=== PATIENT | male | born 1960 | race African-American/Black ===

== ENCOUNTER 2017-05-15 19:20 | Inpatient (IN) | payer MEDICARE, MEDICAID ==
[~2017-05-15] VITALS: Ht 182.9 cm; Wt 108.9 kg
[~2017-05-15 19:20] MED LIST: AMBIEN5 M1 PO; ARTIFICIAL TEA1 EAC2 OP; ASPIR 8181 MG ORAL; AUGMENTIN 875-1 EAC1 ORAL; BUPROPION XL300 MG ORAL; CALCIUM + VITA1 EAC1 PO; CIPROFLOXACIN250 MG PO; CLONIDINE HCL0.1 MG PO; COLACE100 MG ORAL; COZAAR50 MG ORAL; DEPAKOTE250 MG PO; DEPAKOTE500 MG PO; DEXTROSE 50%-WA50 M1 IV; DIVALPROEX SOD500 MG PO; DOCUSATE SODIU100 MG ORAL; DOXYCYCLINE HY100 M2 PO; FERROUS SULFAT325 MG ORAL; FLAGYL500 MG ORAL; FUROSEMIDE40 MG ORAL; GABAPENTIN300 MG/61 ORAL; GEMFIBROZIL600 MG ORAL; GEODON40 MG ORAL; HEPARIN SO5000 UNIT2 SUBQ; LOPID600 MG ORAL; LORAZEPAM0.5 MG ORAL; LORAZEPAM2 MG/1 M3 IV; LOVENOX10 M1 SUBQ; LOVENOX60 MG/0.6 SUBQ; M.V.I. ADULT10 ML IV; MAXIPIME2 G1 IV; MILK OF MA400 MG/51 ORAL; MIRALAX17 G2 ORAL; MORPHINE 22 MG/1 ML IVP; MORPHINE SU4 MG/1 ML IJ; MULTIVITAMINS1 EAC8 ORAL; MYLANTA30 M1 ORAL; NEURONTIN400 MG ORAL; NOVOLOG100 UNIT/3 SUBQ; NOVOLOG100 UNIT/5; POTASSIUM CHLO20 ME3 PO; PROBIOTIC1 EAC2 PO; PROZAC20 MG ORAL; RISPERDAL2 MG ORAL; RISPERIDONE2 MG ORAL; SANTYL30 GM TP; TEMAZEPAM15 MG ORAL; TYLENOL650 MG/20. ORAL; VANCOMYCIN1 GM/2502 IVPB; VIBRAMYCIN100 MG ORAL; VIBRAMYCIN50 MG/5 M1 PO; VITAMIN C500 MG/11 PO; WELLBUTRIN SR100 MG ORAL; ZINC SULFATE220 M1 ORAL; ZOFRAN 4 MG4 MG/2 ML IV; ZYVOX600 MG ORAL; [UNRECOGNIZED DRUG - OTHER] SUBQ
[2017-05-15 20:30] VITALS: BP 157/107
[2017-05-15] MEDS ORDERED: Norco 5mg/325mg tab ORAL ONE (20:45)
[2017-05-15] MEDS ORDERED: Vancomycin 1.5gm/D5W 250ml 250 ML IVPB ONE (20:45)
[2017-05-15] MEDS ORDERED: ARTIFICIAL TEA1 EAC3 OP (20:47)
[2017-05-15] MEDS ORDERED: WELLBUTRIN SR100 MG ORAL (20:47)
[2017-05-15 21:05] LABS: BASOPHILS % (AUTO) 2.1 % (0.0-2.0); LYMPHOCYTES % (AUTO) 12.6 % (20.0-45.0); MEAN CORPUSCULAR HEMOGLOBIN 27.8 PG (27.0-31.0); MEAN CORPUSCULAR HGB CONC 32.4 G/DL (32.0-36.0); MEAN CORPUSCULAR VOLUME 86 FL (80-99); MEAN PLATELET VOLUME 7.3 FL (6.5-10.1); MONOCYTES % (AUTO) 15.7 % (1.0-10.0); NEUTROPHILS % (AUTO) 66.7 % (45.0-75.0); PLATELET COUNT 377 K/UL (150-450); RED CELL DISTRIBUTION WIDTH 13.8 % (11.6-14.8); WHITE BLOOD COUNT 14.1 K/UL (4.8-10.8)
--- NOTE | 2017-05-15 21:11 | Emergency Room Report ---
History of Present Illness General Chief Complaint: Skin Rash/Abscess Source: Patient, Medical Record Present Illness HPI [id number] presents with pain and "gangrene" to left foot for 1 week Denies fever/chills C/o "small" amount of pain Per EMR, has had admissions here for cellulitis previously MRI left foot + for osteo in May 2016 Negative Blood Cx November 2016 Allergies: Coded Allergies: TRIFLUOPERAZINE (Verified Allergy, Unknown, 02/15/16) TRIHEXYPHENIDYL (Verified Allergy, Unknown, 02/15/16) Uncoded Allergies: SIMAZINE (Allergy, Unknown, 05/15/17) Patient History Past Medical History: DM, other - osteomyelitis Past Surgical History: none Social History: Denies: smoking, alcohol use, drug use Immunizations: UTD Reviewed Nursing Documentation: PMH: Agreed, PSxH: Agreed Nursing Documentation-PMH Hx Cardiac Problems: No - Anemia, Bilateral cellulitis, Hyperlipidemia Hx Hypertension: Yes Hx COPD: Yes Hx Diabetes: Yes - Type 2 Hx Cancer: No Hx Gastrointestinal Problems: No Hx Neurological Problems: Yes Hx Peripheral Neuropathy: Yes Hx Weakness: Yes - generalized weakness Review of Systems All Other Systems: negative except mentioned in HPI Physical Exam Vital Signs Date Time Temp Pulse Resp B/P (MAP) Pulse Ox O2 Delivery O2 Flow Rate FiO2 05/15/17 19:12 98.1 100 16 159/99 98 Room Air Sp02 EP Interpretation: reviewed, normal General Appearance: normal inspection, well appearing, no apparent distress, alert Head: normocephalic, atraumatic Eyes: bilateral eye PERRL, bilateral eye EOMI ENT: normal ENT inspection, hearing grossly normal, normal voice Neck: normal inspection, full range of motion, supple, no bony tend Respiratory: normal inspection, lungs clear, normal breath sounds, no respiratory distress, no retraction, no wheezing Cardiovascular #1: regular rate, rhythm, no edema Gastrointestinal: normal inspection, normal bowel sounds, non tender, soft, no guarding, no hernia Genitourinary: no CVA tenderness Musculoskeletal: normal inspection, back normal, normal range of motion, Josh' s Sign negative, other - Left foot: there is multiple areas of skin breakdown and foul smelling odor/yellowish-white pus on top of foot. Able to move all toes. Sensation intact. 2+ dorsalis pedis. Right foot also with small bandage, small area of skin breakdown near ankle. Chronic venosus stasis dermatitis bilaterally. Neurologic: normal inspection, alert, responsive, speech normal Psychiatric: normal inspection, judgement/insight normal, mood/affect normal Skin: normal inspection, normal color, no rash Medical Decision Making Diagnostic Impression: Primary Impression: Cellulitis of left foot ER Course Cellulitis of left foot Had Osteo previously Labs: Leuks 14K. Previously tx by ED here with Vanc and Cefepime Blood Cx negative in November 2016 Will Tx with same Abx Endorsed to Dr Mills for med/surg admission at 915pm Last Vital Signs Date Time Temp Pulse Resp B/P (MAP) Pulse Ox O2 Delivery O2 Flow Rate FiO2 05/15/17 19:12 98.1 100 16 159/99 98 Room Air Status: improved Disposition: ADMITTED INPATIENT Condition: Serious SILVIA NIEVES M.D. May 15, 2017 21:11
[2017-05-15 21:20] LABS: ALBUMIN/GLOBULIN RATIO 0.4 (1.0-2.7); ANION GAP 5 mmol/L (5-15); ASPARTATE AMINO TRANSFERASE 19 U/L (15-37); CALCIUM 8.7 MG/DL (8.5-10.1); CARBON DIOXIDE 28 MMOL/L (21-32); CHLORIDE 101 MMOL/L (98-107); CKMB 4.9 NG/ML (0.0-3.6); CREATININE 1.3 MG/DL (0.55-1.30); GLOMERULAR FILTRATION RATE > 60 mL/min (>60); POTASSIUM 3.6 MMOL/L (3.5-5.1); SODIUM 134 MMOL/L (136-145); TOTAL PROTEIN 6.9 G/DL (6.4-8.2)
[2017-05-15 22:05] LABS: ALANINE AMINOTRANSFERASE 12 U/L (12-78)
[2017-05-15] MEDS ORDERED: Albuterol/Ipratropium 3ml neb HHN PRN (22:45)
[2017-05-15] MEDS ORDERED: LORazepam 0.5mg tab ORAL PRN (22:45)
[2017-05-15] MEDS ORDERED: Nitroglycerin Subl 0.4mg tab SL PRN (22:45)
[2017-05-15] MEDS ORDERED: Morphine Sulfate 2mg/ml Inj IVP PRN (22:45)
[2017-05-15] MEDS ORDERED: Miralax 17gm pkt ORAL PRN (22:45)
[2017-05-15 23:53] VITALS: BP 121/61
--- NOTE | 2017-05-15 23:54 | Infectious Diseases Prog Note ---
Assessment/Plan Problems: (1) Sepsis Assessment & Plan: Due to skin and soft tissue infection. (2) Cellulitis of left foot Assessment & Plan: Agree with empiric cefepime and vancomycin. Has history of Pseudomonas. Subjective Allergies: Coded Allergies: TRIFLUOPERAZINE (Verified Allergy, Unknown, 02/15/16) TRIHEXYPHENIDYL (Verified Allergy, Unknown, 02/15/16) Uncoded Allergies: SIMAZINE (Allergy, Unknown, 05/15/17) Objective Vital Signs Last 24 Hour Vital Signs Date Time Temp Pulse Resp B/P (MAP) Pulse Ox O2 Delivery O2 Flow Rate FiO2 05/15/17 23:11 98.0 107 20 127/74 98 Room Air 05/15/17 22:08 98.0 05/15/17 20:30 98.0 107 20 157/107 97 Room Air 05/15/17 19:12 98.1 100 16 159/99 98 Room Air Height (Feet): 6 Weight (Pounds): 240 Laboratory Tests Test 05/15/17 20:30 White Blood Count 14.1 K/UL (4.8-10.8) H Red Blood Count 4.40 M/UL (4.70-6.10) L Hemoglobin 12.2 G/DL (14.2-18.0) L Hematocrit 37.6 % (42.0-52.0) L Mean Corpuscular Volume 86 FL (80-99) Mean Corpuscular Hemoglobin 27.8 PG (27.0-31.0) Mean Corpuscular Hemoglobin Concent 32.4 G/DL (32.0-36.0) Red Cell Distribution Width 13.8 % (11.6-14.8) Platelet Count 377 K/UL (150-450) Mean Platelet Volume 7.3 FL (6.5-10.1) Neutrophils (%) (Auto) 66.7 % (45.0-75.0) Lymphocytes (%) (Auto) 12.6 % (20.0-45.0) L Monocytes (%) (Auto) 15.7 % (1.0-10.0) H Eosinophils (%) (Auto) 3.0 % (0.0-3.0) Basophils (%) (Auto) 2.1 % (0.0-2.0) H Sodium Level 134 MMOL/L (136-145) L Potassium Level 3.6 MMOL/L (3.5-5.1) Chloride Level 101 MMOL/L (98-107) Carbon Dioxide Level 28 MMOL/L (21-32) Anion Gap 5 mmol/L (5-15) Blood Urea Nitrogen 25 mg/dL (7-18) H Creatinine 1.3 MG/DL (0.55-1.30) Estimat Glomerular Filtration Rate > 60 mL/min (>60) Glucose Level 114 MG/DL (74-106) H Lactic Acid Level 1.20 mmol/L (0.66-2.22) Calcium Level 8.7 MG/DL (8.5-10.1) Total Bilirubin 0.2 MG/DL (0.2-1.0) Aspartate Amino Transf (AST/SGOT) 19 U/L (15-37) Alanine Aminotransferase (ALT/SGPT) 12 U/L (12-78) Alkaline Phosphatase 73 U/L (46-116) Total Creatine Kinase 364 U/L (26-308) H Creatine Kinase MB 4.9 NG/ML (0.0-3.6) H Creatine Kinase MB Relative Index 1.3 Total Protein 6.9 G/DL (6.4-8.2) Albumin 1.8 G/DL (3.4-5.0) L Globulin 5.1 g/dL Albumin/Globulin Ratio 0.4 (1.0-2.7) L Current Medications Medications (Trade) Dose Ordered Sig/Maureen Route PRN Reason Start Time Stop Time Status Last Admin Dose Admin Acetaminophen (Tylenol) 650 mg Q4H PRN ORAL fever 05/15/17 22:45 06/14/17 22:44 Albuterol/ Ipratropium (DuoNeb 0.5-3(2.5)mg/3ml) 3 ml Q4H PRN HHN Shortness of Breath 05/15/17 22:45 05/20/17 22:44 Aspirin (Ecotrin) 81 mg DAILY ORAL 05/16/17 09:00 06/15/17 08:59 Bupropion HCl (Wellbutrin XL) 100 mg BID ORAL 05/16/17 09:00 06/15/17 08:59 UNV Cefepime HCl 2 gm/ Dextrose 110 ml @ 220 mls/hr Q12H IV 05/16/17 00:00 05/23/17 00:00 Clonidine HCl (Catapres) 0.1 mg Q8HR PRN ORAL For High Blood Pressure 05/15/17 22:45 06/14/17 22:44 UNV Dextrose (Dextrose 50%) STAT PRN IV Hypoglycemia 05/15/17 22:45 06/14/17 22:44 Divalproex Sodium (Depakote) 500 mg DAILY ORAL 05/16/17 09:00 06/15/17 08:59 UNV Gabapentin (Neurontin) 300 mg THREE TIMES A DAY ORAL 05/16/17 09:00 06/15/17 08:59 Heparin Sodium (Porcine) (Heparin 5000 units/ml) 5,000 units EVERY 12 HOURS SUBQ 05/16/17 09:00 06/15/17 08:59 Insulin Aspart (NovoLOG) BEFORE MEALS AND HS SUBQ 05/16/17 06:30 06/15/17 06:29 Lorazepam (Ativan) 1 mg Q4H PRN ORAL For Anxiety 05/15/17 22:45 05/22/17 22:44 Morphine Sulfate (Morphine Sulfate) 2 mg Q4H PRN IVP Moderate Pain (Pain Scale 4-6) 05/15/17 22:45 05/22/17 22:44 Nitroglycerin (Ntg) 0.4 mg Q5M PRN SL Prn Chest Pain 05/15/17 22:45 06/14/17 22:44 Ondansetron HCl (Zofran) 4 mg Q6H PRN IVP Nausea & Vomiting 05/15/17 22:45 06/14/17 22:44 Polyethylene Glycol (Miralax) 17 gm DAILYPRN PRN ORAL Constipation 05/15/17 22:45 06/14/17 22:44 Risperidone (RisperDAL) 2 mg BID ORAL 05/16/17 09:00 06/15/17 08:59 Temazepam (Restoril) 15 mg HSPRN PRN ORAL Insomnia 05/15/17 22:45 05/22/17 22:44 Vancomycin HCl 1 gm/Dextrose 275 ml @ 183.3 mls/ hr Q12H IVPB 05/16/17 09:00 05/21/17 08:59 SHELBY DAVILA May 15, 2017 23:54
[2017-05-16] MEDS ORDERED: Cefepime 2gm ONE (00:46)
[2017-05-16] MEDS: NovoLOG Insulin Flexpen SUBQ SCH ×4 (06:30→20:44)
[2017-05-16] MEDS: Vancomycin 1 GM in D5W 275 ML IVPB SCH ×2 (09:25→20:40)
[2017-05-16] MEDS: Aspirin EC 81mg tab ORAL SCH (09:25)
[2017-05-16] MEDS: Depakote ER 500mg tab ORAL SCH (09:25)
[2017-05-16] MEDS: Heparin 5000 units/ml inj SUBQ SCH ×2 (09:32→20:47)
[2017-05-16 10:11] LABS: BASOPHILS % (AUTO) 2.6 % (0.0-2.0); EOSINOPHILS % (AUTO) 1.7 % (0.0-3.0); LYMPHOCYTES % (AUTO) 13.2 % (20.0-45.0); MEAN CORPUSCULAR HEMOGLOBIN 28.5 PG (27.0-31.0); MEAN CORPUSCULAR HGB CONC 33.3 G/DL (32.0-36.0); MEAN CORPUSCULAR VOLUME 85 FL (80-99); MONOCYTES % (AUTO) 8.1 % (1.0-10.0); NEUTROPHILS % (AUTO) 74.5 % (45.0-75.0); PLATELET COUNT 381 K/UL (150-450); RED BLOOD COUNT 4.12 M/UL (4.70-6.10); RED CELL DISTRIBUTION WIDTH 14.2 % (11.6-14.8); WHITE BLOOD COUNT 12.7 K/UL (4.8-10.8)
[2017-05-16 10:28] LABS: ALANINE AMINOTRANSFERASE 10 U/L (12-78); ALBUMIN/GLOBULIN RATIO 0.4 (1.0-2.7); ANION GAP 5 mmol/L (5-15); ASPARTATE AMINO TRANSFERASE 19 U/L (15-37); CALCIUM 8.5 MG/DL (8.5-10.1); CARBON DIOXIDE 27 MMOL/L (21-32); CHLORIDE 102 MMOL/L (98-107); CREATININE 1.1 MG/DL (0.55-1.30); GLOMERULAR FILTRATION RATE > 60 mL/min (>60); SODIUM 134 MMOL/L (136-145); TOTAL PROTEIN 6.4 G/DL (6.4-8.2)
[2017-05-16 12:00] VITALS: BP 127/84
--- NOTE | 2017-05-16 12:20 | Diagnostic Imaging Report ---
Indication: Pain Comparison: None Findings: 3 views of the left foot were obtained. Bones are severely osteopenic. Degree of osteopenia significantly reduces the sensitivity of this exam for detecting a nondisplaced fracture. That said no obvious fracture seen. No erosion or periostitis identified. No soft tissue gas seen. There is soft tissue swelling present. Impression: No obvious acute injury. Severe osteoporosis
--- NOTE | 2017-05-16 12:27 | Diagnostic Imaging Report ---
Indication: Dyspnea Comparison: 02/15/16 A single view chest radiograph was obtained. Findings: Cardiomediastinal appearance is within normal limits for age. Pulmonary vascularity is appropriate. The diaphragmatic contour is smooth and costophrenic angles are sharp. No pleural effusions are identified. The bones are unremarkable. Impression: No acute findings
[2017-05-16] MEDS: Cefepime HCl 2 GM in D5W 110 ML IV SCH ×4 (13:47→23:57)
[2017-05-16] MEDS ORDERED: Tubing IV Secondary IV ONE (15:55)
[2017-05-16] MEDS ORDERED: NS 500ML IV ONE (15:55)
[2017-05-16 16:00] VITALS: BP 130/69
[2017-05-16 20:16] VITALS: BP 138/69
--- NOTE | 2017-05-16 21:52 | Consultation ---
History of Present Illness General Date patient seen: May 15, 2017 Chief Complaint: Skin Rash/Abscess Reason for Consultation: inpatient management Present Illness HPI 56 year old with hx of htn, DM, osteomyelitis and diabetic ulcers of feet presented to [facility] with pain and "gangrene" to left foot for 1 week Denies fever/chills, C/o "small" amount of pain. Pt is admitted for worsening cellulitis and possible osteomyelitis. Allergies: Coded Allergies: TRIFLUOPERAZINE (Verified Allergy, Unknown, 02/15/16) TRIHEXYPHENIDYL (Verified Allergy, Unknown, 02/15/16) Uncoded Allergies: SIMAZINE (Allergy, Unknown, 05/15/17) Medication History Scheduled Aspirin* (Aspir 81*), 81 MG ORAL DAILY, (Reported) Bupropion Hcl* (Wellbutrin*), 100 MG ORAL BID, (Reported) Bupropion Sr* (Wellbutrin Sr*), 100 MG ORAL TWICE A DAY, (Reported) Calcium Carbonate/Vitamin D3 (Calcium + Vitamin D Tablet), 1 EACH PO DAILY, ( Reported) Ciprofloxacin* (Ciprofloxacin*), 750 MG PO BID, (Reported) Collagenase Clostridium Hist. (Santyl), 1 APPLIC TP DAILY, (Reported) Dextran 70/Hypromellose (Artificial Tears), 1 EACH OP BID, (Reported) Divalproex Sodium (Depakote), 500 MG PO DAILY, (Reported) Divalproex Sodium* (Depakote*), 250 MG PO QHS, (Reported) Docusate Sodium* (Docusate Sodium*), 100 MG ORAL TWICE A DAY, (Reported) Doxycycline Hyclate (Doxycycline Hyclate), 100 MG PO Q12HR, (Reported) Furosemide* (Lasix*), 40 MG ORAL DAILY, (Reported) Gabapentin (Gabapentin), 300 MG ORAL THREE TIMES A DAY, (Reported) Gemfibrozil (Gemfibrozil*), 600 MG ORAL BEFORE DINNER, (Reported) Gemfibrozil (Gemfibrozil*), 600 MG ORAL QHS, (Reported) Lactobacillus Acidophilus (Probiotic), 1 EACH PO BID, (Reported) Linezolid* (Zyvox*), 600 MG ORAL EVERY 12 HOURS, (Reported) Losartan Potassium* (Cozaar*), 25 MG ORAL DAILY, (Reported) Metronidazole* (Flagyl*), 500 MG ORAL EVERY 8 HOURS, (Reported) Multivitamin With Minerals (Multivitamins With Minerals*), 1 TAB ORAL DAILY, ( Reported) Polyethylene Glycol 3350* (Miralax*), 17 GM ORAL HS, (Reported) Potassium Chloride (Potassium Chloride), 10 MEQ PO DAILY, (Reported) Risperidone (Risperidone), 2 MG ORAL BID, (Reported) Vit C/Ascorbate Ca/Ascorb Sod (Vitamin C 500 Mg/15 Ml Liquid), 500 MG PO DAILY, (Reported) Zinc Sulfate (Zinc Sulfate*), 220 MG ORAL DAILY, (Reported) Scheduled PRN Acetaminophen (Acetaminophen), 650 MG ORAL Q4HR PRN for Prn Headache/Temp > 101, (Reported) Clonidine Hcl (Clonidine Hcl), 0.1 MG PO Q8HR PRN for For High Blood Pressure, ( Reported) Lorazepam* (Lorazepam*), 1 MG ORAL EVERY 4 HOURS PRN for For Anxiety, (Reported) Magnesium Hydroxide* (Milk Of Magnesia*), 30 ML ORAL DAILY PRN for Constipation, (Reported) Temazepam (Temazepam*), 15 MG ORAL QHS PRN for Insomnia, (Reported) Miscellaneous Medications Dextran 70/Hypromellose/Pf (Artificial Tears Drops), 1 EACH OP, (Reported) Insulin Aspart* (Novolog*), 0 SUBQ, (Reported) Patient History Healthcare decision maker Taina Decker Resuscitation status Full Code Advanced Directive on File Past Medical/Surgical History Past Medical/Surgical History: (1) Anxiety (2) COPD (chronic obstructive pulmonary disease) (3) Psychiatric disorder (4) Cellulitis of left foot Review of Systems All Other Systems: negative except mentioned in HPI Physical Exam General Appearance: WD/WN Lines, tubes and drains: peripheral HEENT: normocephalic, atraumatic Neck: non-tender, normal alignment Abdomen: normal bowel sounds Extremities: normal range of motion, moderate edema, other Skin Exam: normal pigmentation, warm/dry, rash Last 24 Hour Vital Signs Date Time Temp Pulse Resp B/P (MAP) Pulse Ox O2 Delivery O2 Flow Rate FiO2 05/16/17 20:16 98.2 91 20 138/69 97 Room Air 05/16/17 19:53 80 18 Room Air 21 05/16/17 16:00 97.9 91 18 130/69 96 Room Air 05/16/17 12:00 97.3 95 18 127/84 97 Room Air 05/15/17 23:53 98.1 113 20 121/61 97 Room Air 05/15/17 23:11 98.0 107 20 127/74 98 Room Air 05/15/17 22:08 98.0 Intake and Output 05/16/17 05/17/17 19:00 07:00 Intake Total 945.0 ml Output Total 1900 ml Balance -955.0 ml Intake Oral 560 ml IV Total 385.0 ml Output Urine Total 1900 ml Laboratory Tests Test 05/16/17 09:30 White Blood Count 12.7 K/UL (4.8-10.8) H Red Blood Count 4.12 M/UL (4.70-6.10) L Hemoglobin 11.7 G/DL (14.2-18.0) L Hematocrit 35.2 % (42.0-52.0) L Mean Corpuscular Volume 85 FL (80-99) Mean Corpuscular Hemoglobin 28.5 PG (27.0-31.0) Mean Corpuscular Hemoglobin Concent 33.3 G/DL (32.0-36.0) Red Cell Distribution Width 14.2 % (11.6-14.8) Platelet Count 381 K/UL (150-450) Mean Platelet Volume 8.0 FL (6.5-10.1) Neutrophils (%) (Auto) 74.5 % (45.0-75.0) Lymphocytes (%) (Auto) 13.2 % (20.0-45.0) L Monocytes (%) (Auto) 8.1 % (1.0-10.0) Eosinophils (%) (Auto) 1.7 % (0.0-3.0) Basophils (%) (Auto) 2.6 % (0.0-2.0) H Sodium Level 134 MMOL/L (136-145) L Potassium Level 4.0 MMOL/L (3.5-5.1) Chloride Level 102 MMOL/L (98-107) Carbon Dioxide Level 27 MMOL/L (21-32) Anion Gap 5 mmol/L (5-15) Blood Urea Nitrogen 22 mg/dL (7-18) H Creatinine 1.1 MG/DL (0.55-1.30) Estimat Glomerular Filtration Rate > 60 mL/min (>60) Glucose Level 106 MG/DL (74-106) Calcium Level 8.5 MG/DL (8.5-10.1) Total Bilirubin 0.2 MG/DL (0.2-1.0) Aspartate Amino Transf (AST/SGOT) 19 U/L (15-37) Alanine Aminotransferase (ALT/SGPT) 10 U/L (12-78) L Alkaline Phosphatase 65 U/L (46-116) Total Protein 6.4 G/DL (6.4-8.2) Albumin 1.7 G/DL (3.4-5.0) L Globulin 4.7 g/dL Albumin/Globulin Ratio 0.4 (1.0-2.7) L Height (Feet): 6 Height (Inches): 0.00 Weight (Pounds): 240 Medications Current Medications Medications (Trade) Dose Ordered Sig/Maureen Route PRN Reason Start Time Stop Time Status Last Admin Dose Admin Acetaminophen (Tylenol) 650 mg Q4H PRN ORAL fever 05/15/17 22:45 06/14/17 22:44 Albuterol/ Ipratropium (DuoNeb 0.5-3(2.5)mg/3ml) 3 ml Q4H PRN HHN Shortness of Breath 05/15/17 22:45 05/20/17 22:44 Aspirin (Ecotrin) 81 mg DAILY ORAL 05/16/17 09:00 06/15/17 08:59 05/16/17 09:25 Bupropion HCl (Wellbutrin) 100 mg BID ORAL 05/16/17 09:00 06/15/17 08:59 05/16/17 17:36 Cefepime HCl 2 gm/ Dextrose 110 ml @ 220 mls/hr Q12H IV 05/16/17 00:00 05/23/17 00:00 05/16/17 13:47 Clonidine HCl (Catapres) 0.1 mg Q8H PRN ORAL SBP > 160 mmHg 05/15/17 22:45 06/14/17 22:44 Dextrose (Dextrose 50%) STAT PRN IV Hypoglycemia 05/15/17 22:45 06/14/17 22:44 Divalproex Sodium (Depakote ER) 500 mg DAILY ORAL 05/16/17 09:00 06/15/17 08:59 05/16/17 09:25 Gabapentin (Neurontin) 300 mg THREE TIMES A DAY ORAL 05/16/17 09:00 06/15/17 08:59 05/16/17 17:36 Heparin Sodium (Porcine) (Heparin 5000 units/ml) 5,000 units EVERY 12 HOURS SUBQ 05/16/17 09:00 06/15/17 08:59 05/16/17 20:47 Insulin Aspart (NovoLOG) BEFORE MEALS AND HS SUBQ 05/16/17 06:30 06/15/17 06:29 Lorazepam (Ativan) 1 mg Q4H PRN ORAL For Anxiety 05/15/17 22:45 05/22/17 22:44 Morphine Sulfate (Morphine Sulfate) 2 mg Q4H PRN IVP Moderate Pain (Pain Scale 4-6) 05/15/17 22:45 05/22/17 22:44 Nitroglycerin (Ntg) 0.4 mg Q5M PRN SL Prn Chest Pain 05/15/17 22:45 06/14/17 22:44 Ondansetron HCl (Zofran) 4 mg Q6H PRN IVP Nausea & Vomiting 05/15/17 22:45 06/14/17 22:44 Polyethylene Glycol (Miralax) 17 gm DAILYPRN PRN ORAL Constipation 05/15/17 22:45 06/14/17 22:44 Risperidone (RisperDAL) 2 mg BID ORAL 05/16/17 09:00 06/15/17 08:59 05/16/17 17:36 Temazepam (Restoril) 15 mg HSPRN PRN ORAL Insomnia 05/15/17 22:45 05/22/17 22:44 Vancomycin HCl 1 gm/Dextrose 275 ml @ 183.3 mls/ hr Q12H IVPB 05/16/17 09:00 05/21/17 08:59 05/16/17 20:40 Assessment/Plan Problem List: (1) Sepsis ICD Codes: A41.9 - Sepsis, unspecified organism SNOMED: 99411366 (2) Cellulitis of left foot ICD Codes: L03.116 - Cellulitis of left lower limb SNOMED: 450737857 (3) Psychiatric disorder ICD Codes: F99 - Mental disorder, not otherwise specified SNOMED: 18555519, 426775158 (4) Anxiety ICD Codes: F41.9 - Anxiety disorder, unspecified SNOMED: 54824605 (5) COPD (chronic obstructive pulmonary disease) ICD Codes: J44.9 - Chronic obstructive pulmonary disease, unspecified SNOMED: 87537238 Assessment/Plan guevara culture IV abx wound care sliding scale, diabetic diet DALE EARLY May 16, 2017 21:52
--- NOTE | 2017-05-16 21:53 | Pulmonology Progress Note ---
Assessment/Plan Problems: (1) Sepsis (2) Cellulitis of left foot (3) Psychiatric disorder (4) Anxiety (5) COPD (chronic obstructive pulmonary disease) Assessment/Plan guevara culture IV abx wound care sliding scale, diabetic diet all noted check electrolytes f/u ID recommendations Subjective ROS Limited/Unobtainable: No Constitutional: Reports: no symptoms Respiratory: Reports: no symptoms Allergies: Coded Allergies: TRIFLUOPERAZINE (Verified Allergy, Unknown, 02/15/16) TRIHEXYPHENIDYL (Verified Allergy, Unknown, 02/15/16) Uncoded Allergies: SIMAZINE (Allergy, Unknown, 05/15/17) Objective Last 24 Hour Vital Signs Date Time Temp Pulse Resp B/P (MAP) Pulse Ox O2 Delivery O2 Flow Rate FiO2 05/16/17 20:16 98.2 91 20 138/69 97 Room Air 05/16/17 19:53 80 18 Room Air 21 05/16/17 16:00 97.9 91 18 130/69 96 Room Air 05/16/17 12:00 97.3 95 18 127/84 97 Room Air 05/15/17 23:53 98.1 113 20 121/61 97 Room Air 05/15/17 23:11 98.0 107 20 127/74 98 Room Air 05/15/17 22:08 98.0 Intake and Output 05/16/17 05/17/17 19:00 07:00 Intake Total 945.0 ml Output Total 1900 ml Balance -955.0 ml Intake Oral 560 ml IV Total 385.0 ml Output Urine Total 1900 ml General Appearance: WD/WN Respiratory/Chest: chest wall non-tender, lungs clear Cardiovascular: normal peripheral pulses, normal rate Abdomen: normal bowel sounds, soft, non tender Genitourinary: normal external genitalia Extremities: no cyanosis 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, abnormal gait Laboratory Tests 05/16/17 09:30: White Blood Count 12.7H, Red Blood Count 4.12L, Hemoglobin 11.7L, Hematocrit 35.2L, Mean Corpuscular Volume 85, Mean Corpuscular Hemoglobin 28.5, Mean Corpuscular Hemoglobin Concent 33.3, Red Cell Distribution Width 14.2, Platelet Count 381, Mean Platelet Volume 8.0, Neutrophils (%) (Auto) 74.5, Lymphocytes (% ) (Auto) 13.2L, Monocytes (%) (Auto) 8.1, Eosinophils (%) (Auto) 1.7, Basophils (%) (Auto) 2.6H, Sodium Level 134L, Potassium Level 4.0, Chloride Level 102, Carbon Dioxide Level 27, Anion Gap 5, Blood Urea Nitrogen 22H, Creatinine 1.1, Estimat Glomerular Filtration Rate > 60, Glucose Level 106, Calcium Level 8.5, Total Bilirubin 0.2, Aspartate Amino Transf (AST/SGOT) 19, Alanine Aminotransferase (ALT/SGPT) 10L, Alkaline Phosphatase 65, Total Protein 6.4, Albumin 1.7L, Globulin 4.7, Albumin/Globulin Ratio 0.4L Current Medications Medications (Trade) Dose Ordered Sig/Maureen Route PRN Reason Start Time Stop Time Status Last Admin Dose Admin Acetaminophen (Tylenol) 650 mg Q4H PRN ORAL fever 05/15/17 22:45 06/14/17 22:44 Albuterol/ Ipratropium (DuoNeb 0.5-3(2.5)mg/3ml) 3 ml Q4H PRN HHN Shortness of Breath 05/15/17 22:45 05/20/17 22:44 Aspirin (Ecotrin) 81 mg DAILY ORAL 05/16/17 09:00 06/15/17 08:59 05/16/17 09:25 Bupropion HCl (Wellbutrin) 100 mg BID ORAL 05/16/17 09:00 06/15/17 08:59 05/16/17 17:36 Cefepime HCl 2 gm/ Dextrose 110 ml @ 220 mls/hr Q12H IV 05/16/17 00:00 05/23/17 00:00 05/16/17 13:47 Clonidine HCl (Catapres) 0.1 mg Q8H PRN ORAL SBP > 160 mmHg 05/15/17 22:45 06/14/17 22:44 Dextrose (Dextrose 50%) STAT PRN IV Hypoglycemia 05/15/17 22:45 06/14/17 22:44 Divalproex Sodium (Depakote ER) 500 mg DAILY ORAL 05/16/17 09:00 06/15/17 08:59 05/16/17 09:25 Gabapentin (Neurontin) 300 mg THREE TIMES A DAY ORAL 05/16/17 09:00 06/15/17 08:59 05/16/17 17:36 Heparin Sodium (Porcine) (Heparin 5000 units/ml) 5,000 units EVERY 12 HOURS SUBQ 05/16/17 09:00 06/15/17 08:59 05/16/17 20:47 Insulin Aspart (NovoLOG) BEFORE MEALS AND HS SUBQ 05/16/17 06:30 06/15/17 06:29 Lorazepam (Ativan) 1 mg Q4H PRN ORAL For Anxiety 05/15/17 22:45 05/22/17 22:44 Morphine Sulfate (Morphine Sulfate) 2 mg Q4H PRN IVP Moderate Pain (Pain Scale 4-6) 05/15/17 22:45 05/22/17 22:44 Nitroglycerin (Ntg) 0.4 mg Q5M PRN SL Prn Chest Pain 05/15/17 22:45 06/14/17 22:44 Ondansetron HCl (Zofran) 4 mg Q6H PRN IVP Nausea & Vomiting 05/15/17 22:45 06/14/17 22:44 Polyethylene Glycol (Miralax) 17 gm DAILYPRN PRN ORAL Constipation 05/15/17 22:45 06/14/17 22:44 Risperidone (RisperDAL) 2 mg BID ORAL 05/16/17 09:00 06/15/17 08:59 05/16/17 17:36 Temazepam (Restoril) 15 mg HSPRN PRN ORAL Insomnia 05/15/17 22:45 05/22/17 22:44 Vancomycin HCl 1 gm/Dextrose 275 ml @ 183.3 mls/ hr Q12H IVPB 05/16/17 09:00 05/21/17 08:59 05/16/17 20:40 DALE EARLY May 16, 2017 21:53
[2017-05-17] MEDS: NovoLOG Insulin Flexpen SUBQ SCH ×4 (05:55→21:00)
[2017-05-17 08:00] VITALS: BP 120/73
--- NOTE | 2017-05-17 08:30 | History and Physical Report ---
DATE OF ADMISSION: 05/15/2017 TIME SEEN: 3 p.m. CONSULTANTS: 1. Des Hall D.P.M. 2. Dr. Villasenor. 3. Jimi Leos M.D. 4. Tadeo Turner M.D. CHIEF COMPLAINTS: Cellulitis of the left foot, edema, and sepsis. BRIEF HISTORY: This is a 56-[facility]-old [facility], who presents with increased cellulitis of the left foot. The patient has had a history of osteomyelitis and came in, diagnosed with the above, white count 14, and admitted to the medical floor for further treatment. Currently, calm in bed, confused, and not talking much. PAST MEDICAL HISTORY: Encephalopathy, diabetes, COPD, and anemia. PAST SURGICAL HISTORY: Unknown. MEDICATIONS: Ecotrin, Wellbutrin, Depakote, Neurontin, Risperdal, vancomycin, NovoLog, Catapres, cefepime, and lorazepam. ALLERGIES: Trifluoperazine, trihexyphenidyl, and . SOCIAL HISTORY: Unable to obtain secondary to the patient's confusion. REVIEW OF SYSTEMS: Unavailable. PHYSICAL EXAMINATION: GENERAL: Calm in bed, oriented x1, and in no acute distress. VITAL SIGNS: Temperature 97 degrees, pulse 95, respirations 18, and blood pressure 127/84. CARDIOVASCULAR: No murmurs. LUNGS: Poor air exchange. ABDOMEN: Bowel sounds are positive. Nontender and nondistended. EXTREMITIES: No cyanosis or clubbing. There is 1+ edema. Foot dressing dirty, disheveled, slightly stained. LABORATORY DATA: Labs, at this time, show white count 12.7 and hemoglobin and hematocrit are 11.7 and 35, otherwise CBC is normal. BMP shows sodium 134, BUN 22. Albumin 1.7. ASSESSMENT AND PLAN: 1. Cellulitis of the left foot. 2. Sepsis. 3. History of osteomyelitis. 4. Anemia. 5. Leukocytosis. 6. Edema. 7. Encephalopathy. 8. Chronic obstructive pulmonary disease. 9. Malnutrition. PLAN: 1. Continue premedications and wound care. 2. Antibiotics per Infectious Disease. 3. O2 and pulmonary treatment as needed. 4. Blood pressure and blood sugar control. 5. Pain control. 6. Dietary followup. 7. CBC and BMP in the morning. 8. We will continue to follow this patient medically. 9. Dr. Hall, Dr. Villasenor, Dr. Leos, and Dr. Turner to consult. Kike Mills D.O. DR: REGAN JOB#: [id number] CC:
[2017-05-17] MEDS: Heparin 5000 units/ml inj SUBQ SCH ×2 (09:00→21:42)
--- NOTE | 2017-05-17 09:31 | Pulmonology Progress Note ---
Assessment/Plan Assessment/Plan ASSESSMENT Left foot cellulitis hx of osteo HTN DM COPD PLAN OF CARE MS floor abx blood cx preliminary negative, get wound cx ID follows fup with cx O2 HHN prn CXR negative Venous Duplex BLE negative foot X ray no acute injury, + severe OP BS management with SS of insulin BP management Pain management continue ASA DVT prophylaxis declined wound nurse eval consider podiatry eval-per PMD discretion wound care case discussed and evaluated by supervising physician Subjective Allergies: Coded Allergies: TRIFLUOPERAZINE (Verified Allergy, Unknown, 02/15/16) TRIHEXYPHENIDYL (Verified Allergy, Unknown, 02/15/16) Uncoded Allergies: SIMAZINE (Allergy, Unknown, 05/15/17) Subjective leuk trending down afebrile Objective Last 24 Hour Vital Signs Date Time Temp Pulse Resp B/P (MAP) Pulse Ox O2 Delivery O2 Flow Rate FiO2 05/17/17 08:00 97.7 105 18 120/73 98 Room Air 05/16/17 20:16 98.2 91 20 138/69 97 Room Air 05/16/17 19:53 80 18 Room Air 21 05/16/17 16:00 97.9 91 18 130/69 96 Room Air 05/16/17 12:00 97.3 95 18 127/84 97 Room Air General Appearance: no acute distress, other - AA male disheveled, looking older than his biological age HEENT: normocephalic, atraumatic, anicteric Respiratory/Chest: lungs clear - with moderate air entry , no respiratory distress, no accessory muscle use Cardiovascular: normal rate, regular rhythm, no JVD Abdomen: normal bowel sounds, soft, non tender, non distended Extremities: other - L foot wound with erythem, edema, yellowish drainage Neurologic/Psychiatric: alert, responsive Microbiology Date/Time Source Procedure Growth Status 05/15/17 20:30 Blood Blood Culture - Preliminary NO GROWTH AFTER 24 HOURS Resulted 05/15/17 20:15 Blood Blood Culture - Preliminary NO GROWTH AFTER 24 HOURS Resulted Laboratory Tests 05/16/17 09:30: White Blood Count 12.7H, Red Blood Count 4.12L, Hemoglobin 11.7L, Hematocrit 35.2L, Mean Corpuscular Volume 85, Mean Corpuscular Hemoglobin 28.5, Mean Corpuscular Hemoglobin Concent 33.3, Red Cell Distribution Width 14.2, Platelet Count 381, Mean Platelet Volume 8.0, Neutrophils (%) (Auto) 74.5, Lymphocytes (% ) (Auto) 13.2L, Monocytes (%) (Auto) 8.1, Eosinophils (%) (Auto) 1.7, Basophils (%) (Auto) 2.6H, Sodium Level 134L, Potassium Level 4.0, Chloride Level 102, Carbon Dioxide Level 27, Anion Gap 5, Blood Urea Nitrogen 22H, Creatinine 1.1, Estimat Glomerular Filtration Rate > 60, Glucose Level 106, Calcium Level 8.5, Total Bilirubin 0.2, Aspartate Amino Transf (AST/SGOT) 19, Alanine Aminotransferase (ALT/SGPT) 10L, Alkaline Phosphatase 65, Total Protein 6.4, Albumin 1.7L, Globulin 4.7, Albumin/Globulin Ratio 0.4L Current Medications Medications (Trade) Dose Ordered Sig/Maureen Route PRN Reason Start Time Stop Time Status Last Admin Dose Admin Acetaminophen (Tylenol) 650 mg Q4H PRN ORAL fever 05/15/17 22:45 06/14/17 22:44 Albuterol/ Ipratropium (DuoNeb 0.5-3(2.5)mg/3ml) 3 ml Q4H PRN HHN Shortness of Breath 05/15/17 22:45 05/20/17 22:44 Aspirin (Ecotrin) 81 mg DAILY ORAL 05/16/17 09:00 06/15/17 08:59 05/16/17 09:25 Bupropion HCl (Wellbutrin) 100 mg BID ORAL 05/16/17 09:00 06/15/17 08:59 05/16/17 17:36 Cefepime HCl 2 gm/ Dextrose 110 ml @ 220 mls/hr Q12H IV 05/16/17 00:00 05/23/17 00:00 05/16/17 23:57 Clonidine HCl (Catapres) 0.1 mg Q8H PRN ORAL SBP > 160 mmHg 05/15/17 22:45 06/14/17 22:44 Dextrose (Dextrose 50%) STAT PRN IV Hypoglycemia 05/15/17 22:45 06/14/17 22:44 Divalproex Sodium (Depakote ER) 500 mg DAILY ORAL 05/16/17 09:00 06/15/17 08:59 05/16/17 09:25 Gabapentin (Neurontin) 300 mg THREE TIMES A DAY ORAL 05/16/17 09:00 06/15/17 08:59 05/16/17 17:36 Heparin Sodium (Porcine) (Heparin 5000 units/ml) 5,000 units EVERY 12 HOURS SUBQ 05/16/17 09:00 06/15/17 08:59 05/16/17 20:47 Insulin Aspart (NovoLOG) BEFORE MEALS AND HS SUBQ 05/16/17 06:30 06/15/17 06:29 Lorazepam (Ativan) 1 mg Q4H PRN ORAL For Anxiety 05/15/17 22:45 05/22/17 22:44 Morphine Sulfate (Morphine Sulfate) 2 mg Q4H PRN IVP Moderate Pain (Pain Scale 4-6) 05/15/17 22:45 05/22/17 22:44 Nitroglycerin (Ntg) 0.4 mg Q5M PRN SL Prn Chest Pain 05/15/17 22:45 06/14/17 22:44 Ondansetron HCl (Zofran) 4 mg Q6H PRN IVP Nausea & Vomiting 05/15/17 22:45 06/14/17 22:44 Polyethylene Glycol (Miralax) 17 gm DAILYPRN PRN ORAL Constipation 05/15/17 22:45 06/14/17 22:44 Risperidone (RisperDAL) 2 mg BID ORAL 05/16/17 09:00 06/15/17 08:59 05/16/17 17:36 Temazepam (Restoril) 15 mg HSPRN PRN ORAL Insomnia 05/15/17 22:45 05/22/17 22:44 Vancomycin HCl 1 gm/Dextrose 275 ml @ 183.3 mls/ hr Q12H IVPB 05/16/17 09:00 05/21/17 08:59 05/16/17 20:40 Bri Reza NP ([facility]anchtein) May 17, 2017 09:31
[2017-05-17] MEDS: Depakote ER 500mg tab ORAL SCH (09:46)
[2017-05-17] MEDS: Aspirin EC 81mg tab ORAL SCH (09:46)
[2017-05-17] MEDS: Vancomycin 1 GM in D5W 275 ML IVPB SCH (11:02)
[2017-05-17 12:00] VITALS: BP 115/69
[2017-05-17] MEDS: Cefepime HCl 2 GM in D5W 110 ML IV SCH (12:33)
--- NOTE | 2017-05-17 13:18 | General Progress Note ---
Assessment/Plan Problem List: (1) Hyponatremia ICD Codes: E87.1 - Hypo-osmolality and hyponatremia SNOMED: 43197183 (2) Rash and other nonspecific skin eruption ICD Codes: R21 - Rash and other nonspecific skin eruption SNOMED: 882117919 (3) Open wnd foot-complicated ICD Codes: S91.309A - Unspecified open wound, unspecified foot, initial encounter SNOMED: 461099333 (4) UTI (urinary tract infection) ICD Codes: N39.0 - Urinary tract infection, site not specified SNOMED: 25994448 (5) Anemia ICD Codes: D64.9 - Anemia, unspecified SNOMED: 776157696 (6) Cellulitis of left foot ICD Codes: L03.116 - Cellulitis of left lower limb SNOMED: 661730681 (7) Cellulitis ICD Codes: L03.90 - Cellulitis, unspecified SNOMED: 557180371 (8) Sepsis ICD Codes: A41.9 - Sepsis, unspecified organism SNOMED: 33076959 (9) COPD (chronic obstructive pulmonary disease) ICD Codes: J44.9 - Chronic obstructive pulmonary disease, unspecified SNOMED: 40013913 (10) Anxiety ICD Codes: F41.9 - Anxiety disorder, unspecified SNOMED: 35743421 (11) Psychiatric disorder ICD Codes: F99 - Mental disorder, not otherwise specified SNOMED: 18459046, 520180812 Status: stable, progressing, tolerating diet Assessment/Plan ot pt diet wound care abc cbc bmp am psyc transfer if clear Subjective Constitutional: Reports: weakness Allergies: Coded Allergies: TRIFLUOPERAZINE (Verified Allergy, Unknown, 02/15/16) TRIHEXYPHENIDYL (Verified Allergy, Unknown, 02/15/16) Uncoded Allergies: SIMAZINE (Allergy, Unknown, 05/15/17) All Systems: reviewed and negative except above Subjective sl confused Objective Last 24 Hour Vital Signs Date Time Temp Pulse Resp B/P (MAP) Pulse Ox O2 Delivery O2 Flow Rate FiO2 05/17/17 12:00 97.5 96 18 115/69 98 Room Air 05/17/17 10:27 82 16 Room Air 21 05/17/17 08:00 97.7 105 18 120/73 98 Room Air 05/16/17 20:16 98.2 91 20 138/69 97 Room Air 05/16/17 19:53 80 18 Room Air 21 05/16/17 16:00 97.9 91 18 130/69 96 Room Air Height (Feet): 6 Height (Inches): 0.00 Weight (Pounds): 240 General Appearance: lethargic, confused EENT: normal ENT inspection Neck: normal alignment Cardiovascular: normal peripheral pulses, normal rate, regular rhythm Respiratory/Chest: chest wall non-tender, lungs clear, normal breath sounds Abdomen: normal bowel sounds, non tender, soft Extremities: normal inspection Edema: no edema noted Arm (L), no edema noted Arm (R), no edema noted Leg (L), no edema noted Leg (R), no edema noted Pedal (L), no edema noted Pedal (R), no edema noted Generalized Neurologic: responsive, motor weakness Skin: normal pigmentation, warm/dry ALCIDES VILLANUEVA May 17, 2017 13:18
--- NOTE | 2017-05-17 13:33 | Wound Nurse Progress Note ---
Wound RN Progress Note Wound Consult Pt refused for assessment. Offered X2, Stated "they took the picture. you can see it from the picture". Reported to the RN who is taking the care of the Pt. JANELL DELONG RN May 17, 2017 13:33
[2017-05-17 20:27] VITALS: BP 133/79
[2017-05-17] MEDS: Linezolid 600mg/300ml (Pre-Mix) IVPB SCH (21:17)
--- NOTE | 2017-05-17 23:24 | Infectious Diseases Prog Note ---
Assessment/Plan Problems: (1) Sepsis Assessment & Plan: Due to skin and soft tissue infection. WBC better. (2) Cellulitis of left foot Assessment & Plan: Continue with cefepime. Change vancomycin to linezolid until patient more compliant. Has history of Pseudomonas. Follow-up wound culture. (3) Non-compliance Assessment & Plan: Refusing lab work. Subjective Allergies: Coded Allergies: TRIFLUOPERAZINE (Verified Allergy, Unknown, 02/15/16) TRIHEXYPHENIDYL (Verified Allergy, Unknown, 02/15/16) Uncoded Allergies: SIMAZINE (Allergy, Unknown, 05/15/17) Objective Vital Signs Last 24 Hour Vital Signs Date Time Temp Pulse Resp B/P (MAP) Pulse Ox O2 Delivery O2 Flow Rate FiO2 05/17/17 20:27 97.6 93 18 133/79 98 Room Air 05/17/17 20:16 97 16 Room Air 21 05/17/17 12:00 97.5 96 18 115/69 98 Room Air 05/17/17 10:27 82 16 Room Air 21 05/17/17 08:00 97.7 105 18 120/73 98 Room Air Height (Feet): 6 Height (Inches): 0.00 Weight (Pounds): 240 Microbiology Date/Time Source Procedure Growth Status 05/15/17 20:30 Blood Blood Culture - Preliminary NO GROWTH AFTER 24 HOURS Resulted 05/15/17 20:15 Blood Blood Culture - Preliminary NO GROWTH AFTER 24 HOURS Resulted Current Medications Medications (Trade) Dose Ordered Sig/Maureen Route PRN Reason Start Time Stop Time Status Last Admin Dose Admin Acetaminophen (Tylenol) 650 mg Q4H PRN ORAL fever 05/15/17 22:45 06/14/17 22:44 Albuterol/ Ipratropium (DuoNeb 0.5-3(2.5)mg/3ml) 3 ml Q4H PRN HHN Shortness of Breath 05/15/17 22:45 05/20/17 22:44 Aspirin (Ecotrin) 81 mg DAILY ORAL 05/16/17 09:00 06/15/17 08:59 05/17/17 09:46 Cefepime HCl 2 gm/ Dextrose 110 ml @ 220 mls/hr Q12H IV 05/16/17 00:00 05/23/17 00:00 05/17/17 12:33 Clonidine HCl (Catapres) 0.1 mg Q8H PRN ORAL SBP > 160 mmHg 05/15/17 22:45 06/14/17 22:44 Dextrose (Dextrose 50%) STAT PRN IV Hypoglycemia 05/15/17 22:45 06/14/17 22:44 Divalproex Sodium (Depakote ER) 500 mg DAILY ORAL 05/16/17 09:00 06/15/17 08:59 05/17/17 09:46 Gabapentin (Neurontin) 300 mg THREE TIMES A DAY ORAL 05/16/17 09:00 06/15/17 08:59 05/17/17 17:19 Heparin Sodium (Porcine) (Heparin 5000 units/ml) 5,000 units EVERY 12 HOURS SUBQ 05/16/17 09:00 06/15/17 08:59 05/17/17 21:42 Insulin Aspart (NovoLOG) BEFORE MEALS AND HS SUBQ 05/16/17 06:30 06/15/17 06:29 Linezolid 300 ml @ 300 mls/hr Q12HR IVPB 05/17/17 21:00 05/24/17 20:59 05/17/17 21:17 Lorazepam (Ativan) 1 mg Q4H PRN ORAL For Anxiety 05/15/17 22:45 05/22/17 22:44 Morphine Sulfate (Morphine Sulfate) 2 mg Q4H PRN IVP Moderate Pain (Pain Scale 4-6) 05/15/17 22:45 05/22/17 22:44 Nitroglycerin (Ntg) 0.4 mg Q5M PRN SL Prn Chest Pain 05/15/17 22:45 06/14/17 22:44 Ondansetron HCl (Zofran) 4 mg Q6H PRN IVP Nausea & Vomiting 05/15/17 22:45 06/14/17 22:44 Polyethylene Glycol (Miralax) 17 gm DAILYPRN PRN ORAL Constipation 05/15/17 22:45 06/14/17 22:44 Risperidone (RisperDAL) 2 mg BID ORAL 05/16/17 09:00 06/15/17 08:59 05/17/17 17:18 Temazepam (Restoril) 15 mg HSPRN PRN ORAL Insomnia 05/15/17 22:45 05/22/17 22:44 SHELBY DAVILA May 17, 2017 23:24
[2017-05-18] MEDS: Cefepime HCl 2 GM in D5W 110 ML IV SCH ×3 (00:05→23:38)
[2017-05-18 00:16] VITALS: BP 130/61
[2017-05-18] MEDS: NovoLOG Insulin Flexpen SUBQ SCH ×4 (06:30→21:00)
--- NOTE | 2017-05-18 07:55 | Consultation ---
Consult Note Assessment/Plan A/ 1) Sepsis 2) Cellulitis of LLE 3) Nonpressure ulcer of left ankle to level of muscle 4) Nonpressure ulcer of left foot to level of muscle 5) Nonpressure ulcer of right ankle to level of muscle 6) Edema 7) DM 8) Noncompliant 9) Anemia P/ 1) Patient would not allow me to fully examine him 2) Extensive chart review performed from previous admissions 3) Wound care recommendations to include edema control 4) Wounds are deteriorating 2/2 noncompliance. Patient would benefit from debridement of wounds but refuses 5) Abx per ID 6) Medical optimization of edema, DM and anemia to assist in wound healing. 7) Will follow Thank you Des Navarro DPM May 18, 2017 07:55
--- NOTE | 2017-05-18 08:30 | Pulmonology Progress Note ---
Assessment/Plan Assessment/Plan ASSESSMENT Left foot cellulitis hx of osteo Non pressure ulcer of left ankle to level of muscle Non pressure ulcer of left foot to level of muscle Non pressure ulcer of right ankle to level of muscle HTN DM COPD noncompliance anemia hypoalbuminemia possible protein calorie malnutrition PLAN OF CARE MS floor abx blood cx preliminary negative, get wound cx ID follows fup with cx O2 HHN prn CXR negative Venous Duplex BLE negative foot X ray no acute injury, + severe OP BS management with SS of insulin BP management Pain management continue ASA DVT prophylaxis declined wound nurse eval podiatry seen and examined, patient still did not allow full examination per printed circuit board drafter patient will benefit from debridement- but declined wound care check prealbumin dietary eval case discussed and evaluated by supervising physician Subjective Allergies: Coded Allergies: TRIFLUOPERAZINE (Verified Allergy, Unknown, 02/15/16) TRIHEXYPHENIDYL (Verified Allergy, Unknown, 02/15/16) Uncoded Allergies: SIMAZINE (Allergy, Unknown, 05/15/17) Subjective leuk trending down afebrile declined wound care nurse examination printed circuit board drafter seen and examined Objective Last 24 Hour Vital Signs Date Time Temp Pulse Resp B/P (MAP) Pulse Ox O2 Delivery O2 Flow Rate FiO2 05/18/17 00:16 97.6 71 18 130/61 96 Room Air 05/17/17 20:27 97.6 93 18 133/79 98 Room Air 05/17/17 20:16 97 16 Room Air 21 05/17/17 12:00 97.5 96 18 115/69 98 Room Air 05/17/17 10:27 82 16 Room Air 21 Objective General Appearance: no acute distress, AA male disheveled, looking older than his biological age HEENT: normocephalic, atraumatic, anicteric Respiratory/Chest: lungs clear - with moderate air entry , no respiratory distress, no accessory muscle use Cardiovascular: normal rate, regular rhythm, no JVD Abdomen: normal bowel sounds, soft, non tender, non distended Extremities: other - L foot wound with erythema, edema, yellowish drainage Neurologic/Psychiatric: alert, responsive Microbiology Date/Time Source Procedure Growth Status 05/15/17 20:30 Blood Blood Culture - Preliminary NO GROWTH AFTER 48 HOURS Resulted 05/15/17 20:15 Blood Blood Culture - Preliminary NO GROWTH AFTER 48 HOURS Resulted 05/15/17 22:52 Nasal Nares MRSA Culture - Final NO METHICILLIN RESISTANT STAPH AUREUS... Complete Current Medications Medications (Trade) Dose Ordered Sig/Maureen Route PRN Reason Start Time Stop Time Status Last Admin Dose Admin Acetaminophen (Tylenol) 650 mg Q4H PRN ORAL fever 05/15/17 22:45 06/14/17 22:44 Albuterol/ Ipratropium (DuoNeb 0.5-3(2.5)mg/3ml) 3 ml Q4H PRN HHN Shortness of Breath 05/15/17 22:45 05/20/17 22:44 Aspirin (Ecotrin) 81 mg DAILY ORAL 05/16/17 09:00 06/15/17 08:59 05/17/17 09:46 Cefepime HCl 2 gm/ Dextrose 110 ml @ 220 mls/hr Q12H IV 05/16/17 00:00 05/23/17 00:00 05/18/17 00:05 Clonidine HCl (Catapres) 0.1 mg Q8H PRN ORAL SBP > 160 mmHg 05/15/17 22:45 06/14/17 22:44 Dextrose (Dextrose 50%) STAT PRN IV Hypoglycemia 05/15/17 22:45 06/14/17 22:44 Divalproex Sodium (Depakote ER) 500 mg DAILY ORAL 05/16/17 09:00 06/15/17 08:59 05/17/17 09:46 Gabapentin (Neurontin) 300 mg THREE TIMES A DAY ORAL 05/16/17 09:00 06/15/17 08:59 05/17/17 17:19 Heparin Sodium (Porcine) (Heparin 5000 units/ml) 5,000 units EVERY 12 HOURS SUBQ 05/16/17 09:00 06/15/17 08:59 05/17/17 21:42 Insulin Aspart (NovoLOG) BEFORE MEALS AND HS SUBQ 05/16/17 06:30 06/15/17 06:29 Linezolid 300 ml @ 300 mls/hr Q12HR IVPB 05/17/17 21:00 05/24/17 20:59 05/17/17 21:17 Lorazepam (Ativan) 1 mg Q4H PRN ORAL For Anxiety 05/15/17 22:45 05/22/17 22:44 Morphine Sulfate (Morphine Sulfate) 2 mg Q4H PRN IVP Moderate Pain (Pain Scale 4-6) 05/15/17 22:45 05/22/17 22:44 Nitroglycerin (Ntg) 0.4 mg Q5M PRN SL Prn Chest Pain 05/15/17 22:45 06/14/17 22:44 Ondansetron HCl (Zofran) 4 mg Q6H PRN IVP Nausea & Vomiting 05/15/17 22:45 06/14/17 22:44 Polyethylene Glycol (Miralax) 17 gm DAILYPRN PRN ORAL Constipation 05/15/17 22:45 06/14/17 22:44 Risperidone (RisperDAL) 2 mg BID ORAL 05/16/17 09:00 06/15/17 08:59 05/17/17 17:18 Temazepam (Restoril) 15 mg HSPRN PRN ORAL Insomnia 05/15/17 22:45 05/22/17 22:44 Juaquin DominguezBri pruitt NP May 18, 2017 08:30
[2017-05-18] MEDS: Linezolid 600mg/300ml (Pre-Mix) IVPB SCH ×2 (08:52→21:43)
[2017-05-18] MEDS: Aspirin EC 81mg tab ORAL SCH (08:53)
[2017-05-18] MEDS: Depakote ER 500mg tab ORAL SCH (08:53)
[2017-05-18] MEDS: Heparin 5000 units/ml inj SUBQ SCH ×2 (08:54→23:09)
--- NOTE | 2017-05-18 11:27 | General Progress Note ---
Assessment/Plan Problem List: (1) Hyponatremia ICD Codes: E87.1 - Hypo-osmolality and hyponatremia SNOMED: 91465374 (2) Rash and other nonspecific skin eruption ICD Codes: R21 - Rash and other nonspecific skin eruption SNOMED: 353223932 (3) Open wnd foot-complicated ICD Codes: S91.309A - Unspecified open wound, unspecified foot, initial encounter SNOMED: 215694288 (4) UTI (urinary tract infection) ICD Codes: N39.0 - Urinary tract infection, site not specified SNOMED: 04256994 (5) Anemia ICD Codes: D64.9 - Anemia, unspecified SNOMED: 839832547 (6) Cellulitis of left foot ICD Codes: L03.116 - Cellulitis of left lower limb SNOMED: 095989200 (7) Cellulitis ICD Codes: L03.90 - Cellulitis, unspecified SNOMED: 401002779 (8) Sepsis ICD Codes: A41.9 - Sepsis, unspecified organism SNOMED: 29019904 (9) COPD (chronic obstructive pulmonary disease) ICD Codes: J44.9 - Chronic obstructive pulmonary disease, unspecified SNOMED: 50857559 (10) Anxiety ICD Codes: F41.9 - Anxiety disorder, unspecified SNOMED: 10864295 (11) Psychiatric disorder ICD Codes: F99 - Mental disorder, not otherwise specified SNOMED: 98116985, 280398859 Status: stable, progressing, tolerating diet Assessment/Plan ot pt diet wound care abc cbc bmp am psyc transfer if clear Subjective Constitutional: Reports: weakness Allergies: Coded Allergies: TRIFLUOPERAZINE (Verified Allergy, Unknown, 02/15/16) TRIHEXYPHENIDYL (Verified Allergy, Unknown, 02/15/16) Uncoded Allergies: SIMAZINE (Allergy, Unknown, 05/15/17) All Systems: reviewed and negative except above Subjective sl confused Objective Last 24 Hour Vital Signs Date Time Temp Pulse Resp B/P (MAP) Pulse Ox O2 Delivery O2 Flow Rate FiO2 05/18/17 08:33 98 18 Room Air 21 05/18/17 00:16 97.6 71 18 130/61 96 Room Air 05/17/17 20:27 97.6 93 18 133/79 98 Room Air 05/17/17 20:16 97 16 Room Air 21 05/17/17 12:00 97.5 96 18 115/69 98 Room Air Height (Feet): 6 Height (Inches): 0.00 Weight (Pounds): 240 General Appearance: lethargic, confused EENT: normal ENT inspection Neck: normal alignment Cardiovascular: normal peripheral pulses, normal rate, regular rhythm Respiratory/Chest: chest wall non-tender, lungs clear, normal breath sounds Abdomen: normal bowel sounds, non tender, soft Extremities: normal inspection Edema: 1+ Arm (L), 1+ Arm (R), 1+ Leg (L), 1+ Leg (R), 1+ Pedal (L), 1+ Pedal ( R), 1+ Generalized Neurologic: motor weakness Skin: normal pigmentation, warm/dry ALCIDES VILLANUEVA May 18, 2017 11:27
[2017-05-18 12:11] LABS: BASOPHILS % (AUTO) 1.8 % (0.0-2.0); EOSINOPHILS % (AUTO) 3.4 % (0.0-3.0); LYMPHOCYTES % (AUTO) 15.9 % (20.0-45.0); MEAN CORPUSCULAR HEMOGLOBIN 26.8 PG (27.0-31.0); MEAN CORPUSCULAR HGB CONC 31.1 G/DL (32.0-36.0); MEAN CORPUSCULAR VOLUME 86 FL (80-99); MEAN PLATELET VOLUME 7.6 FL (6.5-10.1); NEUTROPHILS % (AUTO) 65.8 % (45.0-75.0); PLATELET COUNT 384 K/UL (150-450); RED BLOOD COUNT 4.38 M/UL (4.70-6.10); RED CELL DISTRIBUTION WIDTH 13.9 % (11.6-14.8); WHITE BLOOD COUNT 12.7 K/UL (4.8-10.8)
[2017-05-18 12:35] VITALS: BP 108/69
[2017-05-18 12:47] LABS: ANION GAP 7 mmol/L (5-15); CALCIUM 8.3 MG/DL (8.5-10.1); CARBON DIOXIDE 24 MMOL/L (21-32); CHLORIDE 103 MMOL/L (98-107); GLOMERULAR FILTRATION RATE > 60 mL/min (>60); POTASSIUM 4.2 MMOL/L (3.5-5.1); SODIUM 134 MMOL/L (136-145)
[2017-05-18 16:00] VITALS: BP 128/72
[2017-05-18 20:00] VITALS: BP 125/76
--- NOTE | 2017-05-18 23:55 | Infectious Diseases Prog Note ---
Assessment/Plan Problems: (1) Sepsis Assessment & Plan: Due to skin and soft tissue infection. WBC better. (2) Cellulitis of left foot Assessment & Plan: Continue with cefepime. Change vancomycin to linezolid until patient more compliant. Has history of Pseudomonas. Follow-up wound culture. (3) Non-compliance Assessment & Plan: Refusing lab work. Subjective Allergies: Coded Allergies: TRIFLUOPERAZINE (Verified Allergy, Unknown, 02/15/16) TRIHEXYPHENIDYL (Verified Allergy, Unknown, 02/15/16) Uncoded Allergies: SIMAZINE (Allergy, Unknown, 05/15/17) Objective Vital Signs Last 24 Hour Vital Signs Date Time Temp Pulse Resp B/P (MAP) Pulse Ox O2 Delivery O2 Flow Rate FiO2 05/18/17 16:00 97.3 96 18 128/72 99 Room Air 05/18/17 12:35 97.4 89 20 108/69 100 Room Air 05/18/17 08:33 98 18 Room Air 21 05/18/17 00:16 97.6 71 18 130/61 96 Room Air Height (Feet): 6 Height (Inches): 0.00 Weight (Pounds): 240 Laboratory Tests Test 05/18/17 11:50 White Blood Count 12.7 K/UL (4.8-10.8) H Red Blood Count 4.38 M/UL (4.70-6.10) L Hemoglobin 11.7 G/DL (14.2-18.0) L Hematocrit 37.7 % (42.0-52.0) L Mean Corpuscular Volume 86 FL (80-99) Mean Corpuscular Hemoglobin 26.8 PG (27.0-31.0) L Mean Corpuscular Hemoglobin Concent 31.1 G/DL (32.0-36.0) L Red Cell Distribution Width 13.9 % (11.6-14.8) Platelet Count 384 K/UL (150-450) Mean Platelet Volume 7.6 FL (6.5-10.1) Neutrophils (%) (Auto) 65.8 % (45.0-75.0) Lymphocytes (%) (Auto) 15.9 % (20.0-45.0) L Monocytes (%) (Auto) 13.0 % (1.0-10.0) H Eosinophils (%) (Auto) 3.4 % (0.0-3.0) H Basophils (%) (Auto) 1.8 % (0.0-2.0) Sodium Level 134 MMOL/L (136-145) L Potassium Level 4.2 MMOL/L (3.5-5.1) Chloride Level 103 MMOL/L (98-107) Carbon Dioxide Level 24 MMOL/L (21-32) Anion Gap 7 mmol/L (5-15) Blood Urea Nitrogen 14 mg/dL (7-18) Creatinine 1.0 MG/DL (0.55-1.30) Estimat Glomerular Filtration Rate > 60 mL/min (>60) Glucose Level 92 MG/DL (74-106) Calcium Level 8.3 MG/DL (8.5-10.1) L Prealbumin Pending Current Medications Medications (Trade) Dose Ordered Sig/Maureen Route PRN Reason Start Time Stop Time Status Last Admin Dose Admin Acetaminophen (Tylenol) 650 mg Q4H PRN ORAL fever 05/15/17 22:45 06/14/17 22:44 Albuterol/ Ipratropium (DuoNeb 0.5-3(2.5)mg/3ml) 3 ml Q4H PRN HHN Shortness of Breath 05/15/17 22:45 05/20/17 22:44 Aspirin (Ecotrin) 81 mg DAILY ORAL 05/16/17 09:00 06/15/17 08:59 05/18/17 08:53 Bupropion HCl (Wellbutrin) 75 mg DAILY ORAL 05/19/17 09:00 06/18/17 08:59 UNV Cefepime HCl 2 gm/ Dextrose 110 ml @ 220 mls/hr Q12H IV 05/16/17 00:00 05/23/17 00:00 05/18/17 23:38 Clonidine HCl (Catapres) 0.1 mg Q8H PRN ORAL SBP > 160 mmHg 05/15/17 22:45 06/14/17 22:44 Dextrose (Dextrose 50%) STAT PRN IV Hypoglycemia 05/15/17 22:45 06/14/17 22:44 Divalproex Sodium (Depakote ER) 500 mg BEDTIME ORAL 05/19/17 21:00 06/15/17 08:59 Gabapentin (Neurontin) 300 mg THREE TIMES A DAY ORAL 05/16/17 09:00 06/15/17 08:59 05/18/17 17:47 Heparin Sodium (Porcine) (Heparin 5000 units/ml) 5,000 units EVERY 12 HOURS SUBQ 05/16/17 09:00 06/15/17 08:59 05/18/17 23:09 Insulin Aspart (NovoLOG) BEFORE MEALS AND HS SUBQ 05/16/17 06:30 06/15/17 06:29 Linezolid 300 ml @ 300 mls/hr Q12HR IVPB 05/17/17 21:00 05/24/17 20:59 05/18/17 21:43 Lorazepam (Ativan) 1 mg Q4H PRN ORAL For Anxiety 05/15/17 22:45 05/22/17 22:44 Morphine Sulfate (Morphine Sulfate) 2 mg Q4H PRN IVP Moderate Pain (Pain Scale 4-6) 05/15/17 22:45 05/22/17 22:44 Nitroglycerin (Ntg) 0.4 mg Q5M PRN SL Prn Chest Pain 05/15/17 22:45 06/14/17 22:44 Ondansetron HCl (Zofran) 4 mg Q6H PRN IVP Nausea & Vomiting 05/15/17 22:45 06/14/17 22:44 Polyethylene Glycol (Miralax) 17 gm DAILYPRN PRN ORAL Constipation 05/15/17 22:45 06/14/17 22:44 Risperidone (RisperDAL) 4 mg BEDTIME ORAL 05/19/17 21:00 06/15/17 08:59 Temazepam (Restoril) 15 mg HSPRN PRN ORAL Insomnia 05/15/17 22:45 05/22/17 22:44 SHELBY DAVILA May 18, 2017 23:55
[2017-05-19] VITALS: BP 132/79
[2017-05-19] MEDS: NovoLOG Insulin Flexpen SUBQ SCH ×4 (06:30→21:00)
[2017-05-19] MEDS: Aspirin EC 81mg tab ORAL SCH (08:17)
[2017-05-19] MEDS: Linezolid 600mg/300ml (Pre-Mix) IVPB SCH ×2 (08:18→21:31)
[2017-05-19] MEDS: Heparin 5000 units/ml inj SUBQ SCH ×2 (08:19→22:01)
--- NOTE | 2017-05-19 08:48 | Pulmonology Progress Note ---
Assessment/Plan Assessment/Plan ASSESSMENT Left foot cellulitis hx of osteo Non pressure ulcer of left ankle to level of muscle Non pressure ulcer of left foot to level of muscle Non pressure ulcer of right ankle to level of muscle HTN DM COPD noncompliance anemia hypoalbuminemia possible protein calorie malnutrition PLAN OF CARE MS floor abx blood cx preliminary negative, get wound cx ID follows fup with cx O2 HHN prn CXR negative Venous Duplex BLE negative foot X ray no acute injury, + severe OP BS management with SS of insulin BP management Pain management continue ASA DVT prophylaxis declined wound nurse eval podiatry seen and examined, patient still did not allow full examination per benefits consulting analyst patient will benefit from debridement- but declined wound care check prealbumin dietary eval patient is declining care psych eval re competency dc plan to SNF with abx as per ID recommendations - per pMD case discussed and evaluated by supervising physician Subjective Allergies: Coded Allergies: TRIFLUOPERAZINE (Verified Allergy, Unknown, 02/15/16) TRIHEXYPHENIDYL (Verified Allergy, Unknown, 02/15/16) Uncoded Allergies: SIMAZINE (Allergy, Unknown, 05/15/17) Subjective leuk trending down afebrile declined wound care nurse examination benefits consulting analyst seen and examined, patient is declining wound care Objective Last 24 Hour Vital Signs Date Time Temp Pulse Resp B/P (MAP) Pulse Ox O2 Delivery O2 Flow Rate FiO2 05/19/17 08:03 94 16 Room Air 21 05/19/17 00:00 97.9 99 18 132/79 97 Room Air 05/18/17 20:00 98.1 85 18 125/76 96 Room Air 05/18/17 16:00 97.3 96 18 128/72 99 Room Air 05/18/17 12:35 97.4 89 20 108/69 100 Room Air Objective General Appearance: no acute distress, AA male disheveled, looking older than his biological age HEENT: normocephalic, atraumatic, anicteric Respiratory/Chest: lungs clear - with moderate air entry , no respiratory distress, no accessory muscle use Cardiovascular: normal rate, regular rhythm, no JVD Abdomen: normal bowel sounds, soft, non tender, non distended Extremities: other - L foot wound with erythema, edema, yellowish drainage Neurologic/Psychiatric: alert, responsive Laboratory Tests 05/18/17 11:50: White Blood Count 12.7H, Red Blood Count 4.38L, Hemoglobin 11.7L, Hematocrit 37.7L, Mean Corpuscular Volume 86, Mean Corpuscular Hemoglobin 26.8L, Mean Corpuscular Hemoglobin Concent 31.1L, Red Cell Distribution Width 13.9, Platelet Count 384, Mean Platelet Volume 7.6, Neutrophils (%) (Auto) 65.8, Lymphocytes (%) (Auto) 15.9L, Monocytes (%) (Auto) 13.0H, Eosinophils (%) (Auto ) 3.4H, Basophils (%) (Auto) 1.8, Sodium Level 134L, Potassium Level 4.2, Chloride Level 103, Carbon Dioxide Level 24, Anion Gap 7, Blood Urea Nitrogen 14 , Creatinine 1.0, Estimat Glomerular Filtration Rate > 60, Glucose Level 92, Calcium Level 8.3L, Prealbumin 11 Current Medications Medications (Trade) Dose Ordered Sig/Maureen Route PRN Reason Start Time Stop Time Status Last Admin Dose Admin Acetaminophen (Tylenol) 650 mg Q4H PRN ORAL fever 05/15/17 22:45 06/14/17 22:44 Albuterol/ Ipratropium (DuoNeb 0.5-3(2.5)mg/3ml) 3 ml Q4H PRN HHN Shortness of Breath 05/15/17 22:45 05/20/17 22:44 Aspirin (Ecotrin) 81 mg DAILY ORAL 05/16/17 09:00 06/15/17 08:59 05/19/17 08:17 Bupropion HCl (Wellbutrin) 75 mg DAILY ORAL 05/19/17 09:00 06/18/17 08:59 UNV Cefepime HCl 2 gm/ Dextrose 110 ml @ 220 mls/hr Q12H IV 05/16/17 00:00 05/23/17 00:00 05/18/17 23:38 Clonidine HCl (Catapres) 0.1 mg Q8H PRN ORAL SBP > 160 mmHg 05/15/17 22:45 06/14/17 22:44 Dextrose (Dextrose 50%) STAT PRN IV Hypoglycemia 05/15/17 22:45 06/14/17 22:44 Divalproex Sodium (Depakote ER) 500 mg BEDTIME ORAL 05/19/17 21:00 06/15/17 08:59 Gabapentin (Neurontin) 300 mg THREE TIMES A DAY ORAL 05/16/17 09:00 06/15/17 08:59 05/19/17 08:17 Heparin Sodium (Porcine) (Heparin 5000 units/ml) 5,000 units EVERY 12 HOURS SUBQ 05/16/17 09:00 06/15/17 08:59 05/19/17 08:19 Insulin Aspart (NovoLOG) BEFORE MEALS AND HS SUBQ 05/16/17 06:30 06/15/17 06:29 Linezolid 300 ml @ 300 mls/hr Q12HR IVPB 05/17/17 21:00 05/24/17 20:59 05/19/17 08:18 Lorazepam (Ativan) 1 mg Q4H PRN ORAL For Anxiety 05/15/17 22:45 05/22/17 22:44 Morphine Sulfate (Morphine Sulfate) 2 mg Q4H PRN IVP Moderate Pain (Pain Scale 4-6) 05/15/17 22:45 05/22/17 22:44 Nitroglycerin (Ntg) 0.4 mg Q5M PRN SL Prn Chest Pain 05/15/17 22:45 06/14/17 22:44 Ondansetron HCl (Zofran) 4 mg Q6H PRN IVP Nausea & Vomiting 05/15/17 22:45 06/14/17 22:44 Polyethylene Glycol (Miralax) 17 gm DAILYPRN PRN ORAL Constipation 05/15/17 22:45 06/14/17 22:44 Risperidone (RisperDAL) 4 mg BEDTIME ORAL 05/19/17 21:00 06/15/17 08:59 Temazepam (Restoril) 15 mg HSPRN PRN ORAL Insomnia 05/15/17 22:45 05/22/17 22:44 Bri Reza NP (Vanchtein) May 19, 2017 08:48
--- NOTE | 2017-05-19 09:46 | General Progress Note ---
Assessment/Plan Problem List: (1) Hyponatremia ICD Codes: E87.1 - Hypo-osmolality and hyponatremia SNOMED: 83192210 (2) Rash and other nonspecific skin eruption ICD Codes: R21 - Rash and other nonspecific skin eruption SNOMED: 387685668 (3) Open wnd foot-complicated ICD Codes: S91.309A - Unspecified open wound, unspecified foot, initial encounter SNOMED: 138592673 (4) UTI (urinary tract infection) ICD Codes: N39.0 - Urinary tract infection, site not specified SNOMED: 24774982 (5) Anemia ICD Codes: D64.9 - Anemia, unspecified SNOMED: 340520607 (6) Cellulitis of left foot ICD Codes: L03.116 - Cellulitis of left lower limb SNOMED: 729901106 (7) Cellulitis ICD Codes: L03.90 - Cellulitis, unspecified SNOMED: 550192981 (8) Sepsis ICD Codes: A41.9 - Sepsis, unspecified organism SNOMED: 98161178 (9) COPD (chronic obstructive pulmonary disease) ICD Codes: J44.9 - Chronic obstructive pulmonary disease, unspecified SNOMED: 30981961 (10) Anxiety ICD Codes: F41.9 - Anxiety disorder, unspecified SNOMED: 67445221 (11) Psychiatric disorder ICD Codes: F99 - Mental disorder, not otherwise specified SNOMED: 35718326, 610333862 Status: stable, progressing, tolerating diet Assessment/Plan ot pt diet wound care abc cbc bmp am psyc transfer if clear Subjective Constitutional: Reports: weakness Allergies: Coded Allergies: TRIFLUOPERAZINE (Verified Allergy, Unknown, 02/15/16) TRIHEXYPHENIDYL (Verified Allergy, Unknown, 02/15/16) Uncoded Allergies: SIMAZINE (Allergy, Unknown, 05/15/17) All Systems: reviewed and negative except above Subjective sl confused Objective Last 24 Hour Vital Signs Date Time Temp Pulse Resp B/P (MAP) Pulse Ox O2 Delivery O2 Flow Rate FiO2 05/19/17 08:03 94 16 Room Air 21 05/19/17 00:00 97.9 99 18 132/79 97 Room Air 05/18/17 20:00 98.1 85 18 125/76 96 Room Air 05/18/17 16:00 97.3 96 18 128/72 99 Room Air 05/18/17 12:35 97.4 89 20 108/69 100 Room Air Laboratory Tests 05/18/17 11:50: White Blood Count 12.7H, Red Blood Count 4.38L, Hemoglobin 11.7L, Hematocrit 37.7L, Mean Corpuscular Volume 86, Mean Corpuscular Hemoglobin 26.8L, Mean Corpuscular Hemoglobin Concent 31.1L, Red Cell Distribution Width 13.9, Platelet Count 384, Mean Platelet Volume 7.6, Neutrophils (%) (Auto) 65.8, Lymphocytes (%) (Auto) 15.9L, Monocytes (%) (Auto) 13.0H, Eosinophils (%) (Auto ) 3.4H, Basophils (%) (Auto) 1.8, Sodium Level 134L, Potassium Level 4.2, Chloride Level 103, Carbon Dioxide Level 24, Anion Gap 7, Blood Urea Nitrogen 14 , Creatinine 1.0, Estimat Glomerular Filtration Rate > 60, Glucose Level 92, Calcium Level 8.3L, Prealbumin 11 Height (Feet): 6 Height (Inches): 0.00 Weight (Pounds): 240 General Appearance: lethargic, confused EENT: normal ENT inspection Neck: normal alignment Cardiovascular: normal peripheral pulses, normal rate, regular rhythm Respiratory/Chest: chest wall non-tender, lungs clear, normal breath sounds Abdomen: normal bowel sounds, non tender, soft Extremities: normal inspection Edema: no edema noted Arm (L), no edema noted Arm (R), no edema noted Leg (L), no edema noted Leg (R), no edema noted Pedal (L), no edema noted Pedal (R), no edema noted Generalized Neurologic: responsive, motor weakness Skin: normal pigmentation, warm/dry ALCIDES VILLANUEVA May 19, 2017 09:45
--- NOTE | 2017-05-19 09:49 | Diagnostic Imaging Report ---
APPROVED REPORT CPT Code: 77631 Present Symptoms Lower Extremity Edema: Bilateral Comments: Technically difficult study due to body habitus BILATERAL: Imaging reveals a patent deep venous system bilaterally. There is no evidence of thrombus within the femoral, popliteal or tibial segments. The greater saphenous veins are also within normal limits. Doppler indicates normal spontaneous flow within these segments.
[2017-05-19 11:31] VITALS: BP 126/74
[2017-05-19] MEDS: Cefepime HCl 2 GM in D5W 110 ML IV SCH ×2 (11:32→23:19)
--- NOTE | 2017-05-19 14:00 | Consultation ---
DATE OF CONSULTATION: HISTORY OF PRESENT ILLNESS: The patient is a 56-year-old male with a history of schizoaffective disorder, who has been admitted to the hospital for medical stabilization, bilateral lower extremity cellulitis, and Psychiatry was consulted. The patient presented with depressed mood, anxiety, and paranoid ideation. The patient has not been taking his medications including Depakote and Wellbutrin. The patient suicidal and homicidal ideation, stated that he would like to resume his medications. PAST PSYCHIATRIC HISTORY: Diagnosed with schizoaffective disorder, several psychiatric hospitalizations. No suicide attempt in the past. PAST MEDICAL HISTORY: Cellulitis and hypertension. ALLERGIES: No known drug allergies. SUBSTANCE ABUSE HISTORY: No known history of illicit drug use or alcohol. MENTAL STATUS EXAMINATION: The patient is alert and oriented x3. Mood is dysphoric. Affect is constricted. Congruent with mood. Thought process is concrete. Thought content, no suicidal or homicidal ideations. No delusions. Insight and judgment is fair. ASSESSMENT: AXIS I Schizoaffective disorder. AXIS II Deferred. AXIS III Cellulitis. AXIS IV Low. AXIS V Global assessment of functioning is 50. PLAN: 1. The patient will be started on Depakote. 2. The patient will be started on Wellbutrin. 3. Continue to follow and readjust the medications. Kiran Chacko M.D. DR: VON JOB#: [id number] CC:
[2017-05-19 15:38] VITALS: BP 114/85
[2017-05-19 20:28] VITALS: BP 139/75
[2017-05-19] MEDS: Depakote ER 500mg tab ORAL SCH (22:00)
--- NOTE | 2017-05-19 23:46 | General Progress Note ---
Subjective Allergies: Coded Allergies: TRIFLUOPERAZINE (Verified Allergy, Unknown, 02/15/16) TRIHEXYPHENIDYL (Verified Allergy, Unknown, 02/15/16) Uncoded Allergies: SIMAZINE (Allergy, Unknown, 05/15/17) Objective Last 24 Hour Vital Signs Date Time Temp Pulse Resp B/P (MAP) Pulse Ox O2 Delivery O2 Flow Rate FiO2 05/19/17 20:28 97.8 80 18 139/75 97 Room Air 05/19/17 20:14 98 16 Room Air 21 05/19/17 15:38 97.5 93 19 114/85 98 Room Air 05/19/17 11:31 97.9 84 20 126/74 98 Room Air 05/19/17 08:03 94 16 Room Air 21 05/19/17 00:00 97.9 99 18 132/79 97 Room Air Intake and Output 05/19/17 05/20/17 19:00 07:00 Intake Total 610 ml 240 ml Balance 610 ml 240 ml Intake Oral 500 ml 240 ml IV Total 110 ml # Voids 3 Height (Feet): 6 Height (Inches): 0.00 Weight (Pounds): 240 Kiran Chacko M.D. May 19, 2017 23:46
[2017-05-20 00:23] VITALS: BP 144/75
[2017-05-20 04:14] VITALS: BP 140/71
[2017-05-20] MEDS: NovoLOG Insulin Flexpen SUBQ SCH ×4 (06:30→21:00)
[2017-05-20 07:48] VITALS: BP 145/79
[2017-05-20 07:58] LABS: BASOPHILS % (AUTO) 2.1 % (0.0-2.0); EOSINOPHILS % (AUTO) 4.2 % (0.0-3.0); LYMPHOCYTES % (AUTO) 22.2 % (20.0-45.0); MEAN CORPUSCULAR HEMOGLOBIN 28.9 PG (27.0-31.0); MEAN CORPUSCULAR HGB CONC 33.6 G/DL (32.0-36.0); MEAN CORPUSCULAR VOLUME 86 FL (80-99); MEAN PLATELET VOLUME 7.4 FL (6.5-10.1); MONOCYTES % (AUTO) 16.2 % (1.0-10.0); NEUTROPHILS % (AUTO) 55.3 % (45.0-75.0); PLATELET COUNT 359 K/UL (150-450); RED BLOOD COUNT 4.17 M/UL (4.70-6.10); WHITE BLOOD COUNT 11.3 K/UL (4.8-10.8)
[2017-05-20] MEDS: Heparin 5000 units/ml inj SUBQ SCH ×2 (09:00→21:26)
[2017-05-20] MEDS: Aspirin EC 81mg tab ORAL SCH (09:00)
[2017-05-20] MEDS: Linezolid 600mg/300ml (Pre-Mix) IVPB SCH ×2 (09:00→21:20)
--- NOTE | 2017-05-20 10:31 | Consultation ---
DATE OF CONSULTATION: 05/17/2017 PSYCHOTHERAPY CONSULTATION PROGRESS NOTE TREATING ATTENDING PHYSICIAN: Kike Mills D.O. HISTORY OF PRESENT ILLNESS: This patient is a 56-year-old male patient . The patient is admitted to the hospital for bilateral lower extremity cellulitis. The patient has a history of paranoid schizophrenia. The patient has been very agitated, irritable, and confused as well psychotherapeutic services. This clinician assessed the patient. The patient has been cooperative with the clinician. The patient denies any suicidal or homicidal thoughts of ideation. Denies any auditory or visual hallucinations. He has been feeling fairly irritable and depressed with current medical condition, however, at this time, the patient has been cooperative. PAST MEDICAL HISTORY: encephalopathy, diabetes, COPD, and anemia. . ALLERGIES: The patient has no known drug allergies. SUBSTANCE ABUSE HISTORY: There is no indication of alcohol use, illicit substance use, or smoking cigarettes. PSYCHIATRIC HISTORY: The patient has a history of mental illness including paranoid schizophrenia. SOCIAL HISTORY: The patient is a 56-year-old male patient from nursing Facility. Financially sustained through [employer]. MENTAL STATUS EXAMINATION: The patient is alert and oriented x3, person, place, and time. His mood is irritable. Affect is congruent. Thought process is slightly disoriented. The patient has poor attention and concentration. Poor insight, judgment, and impulse control. DIAGNOSES: AXIS I Paranoid schizophrenia. AXIS II Deferred. AXIS III Per History And Physical. PLAN: This clinician provided the patient with reality orientation and supportive psychotherapy. Encouraging the patient to participate in treatment milieu. The patient is, however, confused and disorganized in his thought process. . Continue with medication management and behavioral management. This clinician has reviewed the patient's chart and discussed the treatment with nursing staff. . Julian Maciel PsyD. DR: INDRA JOB#: [id number] CC:
--- NOTE | 2017-05-20 10:31 | Consultation ---
DATE OF CONSULTATION: 05/18/2017 CONSULTING PHYSICIAN: Des Hall D.P.M. REQUESTING PHYSICIAN: Kike Mills D.O. REASON FOR CONSULTATION: Chronic ulceration, bilateral lower extremities and the presence of diabetes mellitus. HISTORY OF PRESENT ILLNESS: The patient is a 56-year-old male, who was admitted to [facility] for cellulitis of the lower extremities. The patient is known to our service from previous admissions. He is very noncompliant, refuses medical attention as well as examination. PAST MEDICAL HISTORY: Significant for encephalopathy, diabetes, COPD, and anemia. ALLERGIES: Are charted. MEDICATIONS: Per MAR and include , Zyvox, aspirin, gabapentin, heparin for DVT prophylaxis, and cefepime. SOCIAL HISTORY: The patient resides in a [facility] facility. FAMILY HISTORY: Noncontributory. REVIEW OF SYSTEMS: The patient is uncooperative and will not respond to questioning thoroughly. PHYSICAL EXAMINATION: VITALS SIGNS: Currently temperature is 97.6, pulse of 71, respirations 18, blood pressure is 130/61, and saturating 96% on room air. EXTREMITIES: Lower extremity physical exam is limited due to noncompliance. There is localized edema noted bilaterally. Left foot ulceration is noted to be macerated and draining serous drainage. No malodor is noted. Foot wound is full thickness. There is no bone or tendon exposed. Wound is extensive as noted on photo documentation. There is a fibrotic base to it. The left leg wound is full thickness as well. No signs of acute infection noted. No bone or tendon is exposed. It is to the level of muscle. Wound appears to be desiccated and fibrotic. Right ankle wound has similar presentation and it is full thickness. No signs of acute infection, is fibrotic, seems desiccated, and it is to the level of muscle. LABORATORY AND DIAGNOSTIC DATA: White blood cell count is trending downwards to 12.7, H and H 11.7 and 35.2, and platelet count is 381,000. Potassium is 4.0, BUN 22, creatinine is 1.9, and glucose is 106. Lactic acid is 1.20. Albumin is 1.7. Blood cultures x2 showed no growth for 48 hours. Foot x-ray taken on this admission shows no acute injury, just severe osteoporosis is noted. Arterial ultrasound on previous admission on 12/03/2016 of bilateral lower extremity shows normal arterial flow to bilateral lower extremity. ASSESSMENT: 1. Sepsis. 2. Cellulitis of left lower extremity. 3. Non-pressure ulcer of the left ankle to the level of muscle. 4. Non-pressure ulcer of the left foot to the level of muscle. 5. Non-pressure ulcer of the right ankle to the level of muscle. 6. Edema. 7. Diabetes mellitus. 8. Noncompliant. 9. Anemia. PLAN: 1. The patient would not allow me to fully examine him. 2. Extensive chart review performed from this admission and previous admission. 3. Wound care recommendations will be placed to include edema control. 4. Wounds are deteriorating secondary to noncompliance. The patient would benefit from debridement of wounds, but he refuses. 5. Antibiotics per Infectious Disease. 6. Medical optimization of edema. 7. Diabetes and anemia to assist in wound healing. 8. We will follow. Thank you for the courtesy of this consultation, Dr. Mills. Des Hall D.P.M. DR: KRISTIN JOB#: [id number] CC:
--- NOTE | 2017-05-20 10:31 | Consultation ---
DATE OF CONSULTATION: 05/18/2017 HISTORY: The patient is a 56-year-old patient with bilateral lower extremity weakness. This is a male patient who was diagnosed with paranoid schizophrenia, confusion, and disorganized. He was admitted because of bilateral lower extremity cellulitis and weakness but he also has diagnosis of paranoid schizoaffective bipolar type, mood lability, agitation, irritability. SOCIAL HISTORY: He lives in [facility] and financially supported by [facility] and Medicare SUBSTANCE ABUSE HISTORY: Denies drug and alcohol use. ALLERGIES: No known drug allergies. MENTAL STATUS EXAMINATION: The patient is a 56-year-old male with psychomotor retardation. Mood is irritable and agitated. Affect is guarded and restricted. Thought process is disorganized and illogical. He did endorse intermittent suicidal ideation and homicidal ideation. He is impulsive . Insight and judgment poor. DIAGNOSES: Schizoaffective bipolar type. PLAN: Treatment with Zyprexa 20 mg daily and Tegretol 200 mg four times a day to stabilize his mood. Provide him with supportive therapy. Encourage him to interact appropriately with staff and other patient. Continued to be followed by Psychiatry throughout his hospital course. Chart reviewed and discussed with staff. Seen and assessed at the bedside. Tadeo Turner M.D. DR: RICHI JOB#: [id number] CC:
[2017-05-20] MEDS: Cefepime HCl 2 GM in D5W 110 ML IV SCH (12:00)
--- NOTE | 2017-05-20 12:11 | Cardiology Report ---
APPROVED REPORT EKG Measurement Heart [id number] Sinus tachycardia Right bundle branch block Lateral infarct, age undetermined Inferior infarct, age undetermined Abnormal ECG
--- NOTE | 2017-05-20 13:26 | General Progress Note ---
Assessment/Plan Problem List: (1) Hyponatremia ICD Codes: E87.1 - Hypo-osmolality and hyponatremia SNOMED: 41455289 (2) Rash and other nonspecific skin eruption ICD Codes: R21 - Rash and other nonspecific skin eruption SNOMED: 850380673 (3) Open wnd foot-complicated ICD Codes: S91.309A - Unspecified open wound, unspecified foot, initial encounter SNOMED: 588865298 (4) UTI (urinary tract infection) ICD Codes: N39.0 - Urinary tract infection, site not specified SNOMED: 47241300 (5) Anemia ICD Codes: D64.9 - Anemia, unspecified SNOMED: 451245511 (6) Cellulitis of left foot ICD Codes: L03.116 - Cellulitis of left lower limb SNOMED: 458487816 (7) Cellulitis ICD Codes: L03.90 - Cellulitis, unspecified SNOMED: 685584070 (8) Sepsis ICD Codes: A41.9 - Sepsis, unspecified organism SNOMED: 95300757 (9) COPD (chronic obstructive pulmonary disease) ICD Codes: J44.9 - Chronic obstructive pulmonary disease, unspecified SNOMED: 36573217 (10) Anxiety ICD Codes: F41.9 - Anxiety disorder, unspecified SNOMED: 40672420 (11) Psychiatric disorder ICD Codes: F99 - Mental disorder, not otherwise specified SNOMED: 16717118, 198183209 Status: unchanged Assessment/Plan ot pt diet wound care abc cbc bmp am psyc transfer if clear Subjective Constitutional: Reports: weakness Allergies: Coded Allergies: TRIFLUOPERAZINE (Verified Allergy, Unknown, 02/15/16) TRIHEXYPHENIDYL (Verified Allergy, Unknown, 02/15/16) Uncoded Allergies: SIMAZINE (Allergy, Unknown, 05/15/17) All Systems: reviewed and negative except above Subjective sl confused Objective Last 24 Hour Vital Signs Date Time Temp Pulse Resp B/P (MAP) Pulse Ox O2 Delivery O2 Flow Rate FiO2 05/20/17 07:48 93 19 145/79 98 Room Air 05/20/17 04:14 97.6 76 18 140/71 97 Room Air 05/20/17 00:23 97.5 70 18 144/75 99 Room Air 05/19/17 20:28 97.8 80 18 139/75 97 Room Air 05/19/17 20:14 98 16 Room Air 21 05/19/17 15:38 97.5 93 19 114/85 98 Room Air Laboratory Tests 05/20/17 06:00: White Blood Count 11.3H, Red Blood Count 4.17L, Hemoglobin 12.0L, Hematocrit 35.9L, Mean Corpuscular Volume 86, Mean Corpuscular Hemoglobin 28.9, Mean Corpuscular Hemoglobin Concent 33.6, Red Cell Distribution Width 14.0, Platelet Count 359, Mean Platelet Volume 7.4, Neutrophils (%) (Auto) 55.3, Lymphocytes (% ) (Auto) 22.2, Monocytes (%) (Auto) 16.2H, Eosinophils (%) (Auto) 4.2H, Basophils (%) (Auto) 2.1H Height (Feet): 6 Height (Inches): 0.00 Weight (Pounds): 240 General Appearance: lethargic, confused EENT: normal ENT inspection Neck: normal alignment Cardiovascular: normal peripheral pulses, normal rate, regular rhythm Respiratory/Chest: chest wall non-tender, lungs clear, normal breath sounds Abdomen: normal bowel sounds, non tender, soft Extremities: normal inspection Edema: 1+ Arm (L), 1+ Arm (R), 1+ Leg (L), 1+ Leg (R), 1+ Pedal (L), 1+ Pedal ( R), 1+ Generalized Edema: trace edema Neurologic: motor weakness Skin: normal pigmentation, warm/dry ALCIDES VILLANUEVA May 20, 2017 13:26
[2017-05-20] MEDS ORDERED: Tubing IV Secondary IV ONE (14:41)
[2017-05-20] MEDS ORDERED: NOVOLOG100 UNIT/3 SUBQ (15:07)
[2017-05-20] MEDS ORDERED: HEPARIN SO5000 UNIT2 SUBQ (15:07)
[2017-05-20] MEDS ORDERED: RISPERDAL2 MG ORAL (15:08)
[2017-05-20] MEDS ORDERED: DEXTROSE 50%-WA50 ML IV (15:11)
[2017-05-20] MEDS ORDERED: MIRALAX17 G2 ORAL (15:12)
[2017-05-20] MEDS ORDERED: ZOFRAN 4 MG4 MG/2 ML IV (15:12)
[2017-05-20] MEDS ORDERED: DUONEB 0.5-3(2.53 ML HHN (15:14)
[2017-05-20] MEDS ORDERED: MORPHINE 22 MG/1 ML IV (15:16)
[2017-05-20] MEDS ORDERED: NITROGLYCERIN0.4 MG SL (15:17)
[2017-05-20 20:00] VITALS: BP 136/77
[2017-05-20] MEDS: Depakote ER 500mg tab ORAL SCH (21:19)
--- NOTE | 2017-05-20 22:32 | Infectious Diseases Prog Note ---
Assessment/Plan Problems: (1) Sepsis Assessment & Plan: Due to skin and soft tissue infection. WBC better. (2) Cellulitis of left foot Assessment & Plan: Continue with cefepime and linezolid until patient more compliant. Has history of Pseudomonas. Follow-up wound culture noted. Plan to transition to PO antibiotics when discharged. (3) Non-compliance Assessment & Plan: Refusing lab work and vancomycin trough intermittently. Subjective Allergies: Coded Allergies: TRIFLUOPERAZINE (Verified Allergy, Unknown, 02/15/16) TRIHEXYPHENIDYL (Verified Allergy, Unknown, 02/15/16) Uncoded Allergies: SIMAZINE (Allergy, Unknown, 05/15/17) Objective Vital Signs Last 24 Hour Vital Signs Date Time Temp Pulse Resp B/P (MAP) Pulse Ox O2 Delivery O2 Flow Rate FiO2 05/20/17 21:50 98.1 05/20/17 20:00 98.1 87 20 136/77 98 Room Air 05/20/17 19:48 76 18 Room Air 21 05/20/17 07:48 93 19 145/79 98 Room Air 05/20/17 04:14 97.6 76 18 140/71 97 Room Air 05/20/17 00:23 97.5 70 18 144/75 99 Room Air Height (Feet): 6 Height (Inches): 0.00 Weight (Pounds): 240 Microbiology Date/Time Source Procedure Growth Status 05/19/17 07:00 Foot Left Gram Stain - Final Resulted 05/19/17 07:00 Foot Left Wound Culture - Preliminary NO GROWTH Resulted Laboratory Tests Test 05/20/17 06:00 White Blood Count 11.3 K/UL (4.8-10.8) H Red Blood Count 4.17 M/UL (4.70-6.10) L Hemoglobin 12.0 G/DL (14.2-18.0) L Hematocrit 35.9 % (42.0-52.0) L Mean Corpuscular Volume 86 FL (80-99) Mean Corpuscular Hemoglobin 28.9 PG (27.0-31.0) Mean Corpuscular Hemoglobin Concent 33.6 G/DL (32.0-36.0) Red Cell Distribution Width 14.0 % (11.6-14.8) Platelet Count 359 K/UL (150-450) Mean Platelet Volume 7.4 FL (6.5-10.1) Neutrophils (%) (Auto) 55.3 % (45.0-75.0) Lymphocytes (%) (Auto) 22.2 % (20.0-45.0) Monocytes (%) (Auto) 16.2 % (1.0-10.0) H Eosinophils (%) (Auto) 4.2 % (0.0-3.0) H Basophils (%) (Auto) 2.1 % (0.0-2.0) H Current Medications Medications (Trade) Dose Ordered Sig/Maureen Route PRN Reason Start Time Stop Time Status Last Admin Dose Admin Acetaminophen (Tylenol) 650 mg Q4H PRN ORAL fever 05/15/17 22:45 06/14/17 22:44 Albuterol/ Ipratropium (DuoNeb 0.5-3(2.5)mg/3ml) 3 ml Q4H PRN HHN Shortness of Breath 05/15/17 22:45 05/20/17 22:44 Aspirin (Ecotrin) 81 mg DAILY ORAL 05/16/17 09:00 06/15/17 08:59 05/19/17 08:17 Cefepime HCl 2 gm/ Dextrose 110 ml @ 220 mls/hr Q12H IV 05/16/17 00:00 05/23/17 00:00 05/19/17 23:19 Clonidine HCl (Catapres) 0.1 mg Q8H PRN ORAL SBP > 160 mmHg 05/15/17 22:45 06/14/17 22:44 Dextrose (Dextrose 50%) STAT PRN IV Hypoglycemia 05/15/17 22:45 06/14/17 22:44 Divalproex Sodium (Depakote ER) 500 mg BEDTIME ORAL 05/19/17 21:00 06/15/17 08:59 05/20/17 21:19 Gabapentin (Neurontin) 300 mg THREE TIMES A DAY ORAL 05/16/17 09:00 06/15/17 08:59 05/20/17 13:57 Heparin Sodium (Porcine) (Heparin 5000 units/ml) 5,000 units EVERY 12 HOURS SUBQ 05/16/17 09:00 06/15/17 08:59 05/20/17 21:26 Insulin Aspart (NovoLOG) BEFORE MEALS AND HS SUBQ 05/16/17 06:30 06/15/17 06:29 Linezolid 300 ml @ 300 mls/hr Q12HR IVPB 05/17/17 21:00 05/24/17 20:59 05/20/17 21:20 Lorazepam (Ativan) 1 mg Q4H PRN ORAL For Anxiety 05/15/17 22:45 05/22/17 22:44 Morphine Sulfate (Morphine Sulfate) 2 mg Q4H PRN IVP Moderate Pain (Pain Scale 4-6) 05/15/17 22:45 05/22/17 22:44 05/20/17 21:20 Nitroglycerin (Ntg) 0.4 mg Q5M PRN SL Prn Chest Pain 05/15/17 22:45 06/14/17 22:44 Ondansetron HCl (Zofran) 4 mg Q6H PRN IVP Nausea & Vomiting 05/15/17 22:45 06/14/17 22:44 Polyethylene Glycol (Miralax) 17 gm DAILYPRN PRN ORAL Constipation 05/15/17 22:45 06/14/17 22:44 Risperidone (RisperDAL) 4 mg BEDTIME ORAL 05/19/17 21:00 06/15/17 08:59 05/20/17 21:20 Temazepam (Restoril) 15 mg HSPRN PRN ORAL Insomnia 05/15/17 22:45 05/22/17 22:44 SHELBY DAVILA May 20, 2017 22:32
--- NOTE | 2017-05-20 22:44 | General Progress Note ---
Assessment/Plan Status: stable Assessment/Plan schizophrenia the pt is not meeting the criteria for hold the pt is not meeting the the criteria for iploc cleared from psych point of view anxious about meds needs reassurance Subjective Neurologic/Psychiatric: Reports: anxiety, depressed, emotional problems Allergies: Coded Allergies: TRIFLUOPERAZINE (Verified Allergy, Unknown, 02/15/16) TRIHEXYPHENIDYL (Verified Allergy, Unknown, 02/15/16) Uncoded Allergies: SIMAZINE (Allergy, Unknown, 05/15/17) Subjective the pt is not suicidal nor homicidal the pt was concerned about welbutrin being dced. educated him about med/med interaction. the pt was calm and was able to retain info Objective Last 24 Hour Vital Signs Date Time Temp Pulse Resp B/P (MAP) Pulse Ox O2 Delivery O2 Flow Rate FiO2 05/20/17 21:50 98.1 05/20/17 20:00 98.1 87 20 136/77 98 Room Air 05/20/17 19:48 76 18 Room Air 21 05/20/17 07:48 93 19 145/79 98 Room Air 05/20/17 04:14 97.6 76 18 140/71 97 Room Air 05/20/17 00:23 97.5 70 18 144/75 99 Room Air Intake and Output 05/20/17 05/21/17 19:00 07:00 Intake Total 360 ml Balance 360 ml Intake Oral 360 ml Laboratory Tests 05/20/17 06:00: White Blood Count 11.3H, Red Blood Count 4.17L, Hemoglobin 12.0L, Hematocrit 35.9L, Mean Corpuscular Volume 86, Mean Corpuscular Hemoglobin 28.9, Mean Corpuscular Hemoglobin Concent 33.6, Red Cell Distribution Width 14.0, Platelet Count 359, Mean Platelet Volume 7.4, Neutrophils (%) (Auto) 55.3, Lymphocytes (% ) (Auto) 22.2, Monocytes (%) (Auto) 16.2H, Eosinophils (%) (Auto) 4.2H, Basophils (%) (Auto) 2.1H Height (Feet): 6 Height (Inches): 0.00 Weight (Pounds): 240 General Appearance: no apparent distress, alert Neurologic: alert, oriented x 3, responsive, depressed affect Kiran Chacko M.D. May 20, 2017 22:44
--- NOTE | 2017-05-20 22:48 | Pulmonology Progress Note ---
Assessment/Plan Problems: (1) Sepsis (2) Cellulitis of left foot (3) Psychiatric disorder (4) Anxiety (5) COPD (chronic obstructive pulmonary disease) Assessment/Plan IV abx wound care sliding scale, diabetic diet all noted check electrolytes Subjective ROS Limited/Unobtainable: No Allergies: Coded Allergies: TRIFLUOPERAZINE (Verified Allergy, Unknown, 02/15/16) TRIHEXYPHENIDYL (Verified Allergy, Unknown, 02/15/16) Uncoded Allergies: SIMAZINE (Allergy, Unknown, 05/15/17) Objective Last 24 Hour Vital Signs Date Time Temp Pulse Resp B/P (MAP) Pulse Ox O2 Delivery O2 Flow Rate FiO2 05/20/17 21:50 98.1 05/20/17 20:00 98.1 87 20 136/77 98 Room Air 05/20/17 19:48 76 18 Room Air 21 05/20/17 07:48 93 19 145/79 98 Room Air 05/20/17 04:14 97.6 76 18 140/71 97 Room Air 05/20/17 00:23 97.5 70 18 144/75 99 Room Air Intake and Output 05/20/17 05/21/17 19:00 07:00 Intake Total 360 ml Balance 360 ml Intake Oral 360 ml General Appearance: WD/WN HEENT: normocephalic, anicteric Respiratory/Chest: chest wall non-tender, lungs clear Cardiovascular: normal peripheral pulses, normal rate Abdomen: normal bowel sounds, no organomegaly Genitourinary: normal external genitalia Extremities: no clubbing Neurologic/Psychiatric: no motor/sensory deficits Microbiology Date/Time Source Procedure Growth Status 05/19/17 07:00 Foot Left Gram Stain - Final Resulted 05/19/17 07:00 Foot Left Wound Culture - Preliminary NO GROWTH Resulted Laboratory Tests 05/20/17 06:00: White Blood Count 11.3H, Red Blood Count 4.17L, Hemoglobin 12.0L, Hematocrit 35.9L, Mean Corpuscular Volume 86, Mean Corpuscular Hemoglobin 28.9, Mean Corpuscular Hemoglobin Concent 33.6, Red Cell Distribution Width 14.0, Platelet Count 359, Mean Platelet Volume 7.4, Neutrophils (%) (Auto) 55.3, Lymphocytes (% ) (Auto) 22.2, Monocytes (%) (Auto) 16.2H, Eosinophils (%) (Auto) 4.2H, Basophils (%) (Auto) 2.1H Current Medications Medications (Trade) Dose Ordered Sig/Maureen Route PRN Reason Start Time Stop Time Status Last Admin Dose Admin Acetaminophen (Tylenol) 650 mg Q4H PRN ORAL fever 05/15/17 22:45 06/14/17 22:44 Aspirin (Ecotrin) 81 mg DAILY ORAL 05/16/17 09:00 06/15/17 08:59 05/19/17 08:17 Cefepime HCl 2 gm/ Dextrose 110 ml @ 220 mls/hr Q12H IV 05/16/17 00:00 05/23/17 00:00 05/19/17 23:19 Clonidine HCl (Catapres) 0.1 mg Q8H PRN ORAL SBP > 160 mmHg 05/15/17 22:45 06/14/17 22:44 Dextrose (Dextrose 50%) STAT PRN IV Hypoglycemia 05/15/17 22:45 06/14/17 22:44 Divalproex Sodium (Depakote ER) 500 mg BEDTIME ORAL 05/19/17 21:00 06/15/17 08:59 05/20/17 21:19 Gabapentin (Neurontin) 300 mg THREE TIMES A DAY ORAL 05/16/17 09:00 06/15/17 08:59 05/20/17 13:57 Heparin Sodium (Porcine) (Heparin 5000 units/ml) 5,000 units EVERY 12 HOURS SUBQ 05/16/17 09:00 06/15/17 08:59 05/20/17 21:26 Insulin Aspart (NovoLOG) BEFORE MEALS AND HS SUBQ 05/16/17 06:30 06/15/17 06:29 Linezolid 300 ml @ 300 mls/hr Q12HR IVPB 05/17/17 21:00 05/24/17 20:59 05/20/17 21:20 Lorazepam (Ativan) 1 mg Q4H PRN ORAL For Anxiety 05/15/17 22:45 05/22/17 22:44 Morphine Sulfate (Morphine Sulfate) 2 mg Q4H PRN IVP Moderate Pain (Pain Scale 4-6) 05/15/17 22:45 05/22/17 22:44 05/20/17 21:20 Nitroglycerin (Ntg) 0.4 mg Q5M PRN SL Prn Chest Pain 05/15/17 22:45 06/14/17 22:44 Ondansetron HCl (Zofran) 4 mg Q6H PRN IVP Nausea & Vomiting 05/15/17 22:45 06/14/17 22:44 Polyethylene Glycol (Miralax) 17 gm DAILYPRN PRN ORAL Constipation 05/15/17 22:45 06/14/17 22:44 Risperidone (RisperDAL) 4 mg BEDTIME ORAL 05/19/17 21:00 06/15/17 08:59 05/20/17 21:20 Temazepam (Restoril) 15 mg HSPRN PRN ORAL Insomnia 05/15/17 22:45 05/22/17 22:44 DALE EARLY May 20, 2017 22:48
[2017-05-20 23:55] VITALS: BP 124/74
[2017-05-21] MEDS: Cefepime HCl 2 GM in D5W 110 ML IV SCH ×2 (00:36→11:58)
[2017-05-21] MEDS: NovoLOG Insulin Flexpen SUBQ SCH ×3 (06:30→16:30)
[2017-05-21] MEDS: Linezolid 600mg/300ml (Pre-Mix) IVPB SCH ×2 (08:47→08:54)
[2017-05-21] MEDS: Aspirin EC 81mg tab ORAL SCH (08:48)
[2017-05-21] MEDS: Heparin 5000 units/ml inj SUBQ SCH (08:50)
--- NOTE | 2017-05-21 09:30 | Progress Note ---
DATE: 05/20/2017 NOTE: POOR AUDIO QUALITY SUBJECTIVE: The patient is a 56-year-old male patient with bilateral lower extremity cellulitis, has noted to be confused and in altered mental status paranoia. PLAN: My plan for this patient is to continue with the medication regimen to stabilize his mood and . Also, the patient does have irritability, so I am going to transfer to once he is medically cleared. He will continue to be followed throughout his hospital course. Seen and assessed at bedside. Chart reviewed and discussed with staff. Tadeo Turner M.D. DR: Joaquim JOB#: [id number] CC:
--- NOTE | 2017-05-21 14:32 | General Progress Note ---
Assessment/Plan Problem List: (1) Hyponatremia ICD Codes: E87.1 - Hypo-osmolality and hyponatremia SNOMED: 97499888 (2) Rash and other nonspecific skin eruption ICD Codes: R21 - Rash and other nonspecific skin eruption SNOMED: 292360677 (3) Open wnd foot-complicated ICD Codes: S91.309A - Unspecified open wound, unspecified foot, initial encounter SNOMED: 328387150 (4) UTI (urinary tract infection) ICD Codes: N39.0 - Urinary tract infection, site not specified SNOMED: 04467146 (5) Anemia ICD Codes: D64.9 - Anemia, unspecified SNOMED: 488751647 (6) Cellulitis of left foot ICD Codes: L03.116 - Cellulitis of left lower limb SNOMED: 463642975 (7) Cellulitis ICD Codes: L03.90 - Cellulitis, unspecified SNOMED: 050245871 (8) Sepsis ICD Codes: A41.9 - Sepsis, unspecified organism SNOMED: 20364460 (9) COPD (chronic obstructive pulmonary disease) ICD Codes: J44.9 - Chronic obstructive pulmonary disease, unspecified SNOMED: 85926456 (10) Anxiety ICD Codes: F41.9 - Anxiety disorder, unspecified SNOMED: 28024622 (11) Psychiatric disorder ICD Codes: F99 - Mental disorder, not otherwise specified SNOMED: 78218781, 302554078 Status: unchanged Assessment/Plan ot pt diet wound care abc id psyc cleared, dc to [facility] Subjective Allergies: Coded Allergies: TRIFLUOPERAZINE (Verified Allergy, Unknown, 02/15/16) TRIHEXYPHENIDYL (Verified Allergy, Unknown, 02/15/16) Uncoded Allergies: SIMAZINE (Allergy, Unknown, 05/15/17) All Systems: reviewed and negative except above Subjective sl confused Objective Last 24 Hour Vital Signs Date Time Temp Pulse Resp B/P (MAP) Pulse Ox O2 Delivery O2 Flow Rate FiO2 05/20/17 23:55 97.7 84 20 124/74 Room Air 05/20/17 21:50 98.1 05/20/17 20:00 98.1 87 20 136/77 98 Room Air 05/20/17 19:48 76 18 Room Air 21 Height (Feet): 6 Height (Inches): 0.00 Weight (Pounds): 240 General Appearance: lethargic EENT: normal ENT inspection Neck: normal alignment Cardiovascular: normal peripheral pulses, normal rate, regular rhythm Respiratory/Chest: chest wall non-tender, lungs clear, normal breath sounds Abdomen: normal bowel sounds, non tender, soft Extremities: normal inspection Edema: 1+ Arm (L), 1+ Arm (R), 1+ Leg (L), 1+ Leg (R), 1+ Pedal (L), 1+ Pedal ( R), 1+ Generalized Edema: trace edema Neurologic: motor weakness Skin: normal pigmentation, warm/dry ALCIDES VILLANUEVA May 21, 2017 14:32
[2017-05-21 16:00] VITALS: BP 129/74
--- NOTE | 2017-05-21 16:44 | Podiatric Progress Note ---
Assessment/Plan Patient Kevin Mares is a 56 year old male who was admitted on May 15, 2017 at 21:13 with Problems: Assessment/Plan 1) Sepsis 2) Cellulitis of LLE 3) Nonpressure ulcer of left ankle to level of muscle 4) Nonpressure ulcer of left foot to level of muscle 5) Nonpressure ulcer of right ankle to level of muscle 6) Edema 7) DM 8) Noncompliant 9) Anemia P/ 1) Arterial studies reviewed 2) Cont wound care 3) Abx per ID, complicated as patient refusing blood work 4) Will follow Subjective Allergies: Coded Allergies: TRIFLUOPERAZINE (Verified Allergy, Unknown, 02/15/16) TRIHEXYPHENIDYL (Verified Allergy, Unknown, 02/15/16) Uncoded Allergies: SIMAZINE (Allergy, Unknown, 05/15/17) Subjective Still refusing Objective Exam Last 24 Hour Vital Signs Date Time Temp Pulse Resp B/P (MAP) Pulse Ox O2 Delivery O2 Flow Rate FiO2 05/20/17 23:55 97.7 84 20 124/74 Room Air 05/20/17 21:50 98.1 05/20/17 20:00 98.1 87 20 136/77 98 Room Air 05/20/17 19:48 76 18 Room Air 21 Microbiology Date/Time Source Procedure Growth Status 05/15/17 20:30 Blood Blood Culture - Final NO GROWTH AFTER 5 DAYS Complete 05/15/17 22:52 Nasal Nares MRSA Culture - Final NO METHICILLIN RESISTANT STAPH AUREUS... Complete 05/19/17 07:00 Foot Left Gram Stain - Final Resulted 05/19/17 07:00 Wound Culture - Preliminary Staphylococcus Sp Coag Neg Resulted Dermatological Dermatological Narrative would not allow examination Des Hall DPM May 21, 2017 16:44
--- NOTE | 2017-05-21 16:52 | Pulmonology Progress Note ---
Assessment/Plan Problems: (1) Sepsis (2) Cellulitis of left foot (3) Psychiatric disorder (4) Anxiety (5) COPD (chronic obstructive pulmonary disease) Assessment/Plan dc planning IV abx wound care sliding scale, diabetic diet all noted check electrolytes Subjective ROS Limited/Unobtainable: No Constitutional: Reports: no symptoms HEENT: Repors: no symptoms Respiratory: Reports: no symptoms Allergies: Coded Allergies: TRIFLUOPERAZINE (Verified Allergy, Unknown, 02/15/16) TRIHEXYPHENIDYL (Verified Allergy, Unknown, 02/15/16) Uncoded Allergies: SIMAZINE (Allergy, Unknown, 05/15/17) Objective Last 24 Hour Vital Signs Date Time Temp Pulse Resp B/P (MAP) Pulse Ox O2 Delivery O2 Flow Rate FiO2 05/21/17 16:00 97.0 93 18 129/74 95 Room Air 05/20/17 23:55 97.7 84 20 124/74 Room Air 05/20/17 21:50 98.1 05/20/17 20:00 98.1 87 20 136/77 98 Room Air 05/20/17 19:48 76 18 Room Air 21 Intake and Output 05/21/17 05/22/17 19:00 07:00 Intake Total 250 ml Balance 250 ml Intake Oral 250 ml # Voids 1 General Appearance: WD/WN HEENT: normocephalic, atraumatic Respiratory/Chest: chest wall non-tender, lungs clear Cardiovascular: normal peripheral pulses, regular rhythm Abdomen: normal bowel sounds, soft, non tender Genitourinary: normal external genitalia Extremities: no clubbing Neurologic/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: 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 grossly normal, abnormal gait Microbiology Date/Time Source Procedure Growth Status 05/19/17 07:00 Foot Left Gram Stain - Final Resulted 05/19/17 07:00 Wound Culture - Preliminary Staphylococcus Sp Coag Neg Resulted Current Medications Medications (Trade) Dose Ordered Sig/Maureen Route PRN Reason Start Time Stop Time Status Last Admin Dose Admin Acetaminophen (Tylenol) 650 mg Q4H PRN ORAL fever 05/15/17 22:45 06/14/17 22:44 Aspirin (Ecotrin) 81 mg DAILY ORAL 05/16/17 09:00 06/15/17 08:59 05/21/17 08:48 Cefepime HCl 2 gm/ Dextrose 110 ml @ 220 mls/hr Q12H IV 05/16/17 00:00 05/22/17 13:00 05/21/17 00:36 Cefepime HCl 2 gm/ Sodium Chloride 110 ml @ 220 mls/hr Q12HR@0000,1200 IV 05/23/17 00:00 05/30/17 00:00 Clonidine HCl (Catapres) 0.1 mg Q8H PRN ORAL SBP > 160 mmHg 05/15/17 22:45 06/14/17 22:44 Dextrose (Dextrose 50%) STAT PRN IV Hypoglycemia 05/15/17 22:45 06/14/17 22:44 Divalproex Sodium (Depakote ER) 500 mg BEDTIME ORAL 05/19/17 21:00 06/15/17 08:59 05/20/17 21:19 Gabapentin (Neurontin) 300 mg THREE TIMES A DAY ORAL 05/16/17 09:00 06/15/17 08:59 05/21/17 08:47 Heparin Sodium (Porcine) (Heparin 5000 units/ml) 5,000 units EVERY 12 HOURS SUBQ 05/16/17 09:00 06/15/17 08:59 05/21/17 08:50 Insulin Aspart (NovoLOG) BEFORE MEALS AND HS SUBQ 05/16/17 06:30 06/15/17 06:29 Linezolid 300 ml @ 300 mls/hr Q12HR IVPB 05/17/17 21:00 05/24/17 20:59 05/20/17 21:20 Lorazepam (Ativan) 1 mg Q4H PRN ORAL For Anxiety 05/15/17 22:45 05/22/17 22:44 Morphine Sulfate (Morphine Sulfate) 2 mg Q4H PRN IVP Moderate Pain (Pain Scale 4-6) 05/15/17 22:45 05/22/17 22:44 05/20/17 21:20 Nitroglycerin (Ntg) 0.4 mg Q5M PRN SL Prn Chest Pain 05/15/17 22:45 06/14/17 22:44 Ondansetron HCl (Zofran) 4 mg Q6H PRN IVP Nausea & Vomiting 05/15/17 22:45 06/14/17 22:44 Polyethylene Glycol (Miralax) 17 gm DAILYPRN PRN ORAL Constipation 05/15/17 22:45 06/14/17 22:44 Risperidone (RisperDAL) 4 mg BEDTIME ORAL 05/19/17 21:00 06/15/17 08:59 05/20/17 21:20 Temazepam (Restoril) 15 mg HSPRN PRN ORAL Insomnia 05/15/17 22:45 05/22/17 22:44 DALE EARLY May 21, 2017 16:52
--- NOTE | 2017-05-21 17:08 | Infectious Diseases Prog Note ---
Assessment/Plan Problems: (1) Sepsis Assessment & Plan: Due to skin and soft tissue infection. WBC better. (2) Cellulitis of left foot Assessment & Plan: Follow-up wound culture noted. Transition to PO Bactrim and Augmentin for discharge. (3) Non-compliance Assessment & Plan: Refusing lab work and vancomycin trough intermittently. Subjective Allergies: Coded Allergies: TRIFLUOPERAZINE (Verified Allergy, Unknown, 02/15/16) TRIHEXYPHENIDYL (Verified Allergy, Unknown, 02/15/16) Uncoded Allergies: SIMAZINE (Allergy, Unknown, 05/15/17) Objective Vital Signs Last 24 Hour Vital Signs Date Time Temp Pulse Resp B/P (MAP) Pulse Ox O2 Delivery O2 Flow Rate FiO2 05/21/17 16:00 97.0 93 18 129/74 95 Room Air 05/20/17 23:55 97.7 84 20 124/74 Room Air 05/20/17 21:50 98.1 05/20/17 20:00 98.1 87 20 136/77 98 Room Air 05/20/17 19:48 76 18 Room Air 21 Height (Feet): 6 Height (Inches): 0.00 Weight (Pounds): 240 Microbiology Date/Time Source Procedure Growth Status 05/19/17 07:00 Foot Left Gram Stain - Final Resulted 05/19/17 07:00 Wound Culture - Preliminary Staphylococcus Sp Coag Neg Resulted Current Medications Medications (Trade) Dose Ordered Sig/Maureen Route PRN Reason Start Time Stop Time Status Last Admin Dose Admin Acetaminophen (Tylenol) 650 mg Q4H PRN ORAL fever 05/15/17 22:45 06/14/17 22:44 Aspirin (Ecotrin) 81 mg DAILY ORAL 05/16/17 09:00 06/15/17 08:59 05/21/17 08:48 Cefepime HCl 2 gm/ Dextrose 110 ml @ 220 mls/hr Q12H IV 05/16/17 00:00 05/22/17 13:00 05/21/17 00:36 Cefepime HCl 2 gm/ Sodium Chloride 110 ml @ 220 mls/hr Q12HR@0000,1200 IV 05/23/17 00:00 05/30/17 00:00 Clonidine HCl (Catapres) 0.1 mg Q8H PRN ORAL SBP > 160 mmHg 05/15/17 22:45 06/14/17 22:44 Dextrose (Dextrose 50%) STAT PRN IV Hypoglycemia 05/15/17 22:45 06/14/17 22:44 Divalproex Sodium (Depakote ER) 500 mg BEDTIME ORAL 05/19/17 21:00 06/15/17 08:59 05/20/17 21:19 Gabapentin (Neurontin) 300 mg THREE TIMES A DAY ORAL 05/16/17 09:00 06/15/17 08:59 05/21/17 08:47 Heparin Sodium (Porcine) (Heparin 5000 units/ml) 5,000 units EVERY 12 HOURS SUBQ 05/16/17 09:00 06/15/17 08:59 05/21/17 08:50 Insulin Aspart (NovoLOG) BEFORE MEALS AND HS SUBQ 05/16/17 06:30 06/15/17 06:29 Linezolid 300 ml @ 300 mls/hr Q12HR IVPB 05/17/17 21:00 05/24/17 20:59 05/20/17 21:20 Lorazepam (Ativan) 1 mg Q4H PRN ORAL For Anxiety 05/15/17 22:45 05/22/17 22:44 Morphine Sulfate (Morphine Sulfate) 2 mg Q4H PRN IVP Moderate Pain (Pain Scale 4-6) 05/15/17 22:45 05/22/17 22:44 05/20/17 21:20 Nitroglycerin (Ntg) 0.4 mg Q5M PRN SL Prn Chest Pain 05/15/17 22:45 06/14/17 22:44 Ondansetron HCl (Zofran) 4 mg Q6H PRN IVP Nausea & Vomiting 05/15/17 22:45 06/14/17 22:44 Polyethylene Glycol (Miralax) 17 gm DAILYPRN PRN ORAL Constipation 05/15/17 22:45 06/14/17 22:44 Risperidone (RisperDAL) 4 mg BEDTIME ORAL 05/19/17 21:00 06/15/17 08:59 05/20/17 21:20 Temazepam (Restoril) 15 mg HSPRN PRN ORAL Insomnia 05/15/17 22:45 05/22/17 22:44 SHELBY DAVILA May 21, 2017 17:08
[2017-05-21] MEDS ORDERED: AUGMENTIN 875-1 EAC1 ORAL ×2 (17:52→17:53)
[2017-05-21] MEDS ORDERED: BACTRIM-DS1 EA ORAL (17:54)
--- NOTE | 2017-05-22 22:56 | General Progress Note ---
Assessment/Plan Assessment/Plan schizophrenia the pt is not meeting the criteria for hold the pt is not meeting the the criteria for iploc cleared from psych point of view anxious about meds needs reassurance Subjective Date patient seen: May 21, 2017 Allergies: Coded Allergies: TRIFLUOPERAZINE (Verified Allergy, Unknown, 02/15/16) TRIHEXYPHENIDYL (Verified Allergy, Unknown, 02/15/16) Uncoded Allergies: SIMAZINE (Allergy, Unknown, 05/15/17) Subjective the pt is not suicidal nor homicidal the pt was concerned about welbutrin being dced. educated him about med/med interaction. the pt was calm and was able to retain info Objective Height (Feet): 6 Height (Inches): 0.00 Weight (Pounds): 240 Kiran Chacko M.D. May 22, 2017 22:56
[2017-05-23] MEDS ORDERED: Cefepime HCl 2 GM in NS 110 ML IV SCH ×2
--- NOTE | 2017-05-23 15:29 | Discharge Summary ---
Discharge Summary Hospital Course Date of Admission May 15, 2017 at 21:13 Date of Discharge May 21, 2017 at 19:10 Admitting Diagnosis BILATERAL LOWER EXT CELLULITIS HPI Kevin Mares is a 56 year old male who was admitted on May 15, 2017 at 21:13 for Bilateral Lower Extremities Cellulitis Procedures [id number] Discharge Discharge Disposition Patient was discharged to [facility] (04) Discharge Diagnoses: Bernadette Cuenca NP May 23, 2017 15:29
--- NOTE | 2017-05-24 03:01 | Discharge Summary 2 SIG ---
DATE OF ADMISSION: 05/15/2017 DATE OF DISCHARGE: 05/21/2017 CONSULTANTS: 1. Jimi Leos M.D. 2. Kavya Villasenor M.D. 3. Kiran Chacko M.D. 4. Tadeo Turner M.D. BRIEF HOSPITAL COURSE: The patient is a 56-year-old male from [facility], who presented to ED for increased cellulitis of the left foot. The patient had history of osteomyelitis on the foot. On evaluation at ED, blood work showed leukocytosis. He was pancultured and was started on IV cefepime and vancomycin. He was given wound care. He was seen by Dr. Hall. The patient did not allow himself to be fully examined. Wounds are the deteriorating secondary to the patient's noncompliance and would benefit from debridement of wounds, however, the patient refused. He has not been taking his medications and was refusing care. Psychiatric evaluation was done. He was assessed to have schizoaffective disorder and was started on Depakote and Wellbutrin. He was given Risperdal b.i.d. Wound culture showed growth of coagulase-negative Staph. The patient was refusing laboratory work and IV antibiotics intermittently. Antibiotic was transitioned to p.o. Bactrim and Augmentin. The [facility] was [facility]. FINAL DIAGNOSES: 1. Sepsis secondary to cellulitis of the left foot. 2. Cellulitis. 3. Schizoaffective disorder. 4. Anxiety disorder. 5. Noncompliance. 6. Hyponatremia. 7. Anemia. 8. Non-pressure ulcer of the foot to the level of muscle, present on admission. 9. Edema. 10. History of osteomyelitis. 11. Hypoalbuminemia. 12. Possible protein-calorie malnutrition. DISPOSITION: The patient was discharged back to [facility]. DISCHARGE MEDICATIONS: Refer to medication list. Kike Mills D.O. I have been assigned to dictate discharge summary on this account and I was not involved in the patient's management. Bernadette Cuenca N.P. DR: Bibi JOB#: [id number] CC: RYAN
--- NOTE | 2017-05-24 10:15 | Progress Note ---
DATE: 05/21/2017 PSYCHOTHERAPY CONSULTATION PROGRESS NOTE TREATING ATTENDING PHYSICIAN: Kike Mills D.O. HISTORY OF PRESENT ILLNESS: This patient is a 56-year-old male patient. The patient has a history of paranoid schizophrenia. The patient has been disorganized and irritable, refusing paranoid, thinks people are trying to hurt him. MENTAL STATUS EXAMINATION: The patient has poor insight and judgement. The patient is alert and oriented x3, person, place, and time. His mood is irritable. Affect is congruent. Thought process is poor. The patient has poor attention and concentration. This clinician assessed the patient to assess the patient's mental status. PLAN: Encouraging the patient to participate in treatment milieu. We will continue with medication management and behavioral management. This clinician has reviewed the patient's chart and discussed with the treatment team. Julian Maciel PsyD. DR: CAMILLA JOB#: [id number] CC:
== END 2017-05-21 19:10 | DRG 872 ==
LOC: EDBD 19:20 → EMR 19:30 → 4W 21:13 → EDBEDREQ 21:34
DX: A41.9 Sepsis, unspecified organism (principal); E11.621 Type 2 diabetes mellitus with foot ulcer; E46 Unspecified protein-calorie malnutrition; E87.1 Hypo-osmolality and hyponatremia; L03.116 Cellulitis of left lower limb; N39.0 Urinary tract infection, site not specified; L97.329 Non-pressure chronic ulcer of left ankle with unspecified severity; L97.319 Non-pressure chronic ulcer of right ankle with unspecified severity; J44.9 Chronic obstructive pulmonary disease, unspecified; F41.9 Anxiety disorder, unspecified; Z68.32 Body mass index [BMI] 32.0-32.9, adult; D64.9 Anemia, unspecified; Z91.19 Patient's noncompliance with other medical treatment and regimen; L97.529 Non-pressure chronic ulcer of other part of left foot with unspecified severity; F25.0 Schizoaffective disorder, bipolar type
CPT/HCPCS: 36415; 71010; 80048; 80053; 82550; 82553; 82962; 83605; 84134; 85025; 87040; 87070; 87081; 87205; 93005; 93970; 94664; 97802; 99285; J1815

== ENCOUNTER 2017-08-27 10:30 | Inpatient (IN) | payer MEDICARE, MEDICAID ==
[~2017-08-27] VITALS: Ht 182.9 cm; Wt 88.5 kg
[~2017-08-27 10:30] MED LIST changes: +ARTIFICIAL TEA1 EAC3 OP; +BACTRIM-DS1 EA ORAL; +DEXTROSE 50%-WA50 ML IV; +DUONEB 0.5-3(2.53 ML HHN; +MORPHINE 22 MG/1 ML IV; +NITROGLYCERIN0.4 MG SL
[2017-08-27] MEDS ORDERED: BUPROPION XL300 MG ORAL (10:45)
[2017-08-27 12:13] LABS: BILIRUBIN, URINE NEGATIVE (NEGATIVE); COLOR,URINE PALE YELLOW; GLUCOSE, URINE (UA) NEGATIVE (NEGATIVE); KETONES,URINE NEGATIVE (NEGATIVE); LEUKOCYTE ESTERASE ,URINE 1+ (NEGATIVE); NITRITE,URINE NEGATIVE (NEGATIVE); PH,URINE 7 (4.5-8.0); PROTEIN,URINE NEGATIVE (NEGATIVE); UROBILINOGEN,URINE NORMAL MG/DL (0.0-1.0)
[2017-08-27 12:15] LABS: APPEARANCE,URINE SLIGHTLY CLOUDY
[2017-08-27 12:19] VITALS: BP 111/76
[2017-08-27 14:00] VITALS: BP 104/67
--- NOTE | 2017-08-27 14:07 | Diagnostic Imaging Report ---
Indication: Chest pain Technique: One view of the chest Comparison: 05/15/2017 Findings: Lungs and pleural spaces are clear. Heart size is normal . No significant change Impression: No acute process
--- NOTE | 2017-08-27 14:16 | Emergency Room Report ---
History of Present Illness General Chief Complaint: Abnormal Labs Source: Patient, EMS Present Illness HPI Patient sent in for elevated WBC and glucose. Chronic wounds or legs, worse on R at this time. Patient denies all complaints: chest pain, fever, leg pain, cough NVD, dysuria, headache, anxiety. He has schizophrenia and therefore his history might be questionable. WBC 12.6 and glucose 124 (08/26). H/O diabetes and HTN. He was last discharged 05/21/17. These are the discharge diagnoses: 1. Sepsis secondary to cellulitis of the left foot. 2. Cellulitis. 3. Schizoaffective disorder. 4. Anxiety disorder. 5. Noncompliance. 6. Hyponatremia. 7. Anemia. 8. Non-pressure ulcer of the foot to the level of muscle, present on admission. 9. Edema. 10. History of osteomyelitis. 11. Hypoalbuminemia. 12. Possible protein-calorie malnutrition. Allergies: Coded Allergies: TRIFLUOPERAZINE (Verified Allergy, Unknown, 02/15/16) TRIHEXYPHENIDYL (Verified Allergy, Unknown, 02/15/16) Uncoded Allergies: SIMAZINE (Allergy, Unknown, 05/15/17) Patient History Past Medical History: see triage record, old chart reviewed Social History Narrative SNF Reviewed Nursing Documentation: PMH: Agreed, PSxH: Agreed Nursing Documentation-PMH Hx Cardiac Problems: Yes Hx Hypertension: Yes Hx COPD: Yes Hx Diabetes: Yes - Type 2 Hx Cancer: No Hx Gastrointestinal Problems: No Hx Neurological Problems: No Hx Peripheral Neuropathy: Yes Hx Weakness: Yes - generalized weakness Review of Systems All Other Systems: negative except mentioned in HPI - questionable veracity Physical Exam Vital Signs Date Time Temp Pulse Resp B/P (MAP) Pulse Ox O2 Delivery O2 Flow Rate FiO2 08/27/17 10:27 98.2 94 20 135/90 94 Room Air Sp02 EP Interpretation: reviewed, abnormal - interpreted as low by me General Appearance: no apparent distress, alert, other - urine smell, Chronically Ill Head: normocephalic Eyes: bilateral eye normal inspection ENT: moist mucus membranes Neck: supple Respiratory: lungs clear, normal breath sounds Cardiovascular #1: regular rate, rhythm, edema - R>>L leg Cardiovascular #2: 2+ radial (R) Gastrointestinal: normal inspection, normal bowel sounds, non tender, no mass, non-distended Genitourinary: other - scrotal decubitus Musculoskeletal: back normal, swelling - R>>L leg Neurologic: alert, oriented - OX2 Psychiatric: mood/affect normal Skin: warm/dry, other - multiple draining lesions bilat legs, now worse on R, stage 3-4 decubiti heels, calf L, toes L, calf R, gluteus Medical Decision Making Diagnostic Impression: Primary Impression: Cellulitis Qualified Codes: L03.119 - Cellulitis of unspecified part of limb Additional Impressions: UTI (urinary tract infection) Qualified Codes: N30.00 - Acute cystitis without hematuria Schizophrenia Qualified Codes: F20.9 - Schizophrenia, unspecified Diabetes Qualified Codes: E11.628 - Type 2 diabetes mellitus with other skin complications; Z79.4 - shelter (current) use of insulin ER Course Patient presents with elevated WBC and draining lesions bilateral lower legs. DDx: cellulitis, abscesses, infected decubiti, DVT amongst others. Evaluation with cultures, labs and CXR with EKG. Treatment with IV hydration and initiation of antibiotics. Clinically, the patient does not have tachycardia, however, DVT would be difficult to diagnose. Patient refuses IV and labs. Dr. Villanueva here and aware. Needs antibiotics for infection in leg. CXR without infiltrate. Admit med Dr. Villanueva. Initiate MRSA coverage with PO bactrim. Dr. Cheek here and convinced patient to get IV and labs. IV and labs done. IV antibiotics begun. Wound culture had been ordered in ED. Check with lab. Called floor to make sure wound culture done. Laboratory Tests Test 08/27/17 10:48 08/27/17 17:13 Urine Color Pale yellow Urine Appearance Slightly cloudy Urine pH 7 (4.5-8.0) Urine Specific [place] 1.005 (1.005-1.035) Urine Protein Negative (NEGATIVE) Urine Glucose (UA) Negative (NEGATIVE) Urine Ketones Negative (NEGATIVE) Urine Occult Blood Negative (NEGATIVE) Urine Nitrite Negative (NEGATIVE) Urine Bilirubin Negative (NEGATIVE) Urine Urobilinogen Normal MG/DL (0.0-1.0) Urine Leukocyte Esterase 1+ (NEGATIVE) H Urine RBC 0-2 /HPF (0 - 0) H Urine WBC 5-10 /HPF (0 - 0) H Urine Squamous Epithelial Cells Few /LPF (NONE/OCC) Urine Bacteria Few /HPF (NONE) White Blood Count 13.2 K/UL (4.8-10.8) H Red Blood Count 4.47 M/UL (4.70-6.10) L Hemoglobin 11.5 G/DL (14.2-18.0) L Hematocrit 36.4 % (42.0-52.0) L Mean Corpuscular Volume 81 FL (80-99) Mean Corpuscular Hemoglobin 25.8 PG (27.0-31.0) L Mean Corpuscular Hemoglobin Concent 31.7 G/DL (32.0-36.0) L Red Cell Distribution Width 15.4 % (11.6-14.8) H Platelet Count 441 K/UL (150-450) Mean Platelet Volume 6.8 FL (6.5-10.1) Neutrophils (%) (Auto) 65.0 % (45.0-75.0) Lymphocytes (%) (Auto) 18.8 % (20.0-45.0) L Monocytes (%) (Auto) 11.3 % (1.0-10.0) H Eosinophils (%) (Auto) 2.2 % (0.0-3.0) Basophils (%) (Auto) 2.7 % (0.0-2.0) H Prothrombin Time 10.3 SEC (9.30-11.50) Prothrombin Time INR 1.0 (0.9-1.1) PTT 46 SEC (23-33) H Sodium Level 136 MMOL/L (136-145) Potassium Level 3.9 MMOL/L (3.5-5.1) Chloride Level 101 MMOL/L (98-107) Carbon Dioxide Level 28 MMOL/L (21-32) Anion Gap 7 mmol/L (5-15) Blood Urea Nitrogen 21 mg/dL (7-18) H Creatinine 1.0 MG/DL (0.55-1.30) Estimate Glomerular Filtration Rate > 60 mL/min (>60) Glucose Level 82 MG/DL (74-106) Calcium Level 8.9 MG/DL (8.5-10.1) Total Bilirubin 0.3 MG/DL (0.2-1.0) Aspartate Amino Transferase (AST) 18 U/L (15-37) Alanine Aminotransferase (ALT) 15 U/L (12-78) Alkaline Phosphatase 72 U/L (46-116) Total Creatine Kinase 221 U/L (26-308) Troponin I 0.000 ng/mL (0.000-0.056) Total Protein 7.8 G/DL (6.4-8.2) Albumin 1.6 G/DL (3.4-5.0) L Globulin 6.2 g/dL Albumin/Globulin Ratio 0.3 (1.0-2.7) L Lipase 218 U/L (73-393) EKG Diagnostic Results ST Segments: other - patient refused EKG Rhythm Strip Diag. Results EP Interpretation: yes Rhythm: NSR, no PVC's, no ectopy Chest X-Ray Diagnostic Results Chest X-Ray Diagnostic Results : Chest X-Ray Ordered: Yes # of Views/Limited/Complete: 1 View Indication: Other EP Interpretation: Yes Interpretation: no consolidation, no effusion, no pneumothorax, no acute cardiopulmonary disease Impression: No acute disease Electronically Signed by: Vamsi Mancilla MD Last Vital Signs Date Time Temp Pulse Resp B/P (MAP) Pulse Ox O2 Delivery O2 Flow Rate FiO2 08/27/17 20:00 97.2 96 20 112/59 97 08/27/17 18:45 Room Air Status: improved Disposition: ADMITTED INPATIENT Condition: Serious Referrals: ALCIDES VILLANUEVA (PCP) Vamsi Mancilla M.D. Aug 27, 2017 14:16
[2017-08-27 16:08] VITALS: BP 125/73
[2017-08-27] MEDS ORDERED: Bactrim-DS 1 tab ORAL ONE (16:15)
--- NOTE | 2017-08-27 16:44 | Consultation ---
Consult Note Assessment/Plan Assessment/Plan 1) Cellulitis of bilateral LE 2) Nonpressure ulcer of left ankle to level of muscle 3) Nonpressure ulcer of left foot to level of muscle 4) Nonpressure ulcer of right ankle to level of muscle 5) Edema 6) DM 7) Noncompliant P/ 1) Wound cultures ordered by ED doc. Will start patient on Vanco/Zosyn. ID consult pending 2) Compressive dressings ordered. 3) Will follow [place] DPM Aug 27, 2017 16:44
[2017-08-27] MEDS ORDERED: Piperacillin/Tazobactam 3.375 GM in NS 110 ML IVPB ONE (17:00)
[2017-08-27] MEDS ORDERED: Vancomycin 1 GM in D5W 275 ML IVPB ONE (17:00)
[2017-08-27] MEDS ORDERED: Zosyn 3.375gm inj ONE (17:21)
[2017-08-27 17:44] LABS: BASOPHILS % (AUTO) 2.7 % (0.0-2.0); EOSINOPHILS % (AUTO) 2.2 % (0.0-3.0); HEMATOCRIT 36.4 % (42.0-52.0); HEMOGLOBIN 11.5 G/DL (14.2-18.0); LYMPHOCYTES % (AUTO) 18.8 % (20.0-45.0); MEAN CORPUSCULAR VOLUME 81 FL (80-99); MONOCYTES % (AUTO) 11.3 % (1.0-10.0); PLATELET COUNT 441 K/UL (150-450); RED BLOOD COUNT 4.47 M/UL (4.70-6.10); RED CELL DISTRIBUTION WIDTH 15.4 % (11.6-14.8); WHITE BLOOD COUNT 13.2 K/UL (4.8-10.8)
[2017-08-27 18:03] LABS: ANION GAP 7 mmol/L (5-15); BLOOD UREA NITROGEN 21 mg/dL (7-18); CALCIUM 8.9 MG/DL (8.5-10.1); CARBON DIOXIDE 28 MMOL/L (21-32); CHLORIDE 101 MMOL/L (98-107); POTASSIUM 3.9 MMOL/L (3.5-5.1); SODIUM 136 MMOL/L (136-145)
[2017-08-27 18:08] LABS: ALANINE AMINOTRANSFERASE 15 U/L (12-78); ALBUMIN 1.6 G/DL (3.4-5.0); ALBUMIN/GLOBULIN RATIO 0.3 (1.0-2.7); ALKALINE PHOSPHATASE 72 U/L (46-116); ASPARTATE AMINO TRANSFERASE 18 U/L (15-37); BILIRUBIN,TOTAL 0.3 MG/DL (0.2-1.0); CREATINE KINASE 221 U/L (26-308)
[2017-08-27] MEDS ORDERED: Vancomycin 1gm inj IVPB ONE (18:20)
[2017-08-27 19:11] VITALS: BP 79/51
[2017-08-27 20:00] VITALS: BP 112/59
[2017-08-27] MEDS ORDERED: Nitroglycerin Subl 0.4mg tab SL PRN (22:30)
[2017-08-27] MEDS ORDERED: Albuterol/Ipratropium 3ml neb HHN PRN (22:30)
[2017-08-27] MEDS ORDERED: Morphine Sulfate 2mg/ml Inj IVP PRN (22:30)
[2017-08-27] MEDS ORDERED: Miralax 17gm pkt ORAL PRN (22:30)
[2017-08-28] MEDS: NovoLOG Insulin Flexpen SUBQ SCH ×4 (06:30→21:00)
[2017-08-28] MEDS: Vancomycin 1.5gm/D5W 250ml 250 ML IVPB SCH ×3 (07:00→10:09)
[2017-08-28 08:00] VITALS: BP 110/55
[2017-08-28] MEDS: BuPROPion SR 100mg tab ORAL SCH ×2 (08:30→17:40)
[2017-08-28] MEDS: Aspirin EC 81mg tab ORAL SCH (08:30)
[2017-08-28] MEDS: Depakote 500mg tab ORAL SCH (08:30)
[2017-08-28] MEDS: Heparin 5000 units/ml inj SUBQ SCH ×3 (08:31→21:28)
[2017-08-28] MEDS ORDERED: Cefepime HCl 2 GM in NS 110 ML IV SCH (09:00)
[2017-08-28] MEDS ORDERED: Cefepime HCl 2 GM in D5W 110 ML IV SCH (09:00)
[2017-08-28] MEDS ORDERED: BuPROPion XL 300mg tab ORAL SCH (09:00)
[2017-08-28 12:00] VITALS: BP 101/44
--- NOTE | 2017-08-28 13:35 | General Progress Note ---
Assessment/Plan Problem List: (1) Cellulitis of left foot ICD Codes: L03.116 - Cellulitis of left lower limb SNOMED: 977062297 (2) Sepsis ICD Codes: A41.9 - Sepsis, unspecified organism SNOMED: 35807485 (3) Anxiety ICD Codes: F41.9 - Anxiety disorder, unspecified SNOMED: 59707070 (4) Psychiatric disorder ICD Codes: F99 - Mental disorder, not otherwise specified SNOMED: 01613126, 318810655 (5) COPD (chronic obstructive pulmonary disease) ICD Codes: J44.9 - Chronic obstructive pulmonary disease, unspecified SNOMED: 09964045 (6) Open wnd foot-complicated ICD Codes: S91.309A - Unspecified open wound, unspecified foot, initial encounter SNOMED: 907113871 (7) Diabetes ICD Codes: E11.9 - Type 2 diabetes mellitus without complications SNOMED: 08538886 Qualifiers: Qualified Codes: E11.628 - Type 2 diabetes mellitus with other skin complications; Z79.4 - [facility] (current) use of insulin (8) UTI (urinary tract infection) ICD Codes: N39.0 - Urinary tract infection, site not specified SNOMED: 62234732 Qualifiers: Qualified Codes: N30.00 - Acute cystitis without hematuria Status: stable, progressing, tolerating diet Assessment/Plan ot pt diet wound care abx cbc bmp am Subjective Constitutional: Reports: weakness Allergies: Coded Allergies: TRIFLUOPERAZINE (Verified Allergy, Unknown, 02/15/16) TRIHEXYPHENIDYL (Verified Allergy, Unknown, 02/15/16) Uncoded Allergies: SIMAZINE (Allergy, Unknown, 05/15/17) All Systems: reviewed and negative except above Subjective sleepy calm Objective Last 24 Hour Vital Signs Date Time Temp Pulse Resp B/P (MAP) Pulse Ox O2 Delivery O2 Flow Rate FiO2 08/28/17 12:00 97.7 67 20 101/44 98 08/28/17 08:50 99 18 Room Air 21 08/28/17 08:00 98.0 100 20 110/55 97 08/28/17 00:00 99 Room Air 08/27/17 20:00 97.2 96 20 112/59 97 08/27/17 20:00 97 Room Air 08/27/17 19:11 96.8 93 20 79/51 99 08/27/17 18:45 97.9 93 17 125/73 100 Room Air 08/27/17 16:08 97.9 93 17 125/73 100 Room Air 08/27/17 14:00 98.3 94 16 104/67 100 Room Air Intake and Output 08/27/17 08/28/17 19:00 07:00 Intake Total 420 ml Balance 420 ml Intake IV Total 420 ml # Voids 1 3 # Bowel Movements 2 Laboratory Tests 08/27/17 17:13: White Blood Count 13.2H, Red Blood Count 4.47L, Hemoglobin 11.5L, Hematocrit 36.4L, Mean Corpuscular Volume 81, Mean Corpuscular Hemoglobin 25.8L, Mean Corpuscular Hemoglobin Concent 31.7L, Red Cell Distribution Width 15.4H, Platelet Count 441, Mean Platelet Volume 6.8, Neutrophils (%) (Auto) 65.0, Lymphocytes (%) (Auto) 18.8L, Monocytes (%) (Auto) 11.3H, Eosinophils (%) (Auto ) 2.2, Basophils (%) (Auto) 2.7H, Prothrombin Time 10.3, Prothromb Time International Ratio 1.0, Activated Partial Thromboplast Time 46H, Sodium Level 136, Potassium Level 3.9, Chloride Level 101, Carbon Dioxide Level 28, Anion Gap 7, Blood Urea Nitrogen 21H, Creatinine 1.0, Estimat Glomerular Filtration Rate > 60, Glucose Level 82, Calcium Level 8.9, Total Bilirubin 0.3, Aspartate Amino Transf (AST/SGOT) 18, Alanine Aminotransferase (ALT/SGPT) 15, Alkaline Phosphatase 72, Total Creatine Kinase 221, Troponin I 0.000, Total Protein 7.8, Albumin 1.6L, Globulin 6.2, Albumin/Globulin Ratio 0.3L, Lipase 218 Height (Feet): 6 Height (Inches): 0.00 Weight (Pounds): 195 General Appearance: lethargic EENT: normal ENT inspection Neck: normal alignment Cardiovascular: normal peripheral pulses, normal rate, regular rhythm Respiratory/Chest: chest wall non-tender, lungs clear, normal breath sounds Abdomen: normal bowel sounds, non tender, soft Extremities: normal inspection Edema: 1+ Arm (L), 1+ Arm (R), 1+ Leg (L), 1+ Leg (R), 1+ Pedal (L), 1+ Pedal ( R), 1+ Generalized Edema: trace edema Neurologic: motor weakness Skin: normal pigmentation, warm/dry ALCIDES VILLANUEVA Aug 28, 2017 13:34
[2017-08-28] MEDS: Cephalexin 500mg cap ORAL SCH ×3 (15:08→21:27)
[2017-08-28 16:00] VITALS: BP 110/70
--- NOTE | 2017-08-28 17:43 | Consultation ---
History of Present Illness General Date patient seen: Aug 28, 2017 Chief Complaint: Abnormal Labs leg wound not healing Referring physician: Dr. Mills Reason for Consultation: Internal medicine managment leg wound sepsis COPD Present Illness HPI Patient is a 57 yo man with pmhx COPD, chronic wounds legs worse on R, schizophrenia, cellulitis the left foot anxiety disorder, noncompliance, anemia, edema, history of osteomyelitis, possible protein-calorie malnutrition [facility] from [facility] with chief complaint of worsening leg wound and abnormal laboratory value results. I was asked to assist in the internal medicine management of this patients leg wound infection. I was also asked to assist with the patients concomitant chronic obstructive disease symptoms. Allergies: Coded Allergies: TRIFLUOPERAZINE (Verified Allergy, Unknown, 02/15/16) TRIHEXYPHENIDYL (Verified Allergy, Unknown, 02/15/16) Uncoded Allergies: SIMAZINE (Allergy, Unknown, 05/15/17) Medication History Scheduled Amoxicillin/Potassium Clav 875-125* (Augmentin 875-125 Tablet*), 1 TAB ORAL Q12HR, (Reported) Amoxicillin/Potassium Clav 875-125* (Augmentin 875-125 Tablet*), 1 TAB ORAL Q12HR, (Reported) Aspirin* (Aspir 81*), 81 MG ORAL DAILY, (Reported) Bupropion Hcl* (Wellbutrin*), 100 MG ORAL BID, (Reported) Bupropion Hcl* (Wellbutrin*), 100 MG ORAL BID, (Reported) Bupropion Sr* (Wellbutrin Sr*), 100 MG ORAL TWICE A DAY, (Reported) Calcium Carbonate/Vitamin D3 (Calcium + Vitamin D Tablet), 1 EACH PO DAILY, ( Reported) Cephalexin* (Cephalexin*), 500 MG ORAL FOUR TIMES A DAY, (Reported) Ciprofloxacin* (Ciprofloxacin*), 750 MG PO BID, (Reported) Collagenase Clostridium Hist. (Santyl), 1 APPLIC TP DAILY, (Reported) Dextran 70/Hypromellose (Artificial Tears), 1 EACH OP BID, (Reported) Divalproex Sodium (Depakote), 500 MG PO DAILY, (Reported) Divalproex Sodium* (Depakote*), 250 MG PO QHS, (Reported) Docusate Sodium* (Docusate Sodium*), 100 MG ORAL TWICE A DAY, (Reported) Doxycycline Hyclate (Doxycycline Hyclate), 100 MG PO Q12HR, (Reported) Doxycycline Hyclate (Doxycycline Hyclate), 100 MG PO EVERY 12 HOURS, (Reported) Furosemide* (Lasix*), 40 MG ORAL DAILY, (Reported) Gabapentin (Gabapentin), 300 MG ORAL THREE TIMES A DAY, (Reported) Gemfibrozil (Gemfibrozil*), 600 MG ORAL BEFORE DINNER, (Reported) Gemfibrozil (Gemfibrozil*), 600 MG ORAL QHS, (Reported) Heparin Sod (Porcine) (Heparin Sodium*), 5,000 UNITS SUBQ EVERY 12 HOURS, ( Reported) Insulin Aspart* (Novolog*), 0 SUBQ AC+HS, (Reported) Lactobacillus Acidophilus (Probiotic), 1 EACH PO BID, (Reported) Linezolid* (Zyvox*), 600 MG ORAL EVERY 12 HOURS, (Reported) Losartan Potassium* (Cozaar*), 25 MG ORAL DAILY, (Reported) Metronidazole* (Flagyl*), 500 MG ORAL EVERY 8 HOURS, (Reported) Multivitamin With Minerals (Multivitamins With Minerals*), 1 TAB ORAL DAILY, ( Reported) Polyethylene Glycol 3350* (Miralax*), 17 GM ORAL HS, (Reported) Potassium Chloride (Potassium Chloride), 10 MEQ PO DAILY, (Reported) Risperidone (Risperidone), 2 MG ORAL BID, (Reported) Risperidone* (Risperdal*), 4 MG ORAL HS, (Reported) Trimethoprim/Sulfamethoxazole (Bactrim Ds Tablet), 1 TAB ORAL Q12HR, (Reported) Vit C/Ascorbate Ca/Ascorb Sod (Vitamin C 500 Mg/15 Ml Liquid), 500 MG PO DAILY, (Reported) Zinc Sulfate (Zinc Sulfate*), 220 MG ORAL DAILY, (Reported) Scheduled PRN Acetaminophen (Acetaminophen), 650 MG ORAL Q4HR PRN for Prn Headache/Temp > 101, (Reported) Clonidine Hcl (Clonidine Hcl), 0.1 MG PO Q8HR PRN for For High Blood Pressure, ( Reported) Dextrose 50 % in Water (Dextrose 50%-Water Syringe), 50 ML IV for Hypoglycemia, (Reported) Ipratropium/Albuterol Sulfate (DuoNeb 0.5-3(2.5)mg/3ml), 3 ML HHN Q4HR PRN for Shortness of Breath, (Reported) Lorazepam* (Lorazepam*), 1 MG ORAL EVERY 4 HOURS PRN for For Anxiety, (Reported) Magnesium Hydroxide* (Milk Of Magnesia*), 30 ML ORAL DAILY PRN for Constipation, (Reported) Morphine Sulfate* (Morphine Sulfate*), 2 MG IV Q4HR PRN for For Pain, (Reported) Nitroglycerin (Nitroglycerin), 0.4 MG SL [id number] PRN for CHEST PAIN, ( Reported) Ondansetron* (Zofran*), 4 MG IV Q6H PRN for Nausea & Vomiting, (Reported) Polyethylene Glycol 3350* (Miralax*), 17 GM ORAL DAILY PRN for Constipation, ( Reported) Temazepam (Temazepam*), 15 MG ORAL QHS PRN for Insomnia, (Reported) Miscellaneous Medications Dextran 70/Hypromellose/Pf (Artificial Tears Drops), 1 EACH OP, (Reported) Insulin Aspart* (Novolog*), 0 SUBQ, (Reported) Patient History Healthcare decision maker OFELIA MENCHACA, Resuscitation status Full Code Advanced Directive on File No Past Medical/Surgical History Past Medical/Surgical History: (1) Anemia (2) Hyponatremia (3) Rash and other nonspecific skin eruption (4) Non-compliance (5) Cellulitis (6) UTI (urinary tract infection) (7) COPD (chronic obstructive pulmonary disease) (8) Anxiety (9) Psychiatric disorder (10) Sepsis (11) Open wnd foot-complicated (12) Cellulitis of left foot Review of Systems Constitutional: Reports: fever, malaise, weakness Respiratory: Reports: shortness of breath, wheezing Musculoskeletal: Reports: muscle pain, muscle stiffness Skin: Reports: rash, lesions Physical Exam General Appearance: moderate distress Lines, tubes and drains: peripheral HEENT: normocephalic, atraumatic, anicteric, PERRL Neck: non-tender, normal alignment, supple, normal inspection Respiratory/Chest: chest wall non-tender, lungs clear, normal breath sounds, no respiratory distress, no accessory muscle use Breasts: no masses Cardiovascular/Chest: normal peripheral pulses, normal rate, regular rhythm, no JVD Abdomen: normal bowel sounds, non tender, no mass Genitourinary/Rectal: normal genital exam, normal rectal exam Extremities: normal range of motion, non-tender, normal inspection, no calf tenderness, non-pitting Neurologic: rn mental health II-XII grossly normal, no motor/sensory deficits Last 24 Hour Vital Signs Date Time Temp Pulse Resp B/P (MAP) Pulse Ox O2 Delivery O2 Flow Rate FiO2 08/28/17 16:00 98.1 94 20 110/70 99 08/28/17 12:00 97.7 67 20 101/44 98 08/28/17 08:50 99 18 Room Air 21 08/28/17 08:00 98.0 100 20 110/55 97 08/28/17 00:00 99 Room Air 08/27/17 20:00 97.2 96 20 112/59 97 08/27/17 20:00 97 Room Air 08/27/17 19:11 96.8 93 20 79/51 99 08/27/17 18:45 97.9 93 17 125/73 100 Room Air Intake and Output 08/27/17 08/28/17 19:00 07:00 Intake Total 420 ml Balance 420 ml Intake IV Total 420 ml # Voids 1 3 # Bowel Movements 2 Height (Feet): 6 Height (Inches): 0.00 Weight (Pounds): 195 Medications Current Medications Medications (Trade) Dose Ordered Sig/Maureen Route PRN Reason Start Time Stop Time Status Last Admin Dose Admin Acetaminophen (Tylenol) 650 mg Q4H PRN ORAL fever 08/27/17 22:30 09/26/17 22:29 Albuterol/ Ipratropium (Albuterol/ Ipratropium) 3 ml EVERY 4 HOURS PRN HHN Shortness of Breath 08/27/17 22:30 09/01/17 22:29 Aspirin (Ecotrin) 81 mg DAILY ORAL 08/28/17 09:00 09/27/17 08:59 08/28/17 08:30 Bupropion HCl (Wellbutrin SR) 100 mg BID ORAL 08/28/17 09:00 09/27/17 08:59 08/28/17 08:30 Cephalexin (Keflex) 500 mg FOUR TIMES A DAY ORAL 08/28/17 14:00 09/04/17 13:59 08/28/17 15:08 Dextrose (Dextrose 50%) STAT PRN IV Hypoglycemia 08/27/17 22:30 09/26/17 22:29 Divalproex Sodium (Depakote) 250 mg QHS ORAL 08/28/17 21:00 09/27/17 20:59 Divalproex Sodium (Depakote) 500 mg DAILY ORAL 08/28/17 09:00 09/27/17 08:59 08/28/17 08:30 Doxycycline Monohydrate (Vibramycin) 100 mg EVERY 12 HOURS ORAL 08/28/17 14:00 09/04/17 13:59 08/28/17 15:08 Gabapentin (Neurontin) 300 mg TID ORAL 08/28/17 09:00 09/27/17 08:59 08/28/17 15:08 Heparin Sodium (Porcine) (Heparin 5000 units/ml) 5,000 units EVERY 12 HOURS SUBQ 08/28/17 09:00 09/27/17 08:59 Insulin Aspart (NovoLOG) BEFORE MEALS AND HS SUBQ 08/28/17 06:30 09/27/17 06:29 Morphine Sulfate (Morphine Sulfate) 2 mg EVERY 4 HOURS PRN IVP Moderate Pain (Pain Scale 4-6) 08/27/17 22:30 09/03/17 22:29 Nitroglycerin (Ntg) 0.4 mg Every 5 Minutes PRN SL Prn Chest Pain 08/27/17 22:30 09/26/17 22:29 Ondansetron HCl (Zofran) 4 mg Q6H PRN IVP Nausea & Vomiting 08/27/17 22:30 09/26/17 22:29 Polyethylene Glycol (Miralax) 17 gm DAILYPRN PRN ORAL Constipation 08/27/17 22:30 09/26/17 22:29 Risperidone (RisperDAL) 2 mg BID ORAL 08/28/17 09:00 09/27/17 08:59 08/28/17 08:30 Temazepam (Restoril) 15 mg HSPRN PRN ORAL Insomnia 08/27/17 22:30 09/03/17 22:29 Assessment/Plan Problem List: (1) Sepsis ICD Codes: A41.9 - Sepsis, unspecified organism SNOMED: 90143044 Qualifiers: Qualified Codes: A41.9 - Sepsis, unspecified organism (2) Anxiety ICD Codes: F41.9 - Anxiety disorder, unspecified SNOMED: 52769446 (3) COPD (chronic obstructive pulmonary disease) ICD Codes: J44.9 - Chronic obstructive pulmonary disease, unspecified SNOMED: 01966407 Qualifiers: Qualified Codes: J44.1 - Chronic obstructive pulmonary disease with (acute) exacerbation (4) UTI (urinary tract infection) ICD Codes: N39.0 - Urinary tract infection, site not specified SNOMED: 06623187 Qualifiers: Qualified Codes: N30.00 - Acute cystitis without hematuria (5) Schizophrenia ICD Codes: F20.9 - Schizophrenia, unspecified SNOMED: 19324118 Qualifiers: Qualified Codes: F20.9 - Schizophrenia, unspecified (6) Diabetes ICD Codes: E11.9 - Type 2 diabetes mellitus without complications SNOMED: 06360882 Qualifiers: Qualified Codes: E11.628 - Type 2 diabetes mellitus with other skin complications; Z79.4 - [facility] (current) use of insulin (7) Cellulitis ICD Codes: L03.90 - Cellulitis, unspecified SNOMED: 090270570 Qualifiers: Qualified Codes: L03.119 - Cellulitis of unspecified part of limb Status: stable, progressing Assessment/Plan (1) Cellulitis (2) Sepsis (3) Anxiety (4) COPD (chronic obstructive pulmonary disease) (5) UTI (urinary tract infection) (6) Schizophrenia (7) Diabetes PLAN Continue abx Check cultures Symptomatic treatment Check cbc/bmp Respiratory treatment DVT prophylaxis DALE EARLY Aug 28, 2017 17:43
[2017-08-28 20:00] VITALS: BP 108/66
[2017-08-29] VITALS: BP 121/75
--- NOTE | 2017-08-29 | History and Physical Report ---
DATE OF ADMISSION: 08/27/2017 TIME: 1 p.m. ATTENDING PHYSICIAN: Kike Mills D.O. CONSULTANTS: 1. Dr. Villasenor. 2. Des Hall D.P.M. 3. Jimi Leos M.D. 4. Tadeo Turner M.D. CHIEF COMPLAINT: Abnormal laboratories, elevated WBC, and leg wound, sepsis. BRIEF HISTORY: This is a 56-year-old male from [facility], presented with the above-mentioned diagnosis. He has history of leg edema and wound and is being treated. Apparently, the labs shows elevation white count and increased swelling and wound and so the patient was sent to [facility]. Currently, calm, slightly confused in bed in the ER, no complaint otherwise. PAST MEDICAL HISTORY: COPD, psychiatric history, anemia, leg wound, and edema. PAST SURGICAL HISTORY: Right wrist and abdominal hernia. MEDICATIONS: Just IV fluids for now. ALLERGIES: Stelazine and Narcan. SOCIAL HISTORY: Positive smoking. No alcohol. No intravenous drug abuse. FAMILY HISTORY: Noncontributory. REVIEW OF SYSTEMS: No chest pain. No shortness of breath. No nausea, vomiting, or diarrhea. PHYSICAL EXAMINATION: GENERAL: Slightly anxious in bed, oriented x2, in no acute distress. VITAL SIGNS: Temperature 97 degrees, pulse 96, respirations 17, and blood pressure . CARDIOVASCULAR: No murmur. LUNGS: Poor air exchange. ABDOMEN: Bowel sound positive. Nontender and nondistended. EXTREMITIES: No cyanosis or clubbing. There is 1 to 2+ edema. Bilateral leg dressing slightly stained, slightly whitish scalene. NEUROLOGIC: The patient moves all extremities, slightly weak. LABORATORY DATA: Laboratories at this time show urinalysis, the only thing came back 1+ leukocyte esterase. Other laboratories are pending. ASSESSMENT: 1. Leg wound. 2. Sepsis. 3. Urinary tract infection. 4. Edema. 5. Leukocytosis. 6. Chronic obstructive pulmonary disease. 7. Psychiatric history. 8. Diabetes. 9. Hypertension. PLAN: Continue premedications. Wound care. Antibiotics per Infectious Disease. Blood pressure and blood sugar control. Dietary followup. Resume home medications. Psychiatric treatment. Dr. Villasenor, Dr. Hall, Dr. Leos and Dr. Tomlinson to consult. We will continue to follow this patient medically. CBC and BMP in the morning. Kike Milsl D.O. DR: RAISA JOB#: [id number] CC:
--- NOTE | 2017-08-29 03:15 | Consultation ---
DATE OF CONSULTATION: 08/27/2017 CONSULTING PHYSICIAN: Des Hall D.P.M. REQUESTING PHYSICIAN: Kike Mills D.O. REASON FOR CONSULTATION: Chronic lower extremity wounds and cellulitis. HISTORY OF PRESENT ILLNESS: The patient is well known to our service on multiple admissions. The patient states that he feels that the nursing facility is not doing exactly what is supposed to do in his wound care. He realizes that if the wound care is not performed properly, he could lose his legs. Currently, he denies any pain in the legs. PAST MEDICAL HISTORY: Significant for encephalopathy, diabetes mellitus, chronic obstructive pulmonary disease, and anemia. MEDICATIONS: Per [facility] are include 1 dose of Bactrim. ALLERGIES: Have been noted. SOCIAL HISTORY: The patient resides in a retirement facility. FAMILY HISTORY: Noncontributory. PHYSICAL EXAMINATION: VITAL SIGNS: Temperature is 98.3 degrees, pulse is 94, respirations 16, blood pressure is 104/67, saturating 100% on room air. EXTREMITIES: Lower extremity physical exam, vascular, mildly palpable pulses are noted. Nonpitting edema is noted bilaterally. There is no cyanosis noted. The lower extremities are equally warm. DERMATOLOGICAL: There are full-thickness ulcerations noted on the left ankle, left foot, and right ankle. There is serosanguineous drainage noted from the site. There is malodor noted from the left foot wound. No bone or tendon is exposed. MUSCULOSKELETAL: The patient has a 3/5 muscle strength noted in anterolateral and posterior muscle groups of bilateral lower extremities. LABORATORY AND DIAGNOSTIC DATA: The patient is refusing labs. No imaging is noted. ASSESSMENT: 1. Cellulitis of bilateral lower extremities. 2. Non-pressure ulcer of the left ankle to the level of muscle. 3. Non-pressure ulcer of the left foot to the level of muscle. 4. Non-pressure ulcer of the right ankle to the level of muscle. 5. Chronic edema. 6. Diabetes mellitus. 7. History of noncompliance. PLAN: 1. Wound cultures have been ordered. The patient will be started on vancomycin and Zosyn subsequently. Infectious Disease consult was pending. 2. Wound care orders will be placed consisting of a compression dressing bilaterally to be changed daily. 3. We will follow. Thank you for the courtesy of this consultation. Des Hall D.P.M. DR: Chelsi JOB#: [id number] CC:
[2017-08-29 06:00] VITALS: BP 125/70
[2017-08-29] MEDS: NovoLOG Insulin Flexpen SUBQ SCH ×4 (06:30→21:00)
[2017-08-29] MEDS: BuPROPion SR 100mg tab ORAL SCH ×2 (09:00→18:00)
[2017-08-29] MEDS: Aspirin EC 81mg tab ORAL SCH (09:00)
[2017-08-29] MEDS: Depakote 500mg tab ORAL SCH (09:00)
[2017-08-29] MEDS: Cephalexin 500mg cap ORAL SCH ×4 (09:00→21:00)
[2017-08-29] MEDS: Heparin 5000 units/ml inj SUBQ SCH ×2 (09:00→21:00)
--- NOTE | 2017-08-29 12:58 | Infectious Diseases Prog Note ---
Assessment/Plan Assessment/Plan A; Leg cellulitis DM Psychosis P; Patient refuses IV antibiotics as well as oral antibiotics Subjective ROS Limited/Unobtainable: Yes Allergies: Coded Allergies: TRIFLUOPERAZINE (Verified Allergy, Unknown, 02/15/16) TRIHEXYPHENIDYL (Verified Allergy, Unknown, 02/15/16) Uncoded Allergies: SIMAZINE (Allergy, Unknown, 05/15/17) Objective Vital Signs Last 24 Hour Vital Signs Date Time Temp Pulse Resp B/P (MAP) Pulse Ox O2 Delivery O2 Flow Rate FiO2 08/29/17 07:36 91 18 Room Air 21 08/29/17 06:00 98 Room Air 08/29/17 06:00 85 20 125/70 98 Room Air 08/29/17 04:00 Room Air 08/29/17 01:41 98 18 Room Air 21 08/29/17 00:00 97.0 87 20 121/75 100 Room Air 08/29/17 00:00 100 Room Air 08/28/17 20:00 97.5 83 19 108/66 99 Room Air 08/28/17 20:00 99 Room Air 08/28/17 16:00 98.1 94 20 110/70 99 Height (Feet): 6 Height (Inches): 0.00 Weight (Pounds): 195 General Appearance: no acute distress HEENT: mucous membranes moist Respiratory/Chest: lungs clear Cardiovascular: normal rate Abdomen: soft, non tender Extremities: other - edema ,of legs Skin: ulcers, other - legs Neurologic/Psychiatric: alert, responsive Microbiology Date/Time Source Procedure Growth Status 08/27/17 22:10 Other Gram Stain - Final Resulted 08/27/17 22:10 Other Wound Culture Pending Resulted Current Medications Medications (Trade) Dose Ordered Sig/Maureen Route PRN Reason Start Time Stop Time Status Last Admin Dose Admin Acetaminophen (Tylenol) 650 mg Q4H PRN ORAL fever 08/27/17 22:30 09/26/17 22:29 Albuterol/ Ipratropium (Albuterol/ Ipratropium) 3 ml EVERY 4 HOURS PRN HHN Shortness of Breath 08/27/17 22:30 09/01/17 22:29 Aspirin (Ecotrin) 81 mg DAILY ORAL 08/28/17 09:00 09/27/17 08:59 08/28/17 08:30 Bupropion HCl (Wellbutrin SR) 100 mg BID ORAL 08/28/17 09:00 09/27/17 08:59 08/28/17 17:40 Cephalexin (Keflex) 500 mg FOUR TIMES A DAY ORAL 08/28/17 14:00 09/04/17 13:59 08/28/17 21:27 Dextrose (Dextrose 50%) STAT PRN IV Hypoglycemia 08/27/17 22:30 09/26/17 22:29 Divalproex Sodium (Depakote) 250 mg QHS ORAL 08/28/17 21:00 09/27/17 20:59 08/28/17 21:27 Divalproex Sodium (Depakote) 500 mg DAILY ORAL 08/28/17 09:00 09/27/17 08:59 08/28/17 08:30 Doxycycline Monohydrate (Vibramycin) 100 mg EVERY 12 HOURS ORAL 08/28/17 14:00 09/04/17 13:59 08/28/17 21:27 Gabapentin (Neurontin) 300 mg TID ORAL 08/28/17 09:00 09/27/17 08:59 08/28/17 17:40 Heparin Sodium (Porcine) (Heparin 5000 units/ml) 5,000 units EVERY 12 HOURS SUBQ 08/28/17 09:00 09/27/17 08:59 08/28/17 21:28 Insulin Aspart (NovoLOG) BEFORE MEALS AND HS SUBQ 08/28/17 06:30 09/27/17 06:29 Morphine Sulfate (Morphine Sulfate) 2 mg EVERY 4 HOURS PRN IVP Moderate Pain (Pain Scale 4-6) 08/27/17 22:30 09/03/17 22:29 Nitroglycerin (Ntg) 0.4 mg Every 5 Minutes PRN SL Prn Chest Pain 08/27/17 22:30 09/26/17 22:29 Ondansetron HCl (Zofran) 4 mg Q6H PRN IVP Nausea & Vomiting 08/27/17 22:30 09/26/17 22:29 Polyethylene Glycol (Miralax) 17 gm DAILYPRN PRN ORAL Constipation 08/27/17 22:30 09/26/17 22:29 Risperidone (RisperDAL) 2 mg BID ORAL 08/28/17 09:00 09/27/17 08:59 08/28/17 08:30 Temazepam (Restoril) 15 mg HSPRN PRN ORAL Insomnia 08/27/17 22:30 09/03/17 22:29 MAYTE ANGUIANO Aug 29, 2017 12:58
--- NOTE | 2017-08-29 13:17 | General Progress Note ---
Assessment/Plan Problem List: (1) Cellulitis of left foot ICD Codes: L03.116 - Cellulitis of left lower limb SNOMED: 010299123 (2) Sepsis ICD Codes: A41.9 - Sepsis, unspecified organism SNOMED: 18706786 (3) Anxiety ICD Codes: F41.9 - Anxiety disorder, unspecified SNOMED: 39501946 (4) Psychiatric disorder ICD Codes: F99 - Mental disorder, not otherwise specified SNOMED: 56719194, 008899585 (5) COPD (chronic obstructive pulmonary disease) ICD Codes: J44.9 - Chronic obstructive pulmonary disease, unspecified SNOMED: 14341428 (6) Open wnd foot-complicated ICD Codes: S91.309A - Unspecified open wound, unspecified foot, initial encounter SNOMED: 202310352 (7) Diabetes ICD Codes: E11.9 - Type 2 diabetes mellitus without complications SNOMED: 19158711 Qualifiers: Qualified Codes: E11.628 - Type 2 diabetes mellitus with other skin complications; Z79.4 - detention (current) use of insulin (8) UTI (urinary tract infection) ICD Codes: N39.0 - Urinary tract infection, site not specified SNOMED: 48433253 Qualifiers: Qualified Codes: N30.00 - Acute cystitis without hematuria Status: unchanged Assessment/Plan ot pt diet wound care abx cbc bmp am ltach eval Subjective Constitutional: Reports: weakness Allergies: Coded Allergies: TRIFLUOPERAZINE (Verified Allergy, Unknown, 02/15/16) TRIHEXYPHENIDYL (Verified Allergy, Unknown, 02/15/16) Uncoded Allergies: SIMAZINE (Allergy, Unknown, 05/15/17) All Systems: reviewed and negative except above Subjective sleepy calm Objective Last 24 Hour Vital Signs Date Time Temp Pulse Resp B/P (MAP) Pulse Ox O2 Delivery O2 Flow Rate FiO2 08/29/17 07:36 91 18 Room Air 21 08/29/17 06:00 98 Room Air 08/29/17 06:00 85 20 125/70 98 Room Air 08/29/17 04:00 Room Air 08/29/17 01:41 98 18 Room Air 21 08/29/17 00:00 97.0 87 20 121/75 100 Room Air 08/29/17 00:00 100 Room Air 08/28/17 20:00 97.5 83 19 108/66 99 Room Air 08/28/17 20:00 99 Room Air 08/28/17 16:00 98.1 94 20 110/70 99 Intake and Output 08/28/17 08/29/17 19:00 07:00 Intake Total 320 ml Balance 320 ml Intake Oral 320 ml # Voids 4 # Bowel Movements 1 Height (Feet): 6 Height (Inches): 0.00 Weight (Pounds): 195 General Appearance: lethargic, confused EENT: normal ENT inspection Neck: normal alignment Cardiovascular: normal peripheral pulses, normal rate, regular rhythm Respiratory/Chest: chest wall non-tender, lungs clear, normal breath sounds Abdomen: normal bowel sounds, non tender, soft Extremities: normal inspection Edema: 1+ Arm (L), 1+ Arm (R), 1+ Leg (L), 1+ Leg (R), 1+ Pedal (L), 1+ Pedal ( R), 1+ Generalized Edema: trace edema Neurologic: motor weakness Skin: normal pigmentation, warm/dry ALCIDES VILLANUEVA Aug 29, 2017 13:17
--- NOTE | 2017-08-29 13:34 | Wound Care Consultation ---
Wound Assessment Wound Assessment #1: Wound Number: 1 Wound Present on Admission: Yes New Wound: No Status Change of Wound: No Wound Location Body Site: perineal area Wound Type: erosion - full thickness Casandra Test: Does not Casandra Wound Thickness: Full Thickness Wound Length: 2.0 Wound Width: 0.4 Wound Depth: 0.1 Percent of Wound [place]/Red: 90 Percent of Wound Bed Yellow/Wh: 10 Wound Drainage Description: Serosanguineous Wound Drainage Amount: Scant Wound Drainage Odor: None/Absent Tissue Surrounding Wound: Macerated Wound General Appearance: Reddened - yellow Wound Assessment #2: Wound Number: 2 Wound Present on Admission: Yes New Wound: No Status Change of Wound: No Wound Location Body Site Modif: left Wound Location Body Site: ischial tuberosity Wound Type: pressure ulcer Casandra Test: Does not Casandra Pressure Ulcer Stage: III - healing stage III Wound Thickness: Full Thickness Wound Length: 4.5 Wound Width: 4.5 Wound Depth: utd Percent of Wound [place]/Red: 100 Wound Drainage Amount: None Wound Drainage Odor: None/Absent Tissue Surrounding Wound: Intact Wound General Appearance: Reddened Wound Assessment #3: Wound Number: 3 Wound Present on Admission: Yes New Wound: No Status Change of Wound: No Wound Location Body Site Modif: right, posterior Wound Location Body Site: thigh Wound Type: blister - open Casandra Test: Does not Casandra Pressure Ulcer Stage: II Wound Thickness: Full Thickness Wound Length: 1.0 Wound Width: 1.0 Wound Depth: 0.2 Percent of Wound [place]/Red: 50 Percent of Wound Bed Yellow/Wh: 50 Wound Drainage Description: Serosanguineous Wound Drainage Amount: Scant Wound Drainage Odor: None/Absent Tissue Surrounding Wound: Intact Wound General Appearance: Reddened - yellow Wound Assessment #4: Wound Number: 4 Wound Present on Admission: Yes New Wound: No Status Change of Wound: No Wound Location Body Site Modif: left, right, anterior, posterior Wound Location Body Site: leg Wound Type: other Wound Thickness: Full Thickness Percent of Wound [place]/Red: 60 Percent of Wound Bed Yellow/Wh: 40 Wound Drainage Description: Serosanguineous Wound Drainage Amount: Moderate Wound Drainage Odor: None/Absent Tissue Surrounding Wound: Macerated Wound General Appearance: Reddened - yellow, Draining Wound Comment #1 Left and right lower legs and feet with scattered open wound. cellulitis on both legs. Pt is on the care of Dr Hall. Please refer to MD's notes #2 Left ischial tuberosity healing stage III pressure ulcer #3 Right posterior thigh open wound #4 Perineal area erosion with full thickness loss Recommendation -Local wound care per protocol -Keep clean and dry -Offload both heels -Heel protector on both heels -Low air loss mattress -Turn and reposition -Optimize nutrition -Assess and f/u accordingly for any changes JANELL DELONG RN Aug 29, 2017 13:34
--- NOTE | 2017-08-29 14:14 | Podiatric Progress Note ---
Assessment/Plan Patient Kevin Mares is a 56 year old male who was admitted on Aug 27, 2017 at 13:35 with Problems: Assessment/Plan A/ 1) Cellulitis of bilateral LE 2) Nonpressure ulcer of left ankle to level of muscle 3) Nonpressure ulcer of left foot to level of muscle 4) Nonpressure ulcer of right ankle to level of muscle 5) Edema 6) DM 7) Noncompliant P/ 1) ID recs noted. Patient is refusing oral and IV abx 2) D/W nursing, minan is refusing dressing changes 3) Patient advised that he is at risk for limb loss if he continues to be noncompliant with medical orders. 4) Will follow Subjective Allergies: Coded Allergies: TRIFLUOPERAZINE (Verified Allergy, Unknown, 02/15/16) TRIHEXYPHENIDYL (Verified Allergy, Unknown, 02/15/16) Uncoded Allergies: SIMAZINE (Allergy, Unknown, 05/15/17) Subjective Patient is agitated. Objective Exam Last 24 Hour Vital Signs Date Time Temp Pulse Resp B/P (MAP) Pulse Ox O2 Delivery O2 Flow Rate FiO2 08/29/17 07:36 91 18 Room Air 21 08/29/17 06:00 98 Room Air 08/29/17 06:00 85 20 125/70 98 Room Air 08/29/17 04:00 Room Air 08/29/17 01:41 98 18 Room Air 21 08/29/17 00:00 97.0 87 20 121/75 100 Room Air 08/29/17 00:00 100 Room Air 08/28/17 20:00 97.5 83 19 108/66 99 Room Air 08/28/17 20:00 99 Room Air 08/28/17 16:00 98.1 94 20 110/70 99 Microbiology Date/Time Source Procedure Growth Status 08/27/17 22:10 Other Gram Stain - Final Resulted 08/27/17 22:10 Other Wound Culture Pending Resulted Dermatological Wound Assessment : Exudate Amount: Moderate Des Hall DPM Aug 29, 2017 14:14
--- NOTE | 2017-08-29 18:31 | Pulmonology Progress Note ---
Assessment/Plan Problems: (1) Cellulitis (2) Sepsis (3) Anxiety (4) COPD (chronic obstructive pulmonary disease) (5) UTI (urinary tract infection) (6) Schizophrenia (7) Diabetes Assessment/Plan continue abx check cultures symptomatic treatment check cbc/bmp respiratory treatment dvt prophylaxis Subjective ROS Limited/Unobtainable: No Constitutional: Reports: no symptoms HEENT: Repors: no symptoms Respiratory: Reports: no symptoms Allergies: Coded Allergies: TRIFLUOPERAZINE (Verified Allergy, Unknown, 02/15/16) TRIHEXYPHENIDYL (Verified Allergy, Unknown, 02/15/16) Uncoded Allergies: SIMAZINE (Allergy, Unknown, 05/15/17) Objective Last 24 Hour Vital Signs Date Time Temp Pulse Resp B/P (MAP) Pulse Ox O2 Delivery O2 Flow Rate FiO2 08/29/17 07:36 91 18 Room Air 21 08/29/17 06:00 98 Room Air 08/29/17 06:00 85 20 125/70 98 Room Air 08/29/17 04:00 Room Air 08/29/17 01:41 98 18 Room Air 21 08/29/17 00:00 97.0 87 20 121/75 100 Room Air 08/29/17 00:00 100 Room Air 08/28/17 20:00 97.5 83 19 108/66 99 Room Air 08/28/17 20:00 99 Room Air Intake and Output 08/28/17 08/29/17 19:00 07:00 Intake Total 320 ml Balance 320 ml Intake Oral 320 ml # Voids 4 # Bowel Movements 1 Objective General Appearance: WD/WN, Lines, tubes and drains: peripheral HEENT: normocephalic, atraumatic Neck: non-tender, normal alignment Respiratory/Chest: chest wall non-tender, lungs clear Cardiovascular/Chest: normal peripheral pulses, normal rate Abdomen: normal bowel sounds Genitourinary/Rectal: normal genital exam Extremities: normal range of motion, slight edema, redness Microbiology Date/Time Source Procedure Growth Status 08/27/17 22:10 Other Gram Stain - Final Resulted 08/27/17 22:10 Other Wound Culture Pending Resulted Current Medications Medications (Trade) Dose Ordered Sig/Maureen Route PRN Reason Start Time Stop Time Status Last Admin Dose Admin Acetaminophen (Tylenol) 650 mg Q4H PRN ORAL fever 08/27/17 22:30 09/26/17 22:29 Albuterol/ Ipratropium (Albuterol/ Ipratropium) 3 ml EVERY 4 HOURS PRN HHN Shortness of Breath 08/27/17 22:30 09/01/17 22:29 Aspirin (Ecotrin) 81 mg DAILY ORAL 08/28/17 09:00 09/27/17 08:59 08/28/17 08:30 Bupropion HCl (Wellbutrin SR) 100 mg BID ORAL 08/28/17 09:00 09/27/17 08:59 08/28/17 17:40 Cephalexin (Keflex) 500 mg FOUR TIMES A DAY ORAL 08/28/17 14:00 09/04/17 13:59 08/28/17 21:27 Dextrose (Dextrose 50%) STAT PRN IV Hypoglycemia 08/27/17 22:30 09/26/17 22:29 Divalproex Sodium (Depakote) 250 mg QHS ORAL 08/28/17 21:00 09/27/17 20:59 08/28/17 21:27 Divalproex Sodium (Depakote) 500 mg DAILY ORAL 08/28/17 09:00 09/27/17 08:59 08/28/17 08:30 Doxycycline Monohydrate (Vibramycin) 100 mg EVERY 12 HOURS ORAL 08/28/17 14:00 09/04/17 13:59 08/28/17 21:27 Gabapentin (Neurontin) 300 mg TID ORAL 08/28/17 09:00 09/27/17 08:59 08/28/17 17:40 Heparin Sodium (Porcine) (Heparin 5000 units/ml) 5,000 units EVERY 12 HOURS SUBQ 08/28/17 09:00 09/27/17 08:59 08/28/17 21:28 Insulin Aspart (NovoLOG) BEFORE MEALS AND HS SUBQ 08/28/17 06:30 09/27/17 06:29 Morphine Sulfate (Morphine Sulfate) 2 mg EVERY 4 HOURS PRN IVP Moderate Pain (Pain Scale 4-6) 08/27/17 22:30 09/03/17 22:29 Nitroglycerin (Ntg) 0.4 mg Every 5 Minutes PRN SL Prn Chest Pain 08/27/17 22:30 09/26/17 22:29 Ondansetron HCl (Zofran) 4 mg Q6H PRN IVP Nausea & Vomiting 08/27/17 22:30 09/26/17 22:29 Polyethylene Glycol (Miralax) 17 gm DAILYPRN PRN ORAL Constipation 08/27/17 22:30 09/26/17 22:29 Risperidone (RisperDAL) 2 mg BID ORAL 08/28/17 09:00 09/27/17 08:59 08/28/17 08:30 Temazepam (Restoril) 15 mg HSPRN PRN ORAL Insomnia 08/27/17 22:30 09/03/17 22:29 DALE EARLY Aug 29, 2017 18:31
[2017-08-30 04:00] VITALS: BP 135/69
[2017-08-30] MEDS: NovoLOG Insulin Flexpen SUBQ SCH ×3 (06:30→16:30)
--- NOTE | 2017-08-30 07:37 | Pulmonology Progress Note ---
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 wound nurse recs implemented re left ischial tuberosity pressure ulcer POA Venous Duplex BLE DVT prophylaxis CXR negative O2 HHN prn PT/OT BS management with SS of insulin and optimize as needed pain management psych meds continue psych eval as per PMD discretion dc plan as per PMD on oral abx case discussed and evaluated by supervising physician Subjective Allergies: Coded Allergies: TRIFLUOPERAZINE (Verified Allergy, Unknown, 02/15/16) TRIHEXYPHENIDYL (Verified Allergy, Unknown, 02/15/16) Uncoded Allergies: SIMAZINE (Allergy, Unknown, 05/15/17) Subjective admits to intermittent pain RLE afebrile, still with leucocytosis on RA no signs of resp distress denies CP SOB Objective Last 24 Hour Vital Signs Date Time Temp Pulse Resp B/P (MAP) Pulse Ox O2 Delivery O2 Flow Rate FiO2 08/30/17 04:00 97.8 83 21 135/69 100 Room Air 08/29/17 19:00 88 18 Room Air 21 Intake and Output 08/29/17 08/30/17 19:00 07:00 Intake Total 360 ml 480 ml Output Total 950 ml Balance 360 ml -470 ml Intake Oral 360 ml 480 ml Output Urine Total 950 ml # Voids 2 2 # Bowel Movements 1 General Appearance: no acute distress, other - awake, alert, respsobsnive AA male HEENT: normocephalic, atraumatic, anicteric, mucous membranes moist Respiratory/Chest: lungs clear Cardiovascular: normal rate, no JVD Abdomen: normal bowel sounds, soft, non tender, non distended Skin: other - left ischial tuberosity st 3 pres ulcer, POA; shiv leg open wounds with erythema, edema, TTP Neurologic/Psychiatric: alert, responsive Musculoskeletal: normal muscle bulk Microbiology Date/Time Source Procedure Growth Status 08/27/17 22:10 Other Gram Stain - Final Resulted 08/27/17 22:10 Other Wound Culture Pending Resulted Current Medications Medications (Trade) Dose Ordered Sig/Maureen Route PRN Reason Start Time Stop Time Status Last Admin Dose Admin Acetaminophen (Tylenol) 650 mg Q4H PRN ORAL fever 08/27/17 22:30 09/26/17 22:29 Albuterol/ Ipratropium (Albuterol/ Ipratropium) 3 ml EVERY 4 HOURS PRN HHN Shortness of Breath 08/27/17 22:30 09/01/17 22:29 Aspirin (Ecotrin) 81 mg DAILY ORAL 08/28/17 09:00 09/27/17 08:59 08/28/17 08:30 Bupropion HCl (Wellbutrin SR) 100 mg BID ORAL 08/28/17 09:00 09/27/17 08:59 08/28/17 17:40 Cephalexin (Keflex) 500 mg FOUR TIMES A DAY ORAL 08/28/17 14:00 09/04/17 13:59 08/29/17 21:00 Dextrose (Dextrose 50%) STAT PRN IV Hypoglycemia 08/27/17 22:30 09/26/17 22:29 Divalproex Sodium (Depakote) 250 mg QHS ORAL 08/28/17 21:00 09/27/17 20:59 08/29/17 21:00 Divalproex Sodium (Depakote) 500 mg DAILY ORAL 08/28/17 09:00 09/27/17 08:59 08/28/17 08:30 Doxycycline Monohydrate (Vibramycin) 100 mg EVERY 12 HOURS ORAL 08/28/17 14:00 09/04/17 13:59 08/29/17 21:00 Gabapentin (Neurontin) 300 mg TID ORAL 08/28/17 09:00 09/27/17 08:59 08/28/17 17:40 Heparin Sodium (Porcine) (Heparin 5000 units/ml) 5,000 units EVERY 12 HOURS SUBQ 08/28/17 09:00 09/27/17 08:59 08/29/17 21:00 Insulin Aspart (NovoLOG) BEFORE MEALS AND HS SUBQ 08/28/17 06:30 09/27/17 06:29 Morphine Sulfate (Morphine Sulfate) 2 mg EVERY 4 HOURS PRN IVP Moderate Pain (Pain Scale 4-6) 08/27/17 22:30 09/03/17 22:29 Nitroglycerin (Ntg) 0.4 mg Every 5 Minutes PRN SL Prn Chest Pain 08/27/17 22:30 09/26/17 22:29 Ondansetron HCl (Zofran) 4 mg Q6H PRN IVP Nausea & Vomiting 08/27/17 22:30 09/26/17 22:29 Polyethylene Glycol (Miralax) 17 gm DAILYPRN PRN ORAL Constipation 08/27/17 22:30 09/26/17 22:29 Risperidone (RisperDAL) 2 mg BID ORAL 08/28/17 09:00 09/27/17 08:59 08/28/17 08:30 Temazepam (Restoril) 15 mg HSPRN PRN ORAL Insomnia 08/27/17 22:30 09/03/17 22:29 J[place] ([facility])Bri NP Aug 30, 2017 07:37
[2017-08-30] MEDS: Heparin 5000 units/ml inj SUBQ SCH (09:00)
[2017-08-30] MEDS: Aspirin EC 81mg tab ORAL SCH (09:18)
[2017-08-30] MEDS: Cephalexin 500mg cap ORAL SCH ×3 (09:19→17:16)
[2017-08-30] MEDS: Depakote 500mg tab ORAL SCH (09:19)
[2017-08-30] MEDS: BuPROPion SR 100mg tab ORAL SCH ×2 (09:19→17:16)
[2017-08-30 10:51] LABS: BASOPHILS % (AUTO) 1.7 % (0.0-2.0); EOSINOPHILS % (AUTO) 3.1 % (0.0-3.0); HEMATOCRIT 29.9 % (42.0-52.0); HEMOGLOBIN 9.9 G/DL (14.2-18.0); LYMPHOCYTES % (AUTO) 19.6 % (20.0-45.0); MEAN CORPUSCULAR VOLUME 82 FL (80-99); MONOCYTES % (AUTO) 15.1 % (1.0-10.0); NEUTROPHILS % (AUTO) 60.5 % (45.0-75.0); PLATELET COUNT 335 K/UL (150-450); RED BLOOD COUNT 3.65 M/UL (4.70-6.10); RED CELL DISTRIBUTION WIDTH 15.1 % (11.6-14.8); WHITE BLOOD COUNT 13.5 K/UL (4.8-10.8)
[2017-08-30 11:12] LABS: ANION GAP 7 mmol/L (5-15); BLOOD UREA NITROGEN 15 mg/dL (7-18); CALCIUM 8.1 MG/DL (8.5-10.1); CARBON DIOXIDE 25 MMOL/L (21-32); CHLORIDE 104 MMOL/L (98-107); CREATININE 0.9 MG/DL (0.55-1.30); SODIUM 135 MMOL/L (136-145)
--- NOTE | 2017-08-30 11:22 | General Progress Note ---
Assessment/Plan Problem List: (1) Cellulitis of left foot ICD Codes: L03.116 - Cellulitis of left lower limb SNOMED: 892821964 (2) Sepsis ICD Codes: A41.9 - Sepsis, unspecified organism SNOMED: 65583235 (3) Anxiety ICD Codes: F41.9 - Anxiety disorder, unspecified SNOMED: 10390918 (4) Psychiatric disorder ICD Codes: F99 - Mental disorder, not otherwise specified SNOMED: 88180897, 259776591 (5) COPD (chronic obstructive pulmonary disease) ICD Codes: J44.9 - Chronic obstructive pulmonary disease, unspecified SNOMED: 63864457 (6) Open wnd foot-complicated ICD Codes: S91.309A - Unspecified open wound, unspecified foot, initial encounter SNOMED: 597606476 (7) Diabetes ICD Codes: E11.9 - Type 2 diabetes mellitus without complications SNOMED: 14865621 Qualifiers: Qualified Codes: E11.628 - Type 2 diabetes mellitus with other skin complications; Z79.4 - snf (current) use of insulin (8) UTI (urinary tract infection) ICD Codes: N39.0 - Urinary tract infection, site not specified SNOMED: 09184030 Qualifiers: Qualified Codes: N30.00 - Acute cystitis without hematuria Status: unchanged Assessment/Plan ot pt diet wound care abx cbc bmp am psyc transfer Subjective Constitutional: Reports: weakness Allergies: Coded Allergies: TRIFLUOPERAZINE (Verified Allergy, Unknown, 02/15/16) TRIHEXYPHENIDYL (Verified Allergy, Unknown, 02/15/16) Uncoded Allergies: SIMAZINE (Allergy, Unknown, 05/15/17) All Systems: reviewed and negative except above Subjective sleepy calm Objective Last 24 Hour Vital Signs Date Time Temp Pulse Resp B/P (MAP) Pulse Ox O2 Delivery O2 Flow Rate FiO2 08/30/17 07:42 85 18 Room Air 21 08/30/17 04:00 97.8 83 21 135/69 100 Room Air 08/29/17 19:00 88 18 Room Air 21 Intake and Output 08/29/17 08/30/17 19:00 07:00 Intake Total 360 ml 480 ml Output Total 950 ml Balance 360 ml -470 ml Intake Oral 360 ml 480 ml Output Urine Total 950 ml # Voids 2 2 # Bowel Movements 1 Laboratory Tests 08/30/17 10:10: White Blood Count 13.5H, Red Blood Count 3.65L, Hemoglobin 9.9L, Hematocrit 29.9L, Mean Corpuscular Volume 82, Mean Corpuscular Hemoglobin 27.1, Mean Corpuscular Hemoglobin Concent 33.0, Red Cell Distribution Width 15.1H, Platelet Count 335, Mean Platelet Volume 6.7, Neutrophils (%) (Auto) 60.5, Lymphocytes (%) (Auto) 19.6L, Monocytes (%) (Auto) 15.1H, Eosinophils (%) (Auto ) 3.1H, Basophils (%) (Auto) 1.7, Sodium Level 135L, Potassium Level 4.0, Chloride Level 104, Carbon Dioxide Level 25, Anion Gap 7, Blood Urea Nitrogen 15 , Creatinine 0.9, Estimat Glomerular Filtration Rate > 60, Glucose Level 85, Calcium Level 8.1L Height (Feet): 6 Height (Inches): 0.00 Weight (Pounds): 195 General Appearance: lethargic EENT: normal ENT inspection Neck: normal alignment Cardiovascular: normal peripheral pulses, normal rate, regular rhythm Respiratory/Chest: chest wall non-tender, lungs clear, normal breath sounds Abdomen: normal bowel sounds, non tender, soft Extremities: normal inspection Edema: 1+ Arm (L), 1+ Arm (R), 1+ Leg (L), 1+ Leg (R), 1+ Pedal (L), 1+ Pedal ( R), 1+ Generalized Edema: trace edema Neurologic: motor weakness Skin: normal pigmentation, warm/dry ALCIDES VILLANUEVA Aug 30, 2017 11:22
[2017-08-30 12:15] VITALS: BP 124/91
--- NOTE | 2017-08-30 12:22 | Infectious Diseases Prog Note ---
Assessment/Plan Assessment/Plan A; Leg cellulitis DM Psychosis P; Continue Keflex & Doxycycline X days agree with discharge Subjective ROS Limited/Unobtainable: Yes Psychiatric: Reports: other - today is more complaint , took his medications Musculoskeletal: Reports: pain, other - in legs Allergies: Coded Allergies: TRIFLUOPERAZINE (Verified Allergy, Unknown, 02/15/16) TRIHEXYPHENIDYL (Verified Allergy, Unknown, 02/15/16) Uncoded Allergies: SIMAZINE (Allergy, Unknown, 05/15/17) Objective Vital Signs Last 24 Hour Vital Signs Date Time Temp Pulse Resp B/P (MAP) Pulse Ox O2 Delivery O2 Flow Rate FiO2 08/30/17 12:15 98.6 72 21 124/91 97 Room Air 08/30/17 07:42 85 18 Room Air 21 08/30/17 04:00 97.8 83 21 135/69 100 Room Air 08/29/17 19:00 88 18 Room Air 21 Height (Feet): 6 Height (Inches): 0.00 Weight (Pounds): 195 General Appearance: no acute distress HEENT: mucous membranes moist Respiratory/Chest: lungs clear Cardiovascular: normal rate Abdomen: soft, non tender Extremities: other - edema, warmness Skin: ulcers Neurologic/Psychiatric: alert, responsive Microbiology Date/Time Source Procedure Growth Status 08/27/17 22:10 Other Gram Stain - Final Resulted 08/27/17 22:10 Wound Culture - Preliminary Gram Negative Bacillus 1 Gram Negative Bacillus 2 Staphylococcus Aureus Resulted Laboratory Tests Test 08/30/17 10:10 White Blood Count 13.5 K/UL (4.8-10.8) H Red Blood Count 3.65 M/UL (4.70-6.10) L Hemoglobin 9.9 G/DL (14.2-18.0) L Hematocrit 29.9 % (42.0-52.0) L Mean Corpuscular Volume 82 FL (80-99) Mean Corpuscular Hemoglobin 27.1 PG (27.0-31.0) Mean Corpuscular Hemoglobin Concent 33.0 G/DL (32.0-36.0) Red Cell Distribution Width 15.1 % (11.6-14.8) H Platelet Count 335 K/UL (150-450) Mean Platelet Volume 6.7 FL (6.5-10.1) Neutrophils (%) (Auto) 60.5 % (45.0-75.0) Lymphocytes (%) (Auto) 19.6 % (20.0-45.0) L Monocytes (%) (Auto) 15.1 % (1.0-10.0) H Eosinophils (%) (Auto) 3.1 % (0.0-3.0) H Basophils (%) (Auto) 1.7 % (0.0-2.0) Sodium Level 135 MMOL/L (136-145) L Potassium Level 4.0 MMOL/L (3.5-5.1) Chloride Level 104 MMOL/L (98-107) Carbon Dioxide Level 25 MMOL/L (21-32) Anion Gap 7 mmol/L (5-15) Blood Urea Nitrogen 15 mg/dL (7-18) Creatinine 0.9 MG/DL (0.55-1.30) Estimat Glomerular Filtration Rate > 60 mL/min (>60) Glucose Level 85 MG/DL (74-106) Calcium Level 8.1 MG/DL (8.5-10.1) L Current Medications Medications (Trade) Dose Ordered Sig/Maureen Route PRN Reason Start Time Stop Time Status Last Admin Dose Admin Acetaminophen (Tylenol) 650 mg Q4H PRN ORAL fever 08/27/17 22:30 09/26/17 22:29 Albuterol/ Ipratropium (Albuterol/ Ipratropium) 3 ml EVERY 4 HOURS PRN HHN Shortness of Breath 08/27/17 22:30 09/01/17 22:29 Aspirin (Ecotrin) 81 mg DAILY ORAL 08/28/17 09:00 09/27/17 08:59 08/30/17 09:18 Bupropion HCl (Wellbutrin SR) 100 mg BID ORAL 08/28/17 09:00 09/27/17 08:59 08/30/17 09:19 Cephalexin (Keflex) 500 mg FOUR TIMES A DAY ORAL 08/28/17 14:00 09/04/17 13:59 08/30/17 09:19 Dextrose (Dextrose 50%) STAT PRN IV Hypoglycemia 08/27/17 22:30 09/26/17 22:29 Divalproex Sodium (Depakote) 250 mg QHS ORAL 08/28/17 21:00 09/27/17 20:59 08/29/17 21:00 Divalproex Sodium (Depakote) 500 mg DAILY ORAL 08/28/17 09:00 09/27/17 08:59 08/30/17 09:19 Doxycycline Monohydrate (Vibramycin) 100 mg EVERY 12 HOURS ORAL 08/28/17 14:00 09/04/17 13:59 08/30/17 09:19 Gabapentin (Neurontin) 300 mg TID ORAL 08/28/17 09:00 09/27/17 08:59 08/30/17 09:19 Heparin Sodium (Porcine) (Heparin 5000 units/ml) 5,000 units EVERY 12 HOURS SUBQ 08/28/17 09:00 09/27/17 08:59 08/29/17 21:00 Insulin Aspart (NovoLOG) BEFORE MEALS AND HS SUBQ 08/28/17 06:30 09/27/17 06:29 Morphine Sulfate (Morphine Sulfate) 2 mg EVERY 4 HOURS PRN IVP Moderate Pain (Pain Scale 4-6) 08/27/17 22:30 09/03/17 22:29 Nitroglycerin (Ntg) 0.4 mg Every 5 Minutes PRN SL Prn Chest Pain 08/27/17 22:30 09/26/17 22:29 Ondansetron HCl (Zofran) 4 mg Q6H PRN IVP Nausea & Vomiting 08/27/17 22:30 09/26/17 22:29 Polyethylene Glycol (Miralax) 17 gm DAILYPRN PRN ORAL Constipation 08/27/17 22:30 09/26/17 22:29 Risperidone (RisperDAL) 2 mg BID ORAL 08/28/17 09:00 09/27/17 08:59 08/30/17 09:19 Temazepam (Restoril) 15 mg HSPRN PRN ORAL Insomnia 08/27/17 22:30 09/03/17 22:29 MAYTE ANGUIANO Aug 30, 2017 12:22
--- NOTE | 2017-08-30 12:54 | Consultation ---
DATE OF CONSULTATION: 08/28/2017 INITIAL PSYCHIATRIC EVALUATION HISTORY: The patient is a 56-year-old male. The patient was admitted to [facility] secondary to cellulitis. He continues to be disorganized and has mood lability, but he also has overlying diagnosis of schizoaffective bipolar type and his mood lability is worsening secondary to the progression of his medical illnesses, that is why attending has requested daily psychiatric consultation for this patient. He is irritable and agitated and he is disorganized. As far as his psychotropic . As far as his medical problems, he has cellulitis. ALLERGIES: No known drug allergies. SOCIAL HISTORY: The patient lives in [facility]. He is financially supported by [employer] and Medicare. SUBSTANCE ABUSE HISTORY: Denies drug and alcohol use. PSYCHIATRIC HISTORY: He has a diagnosis of schizoaffective, bipolar type, multiple psychiatric admissions. FAMILY PSYCHIATRIC HISTORY: Denies. STRENGTHS: He is motivated to get better and he has a place to live. WEAKNESSES: He is impulsive and has no support system. MENTAL STATUS EXAMINATION: irritable and agitated. Affect guarded and restricted. Intellect poor. Mood depressed. Motor activity, psychomotor agitation. Attention span is poor. Orientation x2. Speech is of low volume and slurred. Insight and judgment are poor. Memory is 0/3, after 3 out of 3 word recall, so poor memory. DIAGNOSES: Schizoaffective, bipolar type. PLAN: Treat this patient with Risperdal 2 mg twice a day, Depakote 500 mg at bedtime, Wellbutrin XR 100 mg q.a.m. and q.6 p.m. Provide him with supportive therapy and encourage him to interact appropriately with staff and other patients. Chart reviewed. Discussed with staff. The patient is seen and assessed in his room. Tadeo Turner M.D. DR: ANUSHKA JOB#: [id number] CC:
--- NOTE | 2017-08-30 12:54 | Consultation ---
DATE OF CONSULTATION: 08/28/2017 INFECTIOUS DISEASES CONSULTATION CONSULTING PHYSICIAN: John Kumar M.D. PRIMARY ATTENDING PHYSICIAN: Kike Mills D.O. REASON FOR CONSULTATION: Cellulitis of lower extremities. HISTORY OF PRESENT ILLNESS: This is a 56-year-old male admitted yesterday from nursing facility because of elevated WBC, elevated glucose. WBC of 12.6 and glucose 124. Chronic wound and swelling in the legs that is worse in the right side. The patient had no complaints by himself. PAST MEDICAL HISTORY: Significant for paranoid schizophrenia. The patient has history of noncompliance with medication. He has diabetes mellitus type 2, ulcers that are chronic, COPD, hypertension. ALLERGIES: Trifluoperazine, trihexyphenidyl, . MEDICATIONS: Depakote, aspirin, Wellbutrin, gabapentin, Risperdal, heparin, cefepime, vancomycin but actually the patient refused that medications, also refused insulin, albuterol ipratropium inhaler, morphine, MiraLAX, Zofran, Restoril. SOCIAL HISTORY: [facility] resident. Smoking, six cigarettes a day. Single, has no child. PHYSICAL EXAMINATION: VITAL SIGNS: Temperature 98, pulse 99, blood pressure 110/55. GENERAL APPEARANCE: No acute distress. HEAD AND NECK: [place] conjunctivae. HEART: Regular. Tachycardic. LUNGS: Clear. ABDOMEN: Soft and nontender. EXTREMITY: Edema both extremities, have ulcers in both extremities and scrotal area. There are two ulcers in the left ankle and left foot, also has ulcer in the right ankle. LABORATORY AND DIAGNOSTIC DATA: Sodium 136, potassium 3.9, chloride 101, bicarb 28, BUN 21, creatinine 1. WBC 13.2, hemoglobin 11.5, hematocrit 36.4, platelets 441. UA showed WBCs of 5 to 10. Chest x-ray, no acute process. IMPRESSION: 1. Cellulitis of lower extremities. 2. Diabetes mellitus type 2 with ulceration of the foot, legs, and genital area. 3. Chronic obstructive pulmonary disease. 4. Hypertension. 5. Paranoid schizophrenia and noncompliance to IV medication. RECOMMENDATION: We will stop intravenous antibiotics. We will try keep the patient NPO. Keflex and doxycycline. We will follow up the laboratories. At the end of my exam, I thank Dr. Kike Mills for involving me in the care of this patient. John Kumar M.D. DR: Nazario JOB#: [id number] CC:
[2017-08-30] MEDS ORDERED: DOXYCYCLINE HY100 M2 PO (15:50)
[2017-08-30] MEDS ORDERED: CEPHALEXIN500 M1 ORAL (15:51)
[2017-08-30 16:00] VITALS: BP 119/64
--- NOTE | 2017-08-30 16:45 | Progress Note ---
DATE: 08/29/2017 SUBJECTIVE: The patient is a 56-year-old male patient with cellulitis, but he has a lot of mood lability, agitation, irritability, and confusion. That is why his attending physician has requested daily psychiatric consultation to help reduce agitation and stabilize the patient's mood. MENTAL STATUS EXAMINATION: This is a 56-year-old male with psychomotor agitation. Mood is irritable and agitated. Affect is guarded and restricted. Thought process is disorganized and illogical. Denies any current suicidal or homicidal thoughts. Thought content, auditory hallucinations with paranoid delusions. Insight and judgment are poor. DIAGNOSIS: Schizoaffective, bipolar type. PLAN: Plan is to treat him with Risperdal 2 mg twice a day, Depakote 500 mg daily and 250 mg q.p.m., and Wellbutrin XR 100 mg twice a day. Chart was reviewed and discussed with staff. Seen and assessed at the bedside. Tadeo Turner M.D. DR: YULIET JOB#: [id number] CC:
[2017-08-30 20:00] VITALS: BP 105/58
--- NOTE | 2017-09-01 23:04 | Progress Note ---
DATE: 08/30/2017 SUBJECTIVE: This is a 56-year-old male patient with cellulitis. He has altered mental status and mood lability and agitation secondary to the stress of his medical illness. So, the attending has requested daily psychiatric consultation. MENTAL STATUS EXAMINATION: This is a 56-year-old male with psychomotor agitation. Mood is irritable and agitated. Affect guarded and restricted. Thought process is disorganized and illogical. No signs of any suicidal or homicidal thoughts. Insight and judgment is poor. DIAGNOSIS: Schizoaffective, bipolar type. PLAN: Treat him with Risperdal 2 mg twice a day, Depakote 500 mg daily and 250 mg at bedtime, and Wellbutrin XR 100 mg twice a day. Provide him with supportive therapy. Seen and assessed at bedside. Supportive therapy provided for 15 to 20 minutes. Chart reviewed and discussed with staff. Tadeo Turner M.D. DR: ANUSHKA JOB#: [id number] CC:
--- NOTE | 2017-09-02 06:45 | Progress Note ---
DATE: 08/29/2017 NOTE: POOR AUDIO PSYCHOTHERAPY CONSULTATION PROGRESS NOTE TREATING ATTENDING PHYSICIAN: Kike Mills D.O. SUBJECTIVE: The patient is a 56-year-old male patient with history of schizophrenia. The patient is psychotic, withdrawn, in his room. The patient states that he has been wanting to go back to his nursing facility and states that he feels very irritable in the hospital. The patient has had intermittent thoughts of agitation with staff, however, has been has been compliant with his treatment. MENTAL STATUS EXAMINATION: This is a 56-year-old male patient. The patient . Mood is irritable. Affect is blunted. Thought process disorganized. The patient has poor attention and concentration. PLAN: This clinician assessed this patient's mental status. The patient provided with reality orientation. Provide the patient with supportive psychotherapy. Encourage the patient to articulate his needs utilizing positive communication skills. Continue with behavioral management. This clinician has reviewed the patient's chart and discussed the treatment with treatment team. Julian Maciel PsyD. : MARIJA JOB#: [id number] CC:
--- NOTE | 2017-09-02 09:02 | Discharge Summary ---
Discharge Summary Hospital Course Date of Admission Aug 27, 2017 at 13:35 Date of Discharge Aug 30, 2017 at 21:15 Admitting Diagnosis cellulitis HPI Kevin Mares is a 56 year old male who was admitted on Aug 27, 2017 at 13:35 for Cellulitis Hospital Course dc summary #[id number] Discharge Medications Continued Medications: Acetaminophen (Acetaminophen) 650 Mg/20.3 Ml Solution 650 MG ORAL Q4HR PRN for Prn Headache/Temp > 101, ML 0 Refills Aspirin* (Aspir 81*) 81 Mg Tablet.dr 81 MG ORAL DAILY, TAB Bupropion Sr* (Wellbutrin Sr*) 100 Mg Tablet.er 100 MG ORAL TWICE A DAY for 30 Days, TAB 0 Refills Cephalexin* (Cephalexin*) 500 Mg Tablet 500 MG ORAL FOUR TIMES A DAY for 7 Days, CAP Divalproex Sodium* (Depakote*) 250 Mg Tablet.dr 250 MG PO QHS, TAB Doxycycline Hyclate (Doxycycline Hyclate) 100 Mg Capsule 100 MG PO EVERY 12 HOURS for 7 Days, CAP Gabapentin (Gabapentin) 300 Mg/6 Ml Solution 300 MG ORAL THREE TIMES A DAY, ML Heparin Sod (Porcine) (Heparin Sodium*) 5 000/1 Ml Vial 5000 UNITS SUBQ EVERY 12 HOURS, VIAL Insulin Aspart* (Novolog*) 100 Unit/1 Ml Insuln.pen 0 SUBQ AC+HS, #1 EA 0 Refills Ipratropium/Albuterol Sulfate (DuoNeb 0.5-3(2.5)mg/3ml) 3 Ml Ampul.neb 3 ML HHN Q4HR PRN for Shortness of Breath, EA Nitroglycerin (Nitroglycerin) 0.4 Mg Tab.subl 0.4 MG SL [id number] PRN for CHEST PAIN, TAB Ondansetron* (Zofran*) 4 Mg/2 Ml Vial 4 MG IV Q6H PRN for Nausea & Vomiting, VIAL Polyethylene Glycol 3350* (Miralax*) 17 Gm Powd.pack 17 GM ORAL HS, PACKET Risperidone (Risperidone) 2 Mg Tablet 2 MG ORAL BID, TAB 0 Refills Temazepam (Temazepam*) 15 Mg Capsule 15 MG ORAL QHS PRN for Insomnia, #30 CAP 0 Refills Discharge Condition Upon Discharge: stable Discharge Disposition Patient was discharged to SNF/Subacute Facility(03) Discharge Diagnoses: Discharge Instructions Discharge Instructions Special Instructions I have been assigned to complete a D/C Summary on this account. I was not involved in the patient management Bri Reza NP (Vanchtein) Sep 02, 2017 09:02
--- NOTE | 2017-09-03 09:00 | Discharge Summary 2 SIG ---
DATE OF ADMISSION: 08/27/2017 DATE OF DISCHARGE: 08/30/2017 REASON FOR ADMISSION: 56-year-old male with history of schizoaffective disorder, noncompliance, and history of non-pressure foot ulcer to the level of muscle, presented for evaluation of leukocytosis from the assisted facility. Nursing facility reported that chronic wounds were getting worse. The patient by himself denied any complaint, however, he was unreliable in providing history since he had a history of schizophrenia. Laboratory workup revealed WBC- 13.2, hemoglobin -11.5, and hematocrit -36.4. Stable electrolytes. Troponin negative. Urinalysis with few bacteria, +1 leukocyte esterase, and pyuria. Chest x-ray revealed no evidence of acute cardiopulmonary process. Wound culture collected. The patient was started on IV antibiotic. The patient was admitted for further management. ADMITTING DIAGNOSIS 1. Cellulitis of bilateral lower extremities. 2. Possible urinary tract infection. 3. Schizophrenia. 4. Diabetes. 5. Non-pressure ulcer of left ankle to level of muscle. 6. Non-pressure ulcer of left foot to level of muscle. 7. Non-pressure ulcer of right ankle to level of muscle. 8. Noncompliance. 9. Chronic obstructive pulmonary disease. 10. Possible sepsis. HOSPITAL COURSE: The patient was admitted. Infectious Disease specialist, Podiatry, Pulmonary, and Psychiatry consults were requested. The patient was started on the IV antibiotics. Wound culture revealed Pseudomonas aeruginosa, Acinetobacter baumannii complex, and Staphylococcus aureus. While in the hospital, the patient was on the IV antibiotics. Infectious Disease specialist closely followed with antibiotic regimen. Upon discharge, the patient was sent to the facility on oral antibiotic. Wound care of bilateral lower extremities was provided as per central office equipment installer's recommendation, who followed the patient. The patient also had a left ischial tuberosity healing stage III pressure ulcer , present on admission. Wound care provided per wound care nurse recommendation. The patient declined venous duplex of bilateral lower extremities. DVT prophylaxis provided. Supplemental oxygen provided as needed to keep pulse oximetry above 92%. Pulmonary toilet was provided on as needed basis. Chest x-ray revealed no acute cardiopulmonary pathology. Pulse oximetry prior to discharge was stable on room air. No evidence of COPD exacerbation. Blood sugar was managed with sliding scale of insulin. Pain management was provided. Psychiatrist optimized psychiatric medication regimen. No evidence of urinary tract infection. The patient was stable for discharge back to assisted facility. FINAL DIAGNOSES: 1. Cellulitis of bilateral lower extremities. 2. Diabetes with peripheral neuropathy. 3. Non-pressure ulcer of the left ankle to the level of muscle. 4. Non-pressure ulcer of the left foot to the level of muscle. 5. Non-pressure ulcer of the right ankle to the level of muscle. 6. Chronic obstructive pulmonary disease. 7. Noncompliance. 8. Schizophrenia, bipolar type. 9. Left ischial tuberosity healing stage III pressure ulcer, present on admission. DISCHARGE MEDICATIONS: See medication reconciliation list. DISCHARGE INSTRUCTIONS: The patient was discharged to assisted facility. Follow up with medical doctor at the facility. Encouraged compliance. Kike Mills D.O. Bri HoltEllenville Regional HospitalDick N.PKennedy DR: January JOB#: [id number] CC: RYAN
== END 2017-08-30 21:15 | DRG 871 ==
LOC: EDBD 10:30 → EMR 11:50 → 4E 13:35 → EDBEDREQ 14:36
DX: A41.9 Sepsis, unspecified organism (principal); L89.893 Pressure ulcer of other site, stage 3; E11.42 Type 2 diabetes mellitus with diabetic polyneuropathy; L03.116 Cellulitis of left lower limb; L97.315 Non-pressure chronic ulcer of right ankle with muscle involvement without evidence of necrosis; L97.325 Non-pressure chronic ulcer of left ankle with muscle involvement without evidence of necrosis; L97.525 Non-pressure chronic ulcer of other part of left foot with muscle involvement without evidence of necrosis; N39.0 Urinary tract infection, site not specified; F20.0 Paranoid schizophrenia; L03.115 Cellulitis of right lower limb; F41.9 Anxiety disorder, unspecified; J44.9 Chronic obstructive pulmonary disease, unspecified; I10 Essential (primary) hypertension; F17.210 Nicotine dependence, cigarettes, uncomplicated; Z79.82 Long term (current) use of aspirin; Z79.4 Long term (current) use of insulin; Z91.14 Patient's other noncompliance with medication regimen
CPT/HCPCS: 36415; 71045; 80048; 80053; 81003; 82550; 82962; 83690; 84484; 85025; 85610; 85730; 87070; 87181; 87205; 94664; 97803; 99285; J1815